=== PATIENT | female | born 1980 | race African-American/Black ===

== ENCOUNTER 2016-10-12 17:42 | Emergency (ER) | payer SELFPAY ==
[~2016-10-12 17:42] MED LIST: AMOX500C PO; AZIT250T6 PO; CEPH-264 PO; CLIN300C8 PO; ESOM20CA PO; HYDR-2758 PO; HYDR-971 PO; HYDR1TAB10 PO; IBUP200T43 PO; NAPR500T3 PO; OMEP20CA9 PO; OXYC-323 PO; RANITADINE; TRAM50TA PO; clonazepam; dilantin; doxepin; doxycycline PO; paxil; risperdal
[2016-10-12 17:45] VITALS: BP 92/69
--- NOTE | 2016-10-12 18:13 | ED.ADGEN ---
Past History Past Medical History: Anxiety, Bipolar, Depression, Seizure, Schizophrenia Past Surgical History: No Surgical History Smoking: Cigarettes, Less than 1pk/day Alcohol Use: None Drug Use: None Adult General Chief Complaint Chief Complaint Dental pain HPI HPI Patient is a 36 year old female who presents with with dental pain. She states it started hurting earlier today. She has appointment she made 3 days ago for next week to get all her teeth removed. She denies any fevers chills trismus or change in her voice. Review of Systems Review of Systems Constitutional: Denies fever or chills [] Eyes: Denies change in visual acuity, redness, or eye pain [] HENT: Denies nasal congestion or sore throat [] Respiratory: Denies cough or shortness of breath [] Cardiovascular: No additional information not addressed in HPI [] GI: Denies abdominal pain, nausea, vomiting, bloody stools or diarrhea [] : Denies dysuria or hematuria [] Musculoskeletal: Denies back pain or joint pain [] Integument: Denies rash or skin lesions [] Neurologic: Denies headache, focal weakness or sensory changes [] Endocrine: Denies polyuria or polydipsia [] Current Medications Current Medications Current Medications Medications (Trade) Dose Ordered Sig/Thang Start Time Stop Time Status Last Admin Dose Admin Acetaminophen/ Hydrocodone Bitart (Lortab 5/325) 1 tab 1X ONCE 10/12/16 18:35 10/12/16 18:36 DC Penicillin V Potassium (Veetid) 500 mg 1X ONCE 10/12/16 18:45 10/12/16 18:46 Allergies Allergies Allergies Coded Allergies Type Severity Reaction Last Updated Verified lorazepam Allergy Intermediate 02/11/15 Yes Physical Exam Physical Exam Constitutional: Well developed, well nourished, no acute distress, non-toxic appearance. [] HENT: Normocephalic, atraumatic, bilateral external ears normal, oropharynx moist, no oral exudates, nose normal. Dental caries with tenderness palpation in the right upper jaw, no abscess or apical erythema noted Eyes: PERRLA, EOMI, conjunctiva normal, no discharge. [] Neck: Normal range of motion, no tenderness, supple, no stridor. [] Cardiovascular:Heart rate regular rhythm, no murmur [] Lungs & Thorax: Bilateral breath sounds clear to auscultation [] Abdomen: Bowel sounds normal, soft, no tenderness, no masses, no pulsatile masses. [] Skin: Warm, dry, no erythema, no rash. [] Back: No tenderness, no CVA tenderness. [] Extremities: No tenderness, no cyanosis, no clubbing, ROM intact, no edema. [] Neurologic: Alert and oriented X 3, normal motor function, normal sensory function, no focal deficits noted. [] Psychologic: Affect normal, judgement normal, mood normal. [] Current Patient Data Vital Signs Vital Signs Date Time Temp Pulse Resp B/P (MAP) Pulse Ox O2 Delivery O2 Flow Rate FiO2 10/12/16 17:45 98.0 91 20 98 Room Air EKG EKG [] Radiology/Procedures Radiology/Procedures [] Course & Med Decision Making Course & Med Decision Making Pertinent Labs and Imaging studies reviewed. (See chart for details) We'll DC with 12 tablets of Food[employer] and [employer] VK 500 Q6 for 7 days. Final Impression Final Impression Dental pain Problems: Dragon Disclaimer Dragon Disclaimer This electronic medical record was generated, in whole or in part, using a voice recognition dictation system. BRAD CASTANO MD October 12, 2016 18:13
[2016-10-12] MEDS ORDERED: HYDROcodone/APAP 5/325MG 1 TAB TABLET PO ONE (18:35)
[2016-10-12] MEDS ORDERED: PENI500T PO (18:35)
[2016-10-12] MEDS ORDERED: HYDR-971 PO (18:35)
[2016-10-12] MEDS ORDERED: PENICILLIN V K 250 MG TABLET. PO ONE (18:45)
== END 2016-10-12 18:45 | disposition home or self-care (01) ==
LOC: ER 17:42
DX: K08.89 Other specified disorders of teeth and supporting structures (principal); F20.9 Schizophrenia, unspecified; F17.210 Nicotine dependence, cigarettes, uncomplicated; Z88.8 Allergy status to other drugs, medicaments and biological substances
CPT/HCPCS: 99283

== ENCOUNTER 2016-10-23 07:22 | Emergency (ER) | payer SELFPAY ==
[~2016-10-23 07:22] MED LIST changes: +PENI500T PO
[2016-10-23 07:33] VITALS: BP 102/61
--- NOTE | 2016-10-23 07:43 | PHYS DOC ---
Past History Past Medical History: Anxiety, Bipolar, Depression, Seizure, Schizophrenia Past Surgical History: , Hysterectomy Smoking: Cigarettes, Less than 1pk/day Alcohol Use: None Drug Use: None Adult General Chief Complaint Chief Complaint: DENTAL PROBLEM HPI HPI Patient is a 36-year-old female who presents complaining of dental pain. Patient states a couple of days ago she had a tooth pulled and is having pain in that location. She states they put her on penicillin and Tylenol 3 but those are not helping. She states she is allergic to ibuprofen which makes her tongue swell and also allergic to tramadol. She is requesting something stronger for pain. Patient tells me that she saw a dentist in [place]. I did note that when she was here earlier this month she told the physician that she was planning to have all of her teeth pulled. Today she told me that "they aren't going to do that for a couple of weeks", I ask her why not and she stated that they needed to schedule her for a longer time to do that. I advised the patient that she should call the office of the dentist who is treating her, she first told me that she had not call the office, then she told me she had called the office but they do not have an answering service in the past, then she told me she tried calling the office this morning. Review of Systems Review of Systems Constitutional: Denies fever or chills [] HENT: As in history of present illness Allergies Allergies Allergies Coded Allergies Type Severity Reaction Last Updated Verified lorazepam Allergy Intermediate 02/11/15 Yes Physical Exam Physical Exam Constitutional: Well developed, well nourished, alert, mentating normally, no difficulty with speech, handling her secretions well, no difficulty with swallowing. HENT: Normocephalic, atraumatic, bilateral external ears normal, bilateral EACs normal, bilateral TMs normal, generally poor dentition. The left maxillary molars appear to have been fractured off at the gumline. There is no evidence of acute abscess in terms of localized swelling, no purulent drainage, however, her left maxillary gums are moderately inflamed. I do not see evidence of a recent extraction, it appears to me that her teeth were fractured. Eyes: conjunctiva normal, no discharge. [] Neck: Normal range of motion, no stridor. [] Skin: Warm, dry, no erythema, no rash. [] Extremities: No tenderness, no cyanosis, no clubbing, ROM intact, no edema. [] Neurologic: Alert and oriented X 3, normal motor function, normal sensory function, no focal deficits noted. [] Current Patient Data Vital Signs Vital Signs Date Time Temp Pulse Resp B/P (MAP) Pulse Ox O2 Delivery O2 Flow Rate FiO2 10/23/16 07:33 98.3 79 16 98 Room Air EKG EKG [] Radiology/Procedures Radiology/Procedures [] Course & Med Decision Making Course & Med Decision Making Pertinent Labs and Imaging studies reviewed. (See chart for details) 36-year-old female who has had multiple ED visits for dental pain and caries, has been advised multiple times to seek dental follow-up and that we are not able to treat dental pain in the emergency department. She is already on penicillin by her history and does have a dentist to follow-up with. She states ibuprofen makes her tongue swell. I advised her that I will not prescribe further opiates since this is a chronic problem that needs to be managed through her dentist. I strongly advised her to obtain dental follow-up as soon as possible. [] Dragon Disclaimer Dragon Disclaimer This chart was dictated in whole or in part using Voice Recognition software in a busy, high-work load, and often noisy Emergency Department environment. It may contain unintended and wholly unrecognized errors or omissions. Departure Departure: Impression: Primary Impression: Pain due to dental caries Disposition: 01 HOME, SELF-CARE Condition: STABLE Referrals: SARAH NEGRON (PCP) Patient Instructions: Dental Caries Additional Instructions: As we discussed, I recommend that you call the dentist's office and make an appointment as soon as possible. Continue to take the penicillin prescribed by the dentist. You may try cold packs or warm packs to the site of your face, also use a warm saltwater gargle or rinse several times a day. FRANDY GRANADO MD October 23, 2016 07:43
== END 2016-10-23 07:50 | disposition home or self-care (01) ==
LOC: ER 07:22
DX: K02.9 Dental caries, unspecified (principal); F20.9 Schizophrenia, unspecified; F17.210 Nicotine dependence, cigarettes, uncomplicated; Z88.8 Allergy status to other drugs, medicaments and biological substances
CPT/HCPCS: 99281

== ENCOUNTER 2016-11-09 14:29 | Emergency (ER) | payer OTHER ==
[2016-11-09 14:45] VITALS: BP 114/83
--- NOTE | 2016-11-09 16:39 | PHYS DOC ---
Text Text Patient needs to follow up with dental clinic for removal of lower teeth. She will be treated with norco and penicillin for infection General Chief Complaint: DENTAL PROBLEM Stated Complaint: DENTAL PAIN Time Seen by MD: 14:41 Source: patient Exam Limitations: no limitations Problems: History of Present Illness Initial Comments complain of pain to the teeth to the left lower mandible region. States that she has an appointment on November 25 for removal of the lower teeth and then she will be fitted for dentures. She denies any bleeding from the gums She denies any throat pain, swelling or drainage. Denies neck pain or stiffness No fever or chills Timing/Duration: gradual Severity: moderate Location: dental Prearrival Treatment: no prearrival treatment Presenting Symptoms/Injuries: Patient unable to take ibuprofen secondary to ulcer Associated Symptoms: denies symptoms Allergies: Coded Allergies: lorazepam (Verified Allergy, Intermediate, 02/11/15) ibuprofen (Verified Allergy, Unknown, 10/23/16) tramadol (Verified Allergy, Unknown, 10/23/16) Past Medical History Medical History: other (long history of dental carires) Surgical History: noncontributory Family History Significant Family History: no pertinent family hx Social History Alcohol: none Drugs: none Constitutional: no symptoms reported Eyes: no symptoms reported Ears: no symptoms reported Nose: no symptoms reported Mouth: pain, swelling Throat: no symptoms reported Physical Exam Eyes: bilateral eye normal inspection Ears: bilateral ear auricle normal Nose: normal inspection Mouth/Throat: pharynx normal, dental tenderness Neck: non-tender, full range of motion, supple Cardiovascular/Respiratory: regular rate, rhythm, normal breath sounds, no respiratory distress Neurologic/Psychiatric: weed thinner II-XII nml as tested Skin: normal color (lower mandible middle teeth affected with severe caries and erosion of the gum. No abscess noted) BLAKE CAMARILLO MD Nov 09, 2016 16:39
[2016-11-10] MEDS ORDERED: ALPR0.25 PO (07:32)
== END 2016-11-09 16:57 | disposition home or self-care (01) ==
LOC: ER 14:29
DX: K08.89 Other specified disorders of teeth and supporting structures (principal); Z88.6 Allergy status to analgesic agent; Z88.8 Allergy status to other drugs, medicaments and biological substances
CPT/HCPCS: 99283

== ENCOUNTER 2016-11-10 07:01 | Emergency (ER) | payer OTHER ==
[~2016-11-10] VITALS: Ht 154.9 cm; Wt 54.4 kg
[2016-11-10 07:24] VITALS: BP 128/87
--- NOTE | 2016-11-10 07:29 | PHYS DOC ---
Past History Past Medical History: No Pertinent History Past Surgical History: , Hysterectomy Smoking: Cigarettes, Less than 1pk/day Alcohol Use: None Drug Use: None Adult General Chief Complaint Chief Complaint: ANXIETY/PANIC ATTACK HPI HPI This 36-year-old lady who has a history of depression and anxiety presents with panic attacks. She has been on medication for this in the past including lorazepam but does not have any now. She states that she has an appointment for the next several days with her psychiatrist. Review of Systems Review of Systems Constitutional: Denies fever or chills [] Eyes: Denies change in visual acuity, redness, or eye pain [] HENT: Denies nasal congestion or sore throat [] Respiratory: Denies cough or shortness of breath [] Cardiovascular: No additional information not addressed in HPI [] GI: Denies abdominal pain, nausea, vomiting, bloody stools or diarrhea [] : Denies dysuria or hematuria [] Musculoskeletal: Denies back pain or joint pain [] Integument: Denies rash or skin lesions [] Neurologic: Denies headache, focal weakness or sensory changes [] Endocrine: Denies polyuria or polydipsia [] Allergies Allergies Allergies Coded Allergies Type Severity Reaction Last Updated Verified lorazepam Allergy Intermediate 02/11/15 Yes ibuprofen Allergy Unknown 10/23/16 Yes tramadol Allergy Unknown 10/23/16 Yes Physical Exam Physical Exam Constitutional: Well developed, well nourished, no acute distress, non-toxic appearance. [] HENT: Normocephalic, atraumatic, bilateral external ears normal, dry mucous membranes, no oral exudates, nose normal. [] Eyes: PERRLA, EOMI, conjunctiva normal, no discharge. [] Neck: Normal range of motion, no tenderness, supple, no stridor. [] Cardiovascular:Heart rate regular rhythm, no murmur [] Lungs & Thorax: Bilateral breath sounds clear to auscultation [] Abdomen: Bowel sounds normal, soft, no tenderness, no masses, no pulsatile masses. [] Skin: Warm, dry, no erythema, no rash. [] Back: No tenderness, no CVA tenderness. [] Extremities: No tenderness, no cyanosis, no clubbing, ROM intact, no edema. [] Neurologic: Alert and oriented X 3, normal motor function, normal sensory function, no focal deficits noted. [] Psychologic: Affect is somewhat flat, judgement normal, mood normal. [] EKG EKG [] Radiology/Procedures Radiology/Procedures [] Impressions: Anxiety depression Course & Med Decision Making Course & Med Decision Making Pertinent Labs and Imaging studies reviewed. (See chart for details) Patient was instructed she needs to follow-up with her psychiatrist for his problem however she was given a prescription for a few Xanax [] Dragon Disclaimer Dragon Disclaimer This chart was dictated in whole or in part using Voice Recognition software in a busy, high-work load, and often noisy Emergency Department environment. It may contain unintended and wholly unrecognized errors or omissions. Departure Departure: Referrals: SARAH NEGRON (PCP) BETHEL LUNSFORD MD Nov 10, 2016 07:29
[2016-11-10] MEDS ORDERED: ALPR0.25 PO (07:32)
== END 2016-11-10 07:37 | disposition home or self-care (01) ==
LOC: ER 07:01
DX: F41.9 Anxiety disorder, unspecified (principal); F32.9 Major depressive disorder, single episode, unspecified; F17.210 Nicotine dependence, cigarettes, uncomplicated; Z88.6 Allergy status to analgesic agent; Z88.8 Allergy status to other drugs, medicaments and biological substances
CPT/HCPCS: 99283; 99284

== ENCOUNTER 2016-11-16 13:46 | Emergency (ER) | payer OTHER ==
[~2016-11-16] VITALS: Ht 154.9 cm; Wt 54.5 kg
[~2016-11-16 13:46] MED LIST changes: +ALPR0.25 PO
[2016-11-16 13:55] VITALS: BP 111/75
--- NOTE | 2016-11-16 14:12 | ED.ADGEN ---
Past History Past Medical History: Anxiety, Depression, Seizure Past Surgical History: , Hysterectomy Smoking: Cigarettes, Less than 1pk/day Alcohol Use: None Drug Use: None Adult General Chief Complaint Chief Complaint anxiety HPI HPI Patient is a 36 year old female who presents with siting apparently attacks with no obvious triggers this occurs quite frequently she has had some mental health evaluations in the past and used to take Klonopin but is evasive about why she is not on it anymore. Patient denies suicidal or homicidal ideation. Patient denies auditory or visual hallucinations. Denies fever or headache chest pain shortness of breath or abdominal pain. Review of Systems Review of Systems Constitutional: Denies fever or chills [] Eyes: Denies change in visual acuity, redness, or eye pain [] HENT: Denies nasal congestion or sore throat [] Respiratory: Denies cough or shortness of breath [] Cardiovascular: No additional information not addressed in HPI [] GI: Denies abdominal pain, nausea, vomiting, bloody stools or diarrhea [] : Denies dysuria or hematuria [] Musculoskeletal: Denies back pain or joint pain [] Integument: Denies rash or skin lesions [] Neurologic: Denies headache, focal weakness or sensory changes [] Endocrine: Denies polyuria or polydipsia [] Current Medications Current Medications Current Medications Medications (Trade) Dose Ordered Sig/Thang Start Time Stop Time Status Last Admin Dose Admin Lorazepam (Ativan) 1 mg 1X ONCE 11/16/16 14:15 11/16/16 14:16 UNV Allergies Allergies Allergies Coded Allergies Type Severity Reaction Last Updated Verified lorazepam Allergy Intermediate 02/11/15 Yes ibuprofen Allergy Unknown 10/23/16 Yes tramadol Allergy Unknown 10/23/16 Yes Physical Exam Physical Exam Constitutional: Well developed, well nourished, no acute distress, non-toxic appearance. [] HENT: Normocephalic, atraumatic, bilateral external ears normal, oropharynx moist, no oral exudates, nose normal. [] Eyes: PERRLA, EOMI, conjunctiva normal, no discharge. [] Neck: Normal range of motion, no tenderness, supple, no stridor. [] Cardiovascular:Heart rate regular rhythm, no murmur [] Lungs & Thorax: Bilateral breath sounds clear to auscultation [] Abdomen: Bowel sounds normal, soft, no tenderness, no masses, no pulsatile masses. [] Skin: Warm, dry, no erythema, no rash. [] Back: No tenderness, no CVA tenderness. [] Extremities: No tenderness, no cyanosis, no clubbing, ROM intact, no edema. [] Neurologic: Alert and oriented X 3, normal motor function, normal sensory function, no focal deficits noted. [] Psychologic: Affect is flat, judgement normal, mood somewhat depressed and mildly to moderately anxious. No suicidal IDEATION AND AUDITORY OR VISUAL HALLUCINATION.. [] Current Patient Data Vital Signs Vital Signs Date Time Temp Pulse Resp B/P (MAP) Pulse Ox O2 Delivery O2 Flow Rate FiO2 11/16/16 13:55 97.9 100 20 99 Room Air EKG EKG [] Radiology/Procedures Radiology/Procedures [] Course & Med Decision Making Course & Med Decision Making Pertinent Labs and Imaging studies reviewed. (See chart for details) Patient was given resources for outpatient psychiatric follow-up. She has requested prescription for anxiety medication which have advised her to follow- up with a PCP. Give her one Xanax tablet here. Patient is stable for outpatient management and evaluation she does not represent a threat to others or to herself and she does not suffer from psychosis at this time. [] Final Impression Final Impression Anxiety disorder [] Problems: Dragon Disclaimer Dragon Disclaimer This electronic medical record was generated, in whole or in part, using a voice recognition dictation system. EDUARDO MARTIN MD Nov 16, 2016 14:12
[2016-11-16] MEDS ORDERED: LORazepam 1 MG TABLET PO ONE (14:15)
[2016-11-16] MEDS ORDERED: ALPRAZolam 0.25 MG TABLET PO ONE (14:30)
[2016-11-17] MEDS ORDERED: HYDR-971 PO (20:56)
[2016-11-17] MEDS ORDERED: PENI500T PO (20:56)
== END 2016-11-16 14:52 | disposition home or self-care (01) ==
LOC: ER 13:46
DX: F41.9 Anxiety disorder, unspecified (principal); F32.9 Major depressive disorder, single episode, unspecified; F17.210 Nicotine dependence, cigarettes, uncomplicated; Z88.6 Allergy status to analgesic agent; Z88.8 Allergy status to other drugs, medicaments and biological substances
CPT/HCPCS: 99284

== ENCOUNTER 2016-11-17 20:13 | Emergency (ER) | payer OTHER ==
[~2016-11-17] VITALS: Ht 154.9 cm; Wt 54.5 kg
--- NOTE | 2016-11-17 20:16 | ED.ADGEN ---
Past History Past Medical History: Anxiety, Depression, Seizure Past Surgical History: , Hysterectomy Smoking: Cigarettes, Less than 1pk/day Alcohol Use: None Drug Use: None Adult General Chief Complaint Chief Complaint Dental pain HPI HPI Patient is a 36 year old [place] female who presents with. She states she's having pain in the right lower jaw that started yesterday. She states she has a dentist appointment on 25 November to get the rest of her teeth pulled. She states that over the years a been 0.1 or 2 teeth at a time and following the event to pull all them out. She denies any trismus, change in voice fevers chills or vomiting. He states that she is allergic to tramadol and she took Tylenol earlier with this just not working. Review of Systems Review of Systems Constitutional: Denies fever or chills [] Eyes: Denies change in visual acuity, redness, or eye pain [] HENT: Denies nasal congestion or sore throat [] Respiratory: Denies cough or shortness of breath [] Cardiovascular: No additional information not addressed in HPI [] GI: Denies abdominal pain, nausea, vomiting, bloody stools or diarrhea [] : Denies dysuria or hematuria [] Musculoskeletal: Denies back pain or joint pain [] Integument: Denies rash or skin lesions [] Neurologic: Denies headache, focal weakness or sensory changes [] Endocrine: Denies polyuria or polydipsia [] Allergies Allergies Allergies Coded Allergies Type Severity Reaction Last Updated Verified lorazepam Allergy Intermediate 02/11/15 Yes ibuprofen Allergy Unknown 10/23/16 Yes tramadol Allergy Unknown 10/23/16 Yes Physical Exam Physical Exam Constitutional: Well developed, well nourished, no acute distress, non-toxic appearance. [] HENT: Normocephalic, atraumatic, bilateral external ears normal, oropharynx moist, no oral exudates, nose normal. Numerous dental caries and poor dentition , tender palpation over the right lower jawline, no obvious abscess, no [place] angina. Eyes: PERRLA, EOMI, conjunctiva normal, no discharge. [] Neck: Normal range of motion, no tenderness, supple, no stridor. [] Cardiovascular:Heart rate regular rhythm, no murmur [] Lungs & Thorax: Bilateral breath sounds clear to auscultation [] Abdomen: Bowel sounds normal, soft, no tenderness, no masses, no pulsatile masses. [] Skin: Warm, dry, no erythema, no rash. [] Back: No tenderness, no CVA tenderness. [] Extremities: No tenderness, no cyanosis, no clubbing, ROM intact, no edema. [] Neurologic: Alert and oriented X 3, normal motor function, normal sensory function, no focal deficits noted. [] Psychologic: Affect normal, judgement normal, mood normal. [] Current Patient Data Vital Signs Vital Signs Date Time Temp Pulse Resp B/P (MAP) Pulse Ox O2 Delivery O2 Flow Rate FiO2 11/17/16 20:32 97.6 93 20 98 Room Air EKG EKG [] Radiology/Procedures Radiology/Procedures [] Course & Med Decision Making Course & Med Decision Making Pertinent Labs and Imaging studies reviewed. (See chart for details) Appreciate any abscesses that need to be drained or the patient be referred on. We'll treat with Pen-Vee K for a week and 12 tablets of hydrocodone. Patient's being discharged in stable condition with return precautions. Final Impression Final Impression Dental pain Problems: Dragon Disclaimer Dragon Disclaimer This electronic medical record was generated, in whole or in part, using a voice recognition dictation system. BRAD CASTANO MD Nov 17, 2016 20:16
[2016-11-17 20:32] VITALS: BP 104/69
[2016-11-17] MEDS ORDERED: PENI500T PO (20:56)
[2016-11-17] MEDS ORDERED: HYDR-971 PO (20:56)
[2016-11-17] MEDS ORDERED: HYDROcodone/APAP 5/325MG 1 TAB TABLET PO ONE (21:00)
== END 2016-11-17 21:27 | disposition home or self-care (01) ==
LOC: ER 20:13
DX: K08.89 Other specified disorders of teeth and supporting structures (principal); F17.210 Nicotine dependence, cigarettes, uncomplicated; Z88.6 Allergy status to analgesic agent; Z88.8 Allergy status to other drugs, medicaments and biological substances
CPT/HCPCS: 99283

== ENCOUNTER 2016-11-27 05:15 | Emergency (ER) | payer OTHER ==
[~2016-11-27] VITALS: Ht 154.9 cm; Wt 54.4 kg
[2016-11-27] MEDS ORDERED: zyprexa (05:33)
--- NOTE | 2016-11-27 05:44 | PHYS DOC ---
Past History Past Medical History: Anxiety, Depression, Seizure Additional Past Medical Histor: drug-seeking behavior Past Surgical History: , Hysterectomy Smoking: Cigarettes, Less than 1pk/day Alcohol Use: None Drug Use: None Adult General Chief Complaint Chief Complaint: ANXIETY/PANIC ATTACK [facility] Patient is a pleasant 36-year-old female with a history of chronic anxiety and dental caries with problems with chronic pain who presents with anxiety tonight. She says that the anxiety is been bothering her since her son at age 1 in 1999. She has frequent attacks is normally on clonazepam for her symptoms. She sees the local health facility here for her treatments and she normally goes for counseling once a month. Tonight her chest is which is typical for her attacks was across her chest without chest pain, dizziness, nausea, vomiting, cough, runny nose or fevers chills. She admits this is nothing new but she's not any medication at this time is looking for treatment. She denies any trauma, travel, pulmonary embolism risk factors, she denies any drug use at this time. When I confronted the patient about her 14 visits for similar complaints over the last year she denied having come to the ER 3 times and she believes that someone else might be using her name. Although her complaint is almost identical to several prior visits she became very defensive. It is my concern that she is beginning to use the emergency department for her primary care although there is nothing new about her symptoms today she believes that she isn't need of acute treatment for her anxiety. Review of Systems Review of Systems Constitutional: Denies fever or chills [] Eyes: Denies change in visual acuity, redness, or eye pain [] HENT: Denies nasal congestion or sore throat [] Respiratory: Denies cough she does complain of chest tightness with her chest discomfort Cardiovascular: No additional information not addressed in HPI [] GI: Denies abdominal pain, nausea, vomiting, bloody stools or diarrhea [] : Denies dysuria or hematuria [] Musculoskeletal: Denies back pain or joint pain [] Integument: Denies rash or skin lesions [] Neurologic: Denies headache, focal weakness or sensory changes [] Endocrine: Denies polyuria or polydipsia [] Allergies Allergies Allergies Coded Allergies Type Severity Reaction Last Updated Verified ibuprofen Allergy Unknown 10/23/16 Yes tramadol Allergy Unknown 10/23/16 Yes lorazepam Adverse Reaction Intermediate 11/27/16 Yes Physical Exam Physical Exam Vital signs reviewed unremarkable. Constitutional: Well developed, well nourished, patient is no acute distress but obviously anxious. HENT: Normocephalic, atraumatic, bilateral external ears normal, dry mucous membranes with almost no dentition, no oral exudates, nose normal. [] Eyes: PERRLA, EOMI, conjunctiva normal, no discharge. [] Neck: Normal range of motion, no tenderness, supple, no stridor. [] Cardiovascular:Heart rate regular rhythm, no murmur [] Lungs & Thorax: Bilateral breath sounds clear to auscultation [] Abdomen: Bowel sounds normal, soft, no tenderness, no masses, no pulsatile masses. [] Skin: Warm, dry, no erythema, no rash. [] Back: No tenderness, no CVA tenderness. [] Extremities: No tenderness, no cyanosis, no clubbing, ROM intact, no edema. [] Neurologic: Alert and oriented X 3, normal motor function, normal sensory function, no focal deficits noted. [] Psychologic: Patient is very anxious and very defiant that she is not been here to the emergency department more than 3 times last year. EKG EKG [] Time 5:47 AM demonstrates normal sinus rhythm low voltage QRS and normal MI interval, QRS interval normal QTC no evidence of acute coronary event or ischemia. Radiology/Procedures Radiology/Procedures Two-view chest x-ray PA and lateral done at 5:53 AM 11/27/2016 demonstrates normal lung deras no hyperinflation no pleural effusion or pericardial effusion normal cardiac size without specific infiltrate. No evidence of pneumothorax or subdiaphragmatic air. [] Course & Med Decision Making Course & Med Decision Making Pertinent Labs and Imaging studies reviewed. (See chart for details) reviewed patient's nursing notes, vital signs, physical exam findings and chest x-ray and EKG given duration of symptoms for the last 17 years patient having anxiety since the of her son. She seems to use the emergency department as her primary care doctor we talked about how she needs to follow-up with her primary care physician. I worried about her drug-seeking behavior and her continued denial of her frequency of use. I discussed with her referral to psychiatry and pain to help to help out with her symptoms. Although she is saying she is anxious her vital signs are stable and she demonstrates no occult withdrawal symptoms. I will advise that she follows up for refill her clonazepam as she takes chronically. Impression: Long-standing anxiety, questionable drug-seeking behavior, chronic benzodiazepine use Disposition PCP referral to psychiatry and possible therapy for her benzo use. [] Dragon Disclaimer Dragon Disclaimer This chart was dictated in whole or in part using Voice Recognition software in a busy, high-work load, and often noisy Emergency Department environment. It may contain unintended and wholly unrecognized errors or omissions. Departure Departure: Impression: Primary Impression: Anxiety and depression Additional Impression: Drug-seeking behavior Disposition: HOME, SELF-CARE Condition: STABLE Referrals: SARAH NEGRON (PCP) Patient Instructions: Alcohol and Drug Addiction, Finding Treatment, Anxiety and Panic Attacks Additional Instructions: I'm concerned with this patient's presentation that they may be addicted to narcotic medications and benzodiazepines. Their behavior could be described as drug seeking in nature and I'm concerned that if I do not explain to them my concerns and we have a discussion about how to treat this in the future we will continue to see them using these medications and possibly dangerous manners. We talked about over utilization of these medications associated with narcotics to include acetaminophen when taking large doses can cause liver injury that is permanent nature. We discussed a treatment plan and need for follow-up with a paint mixer machine to talk about alternatives to narcotic medications. We also talked about possible psychiatric intervention to help him cope with her chronic pain condition. We also discussed possible social work involvement or addiction treatment involvement to help address the possible withdrawal symptoms that she may be experiencing which is causing the further use narcotics in this way. I will take the time to provide them addiction clinic information in the follow- up if they choose to accept my help. Scripts Clonazepam (CLONAZEPAM) 1 Mg Tablet 1 TAB PO TID, #7 TAB 0 Refills Prov: JAZMIN GARIBAY MD 11/27/16 Problem Qualifiers JAZMIN GARIBAY MD Nov 27, 2016 05:44
[2016-11-27 06:10] VITALS: BP 124/84
[2016-11-27] MEDS ORDERED: CLON1TAB3 PO (06:11)
--- NOTE | 2016-11-27 06:28 | EKG ---
[address] [address] Test Date: 2016-11-27 Test Time: 05:47:45 Pat Name: CIRA SINGH Department: Room: Gender: F Firer Low Pressure: : 1980 Requested By: JAZMIN GARIBAY Order Number: [id number] Reading MD: Measurements Intervals [place] Rate: 96 P: 36 LA: 110 QRS: 54 QRSD: 84 T: 43 QT: 366 QTc: 469 Interpretive Statements SINUS RHYTHM LOW LIMB LEAD VOLTAGE QRS(T) CONTOUR ABNORMALITY CANNOT RULE OUT ANTEROSEPTAL MYOCARDIAL DAMAGE RI6.01 Unconfirmed report No previous ECG available for comparison
--- NOTE | 2016-11-27 08:14 | RAD ---
PA AND LATERAL CHEST RADIOGRAPH Clinical Indication: CHEST TIGHTNESS And shortness of air today Comparison: Frontal chest 09/14/2014. Findings: The cardiomediastinal silhouette is normal. Pulmonary vasculature is normal. The lungs are clear. No pleural effusion or pneumothorax is seen. There is no acute bone abnormality. IMPRESSION: No acute cardiopulmonary process.
== END 2016-11-27 06:14 | disposition home or self-care (01) ==
LOC: ER 05:15
DX: F41.8 Other specified anxiety disorders (principal); R07.89 Other chest pain; G89.29 Other chronic pain; F17.210 Nicotine dependence, cigarettes, uncomplicated; Z76.5 Malingerer [conscious simulation]; Z88.6 Allergy status to analgesic agent; Z88.8 Allergy status to other drugs, medicaments and biological substances
CPT/HCPCS: 71020; 93005; 99284-25

== ENCOUNTER 2016-11-27 12:46 | Emergency (ER) | payer MEDICAID, OTHER ==
[~2016-11-27] VITALS: Ht 154.9 cm; Wt 54.5 kg
[~2016-11-27 12:46] MED LIST changes: +CLON1TAB3 PO; +zyprexa
[2016-11-27 12:52] VITALS: BP 124/84
--- NOTE | 2016-11-27 14:32 | PHYS DOC ---
Past History Past Medical History: Anxiety, Depression, Seizure Additional Past Medical Histor: drug-seeking behavior Past Surgical History: , Hysterectomy Smoking: Cigarettes, Less than 1pk/day Alcohol Use: None Drug Use: None Adult General Chief Complaint Chief Complaint: Toothache HPI HPI 36-year-old female well known to our emergency medicine service frequent visits for anxiety and drug seeking behavior with frequent complaint of dental pain and now presents emergency department complaining of dental pain however patient recently had all her teeth removed. All wounds are healed and her gums are intact but she still complaining of dental pain and requesting pain medicine. He was seen hydro mechanic this morning with a complaint of anxiety and was prescribed clonazepam. Is sleepy now but she states this just because she is tired now because of taking the benzodiazepine. Eyes depression or suicidal ideation currently. Review of Systems Review of Systems Constitutional: Denies fever or chills [] Eyes: Denies change in visual acuity, redness, or eye pain [] HENT: Denies nasal congestion or sore throat [] Respiratory: Denies cough or shortness of breath [] Cardiovascular: No additional information not addressed in HPI [] GI: Denies abdominal pain, nausea, vomiting, bloody stools or diarrhea [] : Denies dysuria or hematuria [] Musculoskeletal: Denies back pain or joint pain [] Integument: Denies rash or skin lesions [] Neurologic: Denies headache, focal weakness or sensory changes [] Endocrine: Denies polyuria or polydipsia [] Allergies Allergies Allergies Coded Allergies Type Severity Reaction Last Updated Verified ibuprofen Allergy Unknown 10/23/16 Yes tramadol Allergy Unknown 10/23/16 Yes lorazepam Adverse Reaction Intermediate 11/27/16 Yes Physical Exam Physical Exam Constitutional: Patient fatigued appearing sleeping frequently but easily awaken to verbal stimuli. alert and appropriate when awakened no acute distress , non-toxic appearance. [] HENT: Normocephalic, atraumatic, bilateral external ears normal, oropharynx moist, no oral exudates, since completely edentulous with normal appearing gums no unhealed wounds no soft tissue swelling or erythema and no lesion or mass. Nose normal. [] Eyes: PERRLA, EOMI, conjunctiva normal, no discharge. [] Neck: Normal range of motion, no tenderness, supple, no stridor. [] Cardiovascular:Heart rate regular rhythm, no murmur [] Lungs & Thorax: Bilateral breath sounds clear to auscultation [] Abdomen: Bowel sounds normal, soft, no tenderness, no masses, no pulsatile masses. [] Skin: Warm, dry, no erythema, no rash. [] Back: No tenderness, no CVA tenderness. [] Extremities: No tenderness, no cyanosis, no clubbing, ROM intact, no edema. [] Neurologic: Alert and oriented X 3, normal motor function, normal sensory function, no focal deficits noted. [] Psychologic: Fatigued appearing, judgement normal, mood normal. [] EKG EKG [] Radiology/Procedures Radiology/Procedures [] Course & Med Decision Making Course & Med Decision Making Pertinent Labs and Imaging studies reviewed. (See chart for details) [] Dragon Disclaimer Dragon Disclaimer This chart was dictated in whole or in part using Voice Recognition software in a busy, high-work load, and often noisy Emergency Department environment. It may contain unintended and wholly unrecognized errors or omissions. Departure Departure: Impression: Primary Impression: Drug-seeking behavior Additional Impression: Status post tooth extraction Disposition: 01 HOME, SELF-CARE Condition: STABLE Referrals: SARAH NEGRON (PCP) Additional Instructions: Your dental extraction sites are well-healed and there is no sign of infection, swelling, or abnormality. Her concern that her sleepiness is a result of U taking too much of the narcotics were prescribed this morning. Take ibuprofen as needed for any Discomfort and if you do take your narcotic prescription make sure to not drink alcohol or take other narcotics or benzodiazepines in addition to it. Follow-up with your doctor in 1 day for reevaluation and to discuss safety with narcotic use. Problem Qualifiers MICKY CACERES MD Nov 27, 2016 14:32
== END 2016-11-27 14:40 | disposition home or self-care (01) ==
LOC: ER 12:46
DX: Z76.5 Malingerer [conscious simulation] (principal); F41.9 Anxiety disorder, unspecified; F32.9 Major depressive disorder, single episode, unspecified; F17.210 Nicotine dependence, cigarettes, uncomplicated; Z98.818 Other dental procedure status; Z88.6 Allergy status to analgesic agent; Z88.8 Allergy status to other drugs, medicaments and biological substances
CPT/HCPCS: 99281

== ENCOUNTER 2016-11-29 08:39 | Emergency (ER) | payer MEDICAID, OTHER ==
[~2016-11-29] VITALS: Ht 154.9 cm; Wt 54.4 kg
[2016-11-29 08:52] VITALS: BP 107/77
--- NOTE | 2016-11-29 09:01 | PHYS DOC ---
Past History Past Medical History: No Pertinent History Additional Past Medical Histor: drug-seeking behavior Past Surgical History: , Hysterectomy, Other Smoking: Cigarettes, Less than 1pk/day Alcohol Use: None Drug Use: None Adult General Chief Complaint Chief Complaint: DENTAL PROBLEM HPI HPI This 36-year-old presents with dental pain she has recently had her teeth extracted in the lower mandibular teeth. She had hydrocodone for pain and is on antibiotics but she is out of her hydrocodone. Review of Systems Review of Systems Constitutional: Denies fever or chills [] Eyes: Denies change in visual acuity, redness, or eye pain [] HENT: Denies nasal congestion or sore throat [] Respiratory: Denies cough or shortness of breath [] Cardiovascular: No additional information not addressed in HPI [] GI: Denies abdominal pain, nausea, vomiting, bloody stools or diarrhea [] : Denies dysuria or hematuria [] Musculoskeletal: Denies back pain or joint pain [] Integument: Denies rash or skin lesions [] Neurologic: Denies headache, focal weakness or sensory changes [] Endocrine: Denies polyuria or polydipsia [] Allergies Allergies Allergies Coded Allergies Type Severity Reaction Last Updated Verified ibuprofen Allergy Unknown 10/23/16 Yes tramadol Allergy Unknown 10/23/16 Yes lorazepam Adverse Reaction Intermediate 11/27/16 Yes Physical Exam Physical Exam Constitutional: Well developed, well nourished, no acute distress, non-toxic appearance. [] HENT: Normocephalic, atraumatic, bilateral external ears normal, oropharynx moist, no oral exudates, nose normal. There is obvious dental extractions in her entire mandibular teeth. Eyes: PERRLA, EOMI, conjunctiva normal, no discharge. [] Neck: Normal range of motion, no tenderness, supple, no stridor. [] Cardiovascular:Heart rate regular rhythm, no murmur [] Lungs & Thorax: Bilateral breath sounds clear to auscultation [] Abdomen: Bowel sounds normal, soft, no tenderness, no masses, no pulsatile masses. [] Skin: Warm, dry, no erythema, no rash. [] Back: No tenderness, no CVA tenderness. [] Extremities: No tenderness, no cyanosis, no clubbing, ROM intact, no edema. [] Neurologic: Alert and oriented X 3, normal motor function, normal sensory function, no focal deficits noted. [] Psychologic: Affect normal, judgement normal, mood normal. [] Current Patient Data Vital Signs Vital Signs Date Time Temp Pulse Resp B/P (MAP) Pulse Ox O2 Delivery O2 Flow Rate FiO2 11/29/16 08:52 100.0 92 18 99 Room Air EKG EKG [] Radiology/Procedures Radiology/Procedures [] Impressions: Dental pain Course & Med Decision Making Course & Med Decision Making Patient was given 2 hydrocodone/APAP in the emergency department and she will given given a prescription for pain medications [] Dragon Disclaimer Dragon Disclaimer This chart was dictated in whole or in part using Voice Recognition software in a busy, high-work load, and often noisy Emergency Department environment. It may contain unintended and wholly unrecognized errors or omissions. Departure Departure: Referrals: SARAH NEGRON (PCP) BETHEL LUNSFORD MD Nov 29, 2016 09:01
[2016-11-29] MEDS ORDERED: HYDR-2758 PO (09:04)
[2016-11-29] MEDS ORDERED: HYDROcodone/APAP 5/325MG 1 TAB TABLET PO ONE (09:10)
== END 2016-11-29 09:21 | disposition home or self-care (01) ==
LOC: ER 08:39
DX: K08.89 Other specified disorders of teeth and supporting structures (principal); F17.200 Nicotine dependence, unspecified, uncomplicated; Z76.5 Malingerer [conscious simulation]; Z88.6 Allergy status to analgesic agent; Z88.8 Allergy status to other drugs, medicaments and biological substances
CPT/HCPCS: 99283

== ENCOUNTER 2016-12-01 13:42 | Emergency (ER) | payer OTHER ==
[~2016-12-01] VITALS: Ht 157.5 cm; Wt 45.4 kg
[2016-12-01 13:42] VITALS: BP 120/84
--- NOTE | 2016-12-01 14:44 | PHYS DOC ---
General Chief Complaint: DENTAL PROBLEM Stated Complaint: DENTAL PAIN Time Seen by MD: 14:26 Source: patient, old records Exam Limitations: no limitations Problems: History of Present Illness Initial Comments Patient is a 36-year-old female who comes to the emergency department complaining of mouth pain. Patient had 11 teeth pulled last Tuesday, she states that she is taking penicillin has run out of pain medications. She was seen here twice this past week for the same issue, she was given an unknown quantity of pain medication 4 days ago. Her primary complaint is the region of her right lower premolars, she says that where she had the worst of her dental infections in the past. She denies fever chills sweats or myalgias no headache neck stiffness rash. She has discomfort with eating but no issues with by mouth liquid intake. She denies other complaints and continues to smoke cigarettes. This patient is well known to the department as she has had 11 emergency department visits since June 06 of this year, all for either drug-seeking behavior, anxiety, or dental pain. Timing/Duration: other Severity: severe Location: mouth Prearrival Treatment: over the counter meds, prescription meds Modifying Factors: improves with other Associated Symptoms: other Allergies: Coded Allergies: ibuprofen (Verified Allergy, Unknown, 10/23/16) tramadol (Verified Allergy, Unknown, 10/23/16) lorazepam (Verified Adverse Reaction, Intermediate, 11/27/16) Past Medical History Medical History: other (drug-seeking behavior, anxiety, dental caries and chronic dental pain) Surgical History: other ( section, hysterectomy, D&C, tooth extractions ) Family History Significant Family History: no pertinent family hx Social History Smoker: cigarettes Alcohol: occasionally Drugs: none Constitutional: denies chills, denies diaphoresis, denies fever, denies malaise , denies weakness Ears: denies dizziness, denies pain, denies tinnitus Nose: denies clots, denies congestion, denies epistaxis Mouth: see HPI Throat: denies pain, denies swelling, denies neck stiffness Respiratory: denies cough, denies shortness of breath Cardiovascular: denies chest pain, denies palpitations Gastrointestinal: denies diarrhea, denies nausea, denies vomiting Neurological: denies headache, denies numbness, denies paresthesia Physical Exam General Appearance: mild distress, thin Eyes: bilateral eye normal inspection, bilateral eye PERRL, bilateral eye EOMI Nose: normal inspection Mouth/Throat: other (dentition absent, there is an open wound in the area of her complaint of the right lower premolars, mild gingival swelling and bruising are noted. There is no bony tenderness or exudate noted. 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 She has not followed up with her dentist and she was advised that she must contact her dentist and that no further narcotic medications would be prescribed for this condition moving forward. Patient expressed agreement and understanding. She was advised to stop smoking Departure Time of Disposition: 14:39 Disposition: 01 HOME, SELF-CARE Diagnosis: gingivitis, tobaccoism Condition: GOOD Patient Instructions: Gingivitis, [id number] Additional Instructions: Continue Penicillin. Listerine gargle and spit three times daily. Rx: norco 5mg #5 Stop smoking, seek medical assistance if necessary. No further narcotic pain medications will be prescribed from this ED for this chronic condition. Must follow up with oral surgeon. Call your oral surgeon today to schedule BRIDGET evaluation. Return to ED with new or changing symptoms. MJ ALVAREZ DO Dec 01, 2016 14:44
[2016-12-01] MEDS ORDERED: HYDROcodone/APAP 5/325MG 1 TAB TABLET PO ONE (15:00)
== END 2016-12-01 14:57 | disposition home or self-care (01) ==
LOC: ER 13:42
DX: K05.10 Chronic gingivitis, plaque induced (principal); F17.210 Nicotine dependence, cigarettes, uncomplicated; F41.9 Anxiety disorder, unspecified; G89.29 Other chronic pain; Z76.5 Malingerer [conscious simulation]; Z98.818 Other dental procedure status; Z88.6 Allergy status to analgesic agent; Z88.8 Allergy status to other drugs, medicaments and biological substances
CPT/HCPCS: 99283

== ENCOUNTER 2016-12-07 22:07 | Emergency (ER) | payer OTHER ==
[~2016-12-07] VITALS: Ht 157.5 cm; Wt 54.5 kg
[2016-12-07 22:07] VITALS: BP 116/80
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
[2016-12-07] MEDS ORDERED: cefTRIAXone IM 1 GM VIAL IM ONE (23:15)
[2016-12-07] MEDS ORDERED: ACETAMINOPHEN/CODEINE 300/30MG TABLET PO ONE (23:15)
== END 2016-12-07 23:35 | disposition home or self-care (01) ==
LOC: ER 22:07
DX: Z76.5 Malingerer [conscious simulation] (principal); Z91.19 Patient's noncompliance with other medical treatment and regimen; G89.29 Other chronic pain; K08.89 Other specified disorders of teeth and supporting structures; F17.210 Nicotine dependence, cigarettes, uncomplicated; Z98.818 Other dental procedure status; Z88.6 Allergy status to analgesic agent; Z88.8 Allergy status to other drugs, medicaments and biological substances
CPT/HCPCS: 99281

== ENCOUNTER 2016-12-18 19:56 | Emergency (ER) | payer OTHER ==
[~2016-12-18] VITALS: Ht 154.9 cm; Wt 54.4 kg
[2016-12-18 20:00] VITALS: BP 131/57
[2016-12-18] MEDS ORDERED: STARTER PACK-hydrOXYzine 1 STARTPACK TABLET PO ONE (20:45)
--- NOTE | 2016-12-18 20:52 | PHYS DOC ---
General Chief Complaint: ANXIETY/PANIC ATTACK Stated Complaint: ANXIETY Time Seen by MD: 19:57 Source: patient, old records Exam Limitations: no limitations Problems: History of Present Illness Initial Comments Patient is a 36-year-old female known to this facility with numerous prior ED visits for dental pain and anxiety who comes to the ED complaining of a panic attack. Patient states that she is very anxious about the of her child and her aunt. When asked about her symptoms she described dizziness nausea and trouble breathing. Denies chest pain headache or focal weakness no nausea vomiting. The patient's son 17 years ago at the age of 2. She says her aunt years ago as well. She says she has frequent panic attacks for which she takes clonazepam and follows at the [facility] twice monthly. She denies current suicidal or homicidal ideation and denies any new or abnormal symptoms or stressors/circumstances. She is out of clonazepam and says that "my doctor wouldn't get me in." She is here requesting a prescription for clonazepam or similar. She denies addiction or history of withdrawal symptoms denies hallucinations or tremor. When asked about the numerous ED visits to this facility for nearly identical symptoms the patient becomes defensive and denies that history. She says someone must be stealing her identity and coming to this facility in her place. The patient does appear to be lethargic with mildly slurred speech and she is very slow moving. She appears to be medicated but denies prescription or illicit intake. ED vital signs: 98.7, 81, 20, 131/57, 98% on room air Timing/Duration: 1-3 hours Severity: severe Modifying Factors: improves with medication Associated Symptoms: nausea/vomiting, shortness of breath Allergies: Coded Allergies: ibuprofen (Verified Allergy, Unknown, 10/23/16) tramadol (Verified Allergy, Unknown, 10/23/16) lorazepam (Verified Adverse Reaction, Intermediate, 11/27/16) Past Medical History Medical History: GERD, peptic ulcer disease, seizure, other (anxiety, depression, chronic dental pain, drug-seeking behavior) Surgical History: other (, hysterectomy) Family History Significant Family History: no pertinent family hx Social History Smoker: cigarettes Alcohol: occasionally Drugs: none Review of Systems Constitutional: see HPI, denies chills, denies diaphoresis, denies fever EENTM: see HPI Respiratory: see HPI, denies cough, denies wheezing Cardiovascular: see HPI, denies chest pain, palpitations, denies syncope Gastrointestinal: abdominal pain, denies diarrhea, nausea, denies vomiting Musculoskeletal: denies back pain, denies joint swelling, denies neck pain Psychiatric/Neurological: see HPI Physical Exam General Appearance: WD/WN, no apparent distress (pt sitting quietly on bed in exam room) Eyes: bilateral eye normal inspection, bilateral eye PERRL, bilateral eye EOMI Ear, Nose, Throat: hearing grossly normal, normal ENT inspection Neck: non-tender, supple Respiratory: normal breath sounds, no respiratory distress Cardiovascular: normal peripheral pulses, regular rate, rhythm Gastrointestinal: non tender, soft Back: no CVA tenderness, no vertebral tenderness Extremities: non-tender, normal inspection 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 slow purposeful movements no tremor no SI/HI), oriented x 3 Skin: normal color, warm/dry Orders, Labs, Meds I voiced my concern with the patient regarding her frequent ED visits and noncompliance with outpatient follow-up. The patient appears to be using the emergency department for primary care purposes and inexplicably refuses frequent visits to this facility. Her vital signs are normal and not consistent with those of a patient experiencing a severe panic attack. Her exam reveals no tremor or tachypnea/tachycardia as well as no occult withdrawal symptoms. She can think of no new stressors or symptoms specific to this particular reported panic attack. She is in obvious denial regarding her frequent ED visits as well as her drug seeking behavior which is well documented throughout ED records. She 's been advised previously that her chronic conditions will not continue to be treated with narcotic medications from this ED facility, both by me at my last ED visit with her as well as multiple other colleagues. I discussed seeking behavior and addiction and offered patient assistance obtaining treatment as well as nonnarcotic medication options for today's reported symptoms. Patient refuses nonnarcotic options stating they are ineffective and she expresses displeasure and denial regarding drug-seeking diagnosis. She ultimately leaves the department unhappy with [facility]'s treatment in stable condition with normal vital signs and no objective evidence of severe panic symptoms or drug withdrawal. Impressions: Drug-seeking behavior Opiate dependence by history Chronic benzodiazepine use Noncompliance with medical care Tobaccoism Anxiety Departure Time of Disposition: 20:47 Disposition: 01 HOME, SELF-CARE Diagnosis: anxiety, medical noncompliance, drug seeking behav Condition: STABLE Patient Instructions: Alcohol and Drug Addiction, Finding Treatment, Anxiety and Panic Attacks, [id number] Additional Instructions: As discussed at prior visits and reiterated tonight, you must follow up with your PCP for chronic conditions and medications. You must be vigilant in scheduling appointments and arranging medication refills with your doctor in advance to avoid running out of medications. Refills of narcotic medications will not be given from the ED. Nonnarcotic alternative has been offered to you: Rx given for hydroxyzine 50mg #10 and start pack dispensed. Follow up with your doctor Tuesday. Follow up with [facility] Tuesday, ED staff will provide you address and phone number. Return to ED with new emergent conditions. MJ ALVAREZ DO Dec 18, 2016 20:52
== END 2016-12-18 21:11 | disposition home or self-care (01) ==
LOC: ER 19:56
DX: F41.9 Anxiety disorder, unspecified (principal); Z91.14 Patient's other noncompliance with medication regimen; Z76.5 Malingerer [conscious simulation]; G89.29 Other chronic pain; F32.9 Major depressive disorder, single episode, unspecified; F11.20 Opioid dependence, uncomplicated; F17.210 Nicotine dependence, cigarettes, uncomplicated; F19.10 Other psychoactive substance abuse, uncomplicated; K21.9 Gastro-esophageal reflux disease without esophagitis; Z87.11 Personal history of peptic ulcer disease; Z88.6 Allergy status to analgesic agent; Z88.8 Allergy status to other drugs, medicaments and biological substances
CPT/HCPCS: 99284

== ENCOUNTER 2016-12-24 12:17 | Emergency (ER) | payer OTHER ==
[~2016-12-24] VITALS: Ht 154.9 cm; Wt 54.5 kg
[2016-12-24 14:22] LABS: AMPHETAMINE/METHAMPHETAMINE NEG (NEG); BARBITURATES NEG (NEG); BENZODIAZEPINES POS (NEG); CANNABINOIDS NEG (NEG); COCAINE NEG (NEG); METHADONE NEG (NEG); OPIATES POS (NEG); PHENCYCLIDINE NEG (NEG)
[2016-12-24 14:23] LABS: BACTERIA,URINE 0 /HPF (0-FEW); BILIRUBIN,URINE NEG (NEG); CLARITY,URINE HAZY; COLOR,URINE STRAW; GLUCOSE,URINE NEG (NEG); NITRITE,URINE NEG (NEG); RBC,URINE 0 /HPF (0-2); SQUAMOUS EPITHELIAL CELL,UR FEW /LPF; U PREG PATIENT NEGATIVE (NEG); UROBILINOGEN,URINE 0.2 mg/dL (0.2 mg/dL); WBC,URINE RARE /HPF (0-4)
[2016-12-24 14:30] VITALS: BP 103/73
--- NOTE | 2016-12-24 17:46 | ED.ADGEN ---
Past History Past Medical History: Anxiety, Depression Additional Past Medical Histor: drug-seeking behavior Past Surgical History: , Hysterectomy Smoking: Cigarettes, Less than 1pk/day Alcohol Use: Occasionally Drug Use: None Adult General HPI HPI Patient is a 36-year-old woman, history of anxiety, depression, drug abuse, who presents to the emergency department with initial complaint of back pain. However, when I entered the room, patient stated that she was here for "anxiety ". Upon evaluation, patient is asleep, and requires tactile stimuli to be awoken. Patient noted to be very drowsy, although she is answering all questions appropriately. Patient stated to me that she is here "for anxiety, it feels like I am getting jittery". I discussed with patient that she had stated to the initial knee nurse in triage that she was having back pain. "Patient states "yes I have back pain". Denies any numbness or tingling, denies any chest pain, shortness of breath, any nausea or vomiting. I asked the patient as she is taken any medications today, and she denies any medication use, also denies any drug use, admits to use cigarette use.. Review of Systems Review of Systems Constitutional: Denies fever or chills [] Eyes: Denies change in visual acuity, redness, or eye pain [] HENT: Denies nasal congestion or sore throat [] Respiratory: Denies cough or shortness of breath [] Cardiovascular: No additional information not addressed in HPI [] GI: Denies abdominal pain, nausea, vomiting, bloody stools or diarrhea [] : Denies dysuria or hematuria [] Musculoskeletal: Denies joint pain, complains of chronic back pain. Integument: Denies rash or skin lesions [] Neurologic: Denies headache, focal weakness or sensory changes [] Endocrine: Denies polyuria or polydipsia [] Allergies Allergies Allergies Coded Allergies Type Severity Reaction Last Updated Verified ibuprofen Allergy Unknown 10/23/16 Yes tramadol Allergy Unknown 10/23/16 Yes lorazepam Adverse Reaction Intermediate 11/27/16 Yes Physical Exam Physical Exam Constitutional: Well developed, well nourished, no acute distress, non-toxic appearance. [] HENT: Normocephalic, atraumatic, bilateral external ears normal, oropharynx moist, no oral exudates, nose normal. [Poor dentition. No evidence of active infection.] Eyes: PERRLA, EOMI, conjunctiva normal, no discharge. [] Neck: Normal range of motion, no tenderness, supple, no stridor. [] Cardiovascular:Heart rate regular rhythm, no murmur, S1, S2, rubs or gallops. [] Lungs & Thorax: Bilateral breath sounds clear to auscultation, no wheezing, rhonchi, rales. No chest or crepitus or tenderness. [] Abdomen: Bowel sounds normal, soft, no tenderness, no masses, no pulsatile masses. [] Skin: Warm, dry, no erythema, no rash. [] Back: No midline tenderness, psoas or deformities, patient complaining of pain up and down the entire paraspinal length of the thoracic and lumbar spine, no tissue tension or spasm noted, no lesions or other abnormality identified, no CVA tenderness. [] Extremities: No tenderness, no cyanosis, no clubbing, ROM intact, no edema. [] Neurologic: Alert and oriented X 3, normal motor function, normal sensory function, no focal deficits noted. [] Psychologic: Affect normal, judgement normal, mood normal. [] Current Patient Data Vital Signs Vital Signs Date Time Temp Pulse Resp B/P (MAP) Pulse Ox O2 Delivery O2 Flow Rate FiO2 12/24/16 14:30 103/73 (83) 12/24/16 12:17 97.4 85 18 97 Room Air Lab Results Laboratory Tests Test 12/24/16 13:49 Urine Collection Type Unknown Urine Color Straw Urine Clarity Hazy Urine pH 6.0 Urine Specific [place] <=1.005 Urine Protein Neg (NEG-TRACE) Urine Glucose (UA) Neg mg/dL (NEG) Urine Ketones (Stick) Neg mg/dL (NEG) Urine Blood Neg (NEG) Urine Nitrite Neg (NEG) Urine Bilirubin Neg (NEG) Urine Urobilinogen Dipstick 0.2 mg/dL (0.2 mg/dL) Urine Leukocyte Esterase Neg (NEG) Urine RBC 0 /HPF (0-2) Urine WBC Rare /HPF (0-4) Urine Squamous Epithelial Cells Few /LPF Urine Bacteria 0 /HPF (0-FEW) Urine Test Negative (NEG) Urine Opiates Screen Pos (NEG) Urine Methadone Screen Neg (NEG) Urine Barbiturates Neg (NEG) Urine Phencyclidine Screen Neg (NEG) Urine Amphetamine/Methamphetamine Neg (NEG) Urine Benzodiazepines Screen Pos (NEG) Urine Cocaine Screen Neg (NEG) Urine Cannabinoids Screen Neg (NEG) Urine Ethyl Alcohol Neg (NEG) EKG EKG [] Radiology/Procedures Radiology/Procedures [] Course & Med Decision Making Course & Med Decision Making Pertinent Labs and Imaging studies reviewed. (See chart for details) Based on patient's initial evaluation, I am concerned that she has been using medications that are sedating prior to coming to the ED, regardless of her statements she has not taken anything prior to arrival. Patient is a and O 4, answering questions appropriate, but is drowsy. Patient initially noted to be hypotensive, repeat blood pressures are 100s over 70s, heart rate is in the 80s , she is ambulating without difficulty, denying complaints aside from back pain up and down both sides of her back, denies any midline tenderness or pain, any injuries. I do have concerns for drug-seeking behavior based on patient's examination and her denial of any drug use. UDS obtained is positive for both benzodiazepines and opiates, I did discuss this with the patient, and she asked "are you to give me any pain medication?" I discussed with the patient that due to her level of sedation that it would be inappropriate to give her any additionally sedating medications, patient again stated that she had not taken anything, and I did discuss with the patient her UDS results, at which point the patient said "oh yeah I guess". Discussed with patient that acetaminophen would be appropriate as used per packaging recommendations, but that narcotic medications are not dispensed for chronic pain, especially in situations where there is concern for possible abuse. Discussed concerning symptoms that would prompt return. Patient dressed and exited the emergency department before receiving her discharge paperwork. Final Impression Final Impression [] Problems: Dragon Disclaimer Dragon Disclaimer This electronic medical record was generated, in whole or in part, using a voice recognition dictation system. Departure: Impression: Primary Impression: Drug-seeking behavior Disposition: 01 HOME, SELF-CARE Condition: STABLE ISABELLA ZABALA DO Dec 24, 2016 17:46
== END 2016-12-24 14:41 | disposition home or self-care (01) ==
LOC: ER 12:17
DX: Z76.5 Malingerer [conscious simulation] (principal); G89.29 Other chronic pain; M54.89 Other dorsalgia; F41.9 Anxiety disorder, unspecified; F17.210 Nicotine dependence, cigarettes, uncomplicated; Z88.6 Allergy status to analgesic agent; Z88.8 Allergy status to other drugs, medicaments and biological substances
CPT/HCPCS: 36415; 80305; 80320; 81001; 81025; G0481; 99285-25

== ENCOUNTER 2016-12-24 21:33 | Emergency (ER) | payer OTHER ==
[~2016-12-24] VITALS: Ht 154.9 cm; Wt 54.5 kg
[2016-12-24 21:42] VITALS: BP 102/66
[2016-12-24 22:20] LABS: BILIRUBIN,URINE NEG (NEG); CLARITY,URINE CLEAR; COLOR,URINE YELLOW; GLUCOSE,URINE NEG (NEG); NITRITE,URINE NEG (NEG); UROBILINOGEN,URINE 0.2 mg/dL (0.2 mg/dL)
[2016-12-24 22:21] LABS: BACTERIA,URINE FEW /HPF (0-FEW); RBC,URINE OCC /HPF (0-2); SQUAMOUS EPITHELIAL CELL,UR MANY /LPF
--- NOTE | 2016-12-24 22:35 | PHYS DOC ---
Past History Past Medical History: Anxiety, Depression Additional Past Medical Histor: drug-seeking behavior Past Surgical History: , Hysterectomy Smoking: Cigarettes, Less than 1pk/day Alcohol Use: Occasionally Drug Use: None Adult General Chief Complaint Chief Complaint: PELVIC PAIN HPI HPI Patient is a 36 year old female who presents with exacerbation of her chronic pelvic pain. She states that this episode has been going on for at least 2 months. She was here earlier in the day at noon but didn't stay and left AMA. She states it sometimes hurts when she urinates. She had nausea and vomiting on Tuesday-none since. She has had a hysterectomy. No fever, no respiratory complaints. No diarrhea. No blood in stool or urine. Review of Systems Review of Systems Constitutional: Denies fever or chills HENT: Denies nasal congestion or sore throat Respiratory: Denies cough or shortness of breath Cardiovascular: No chest pain GI: some lower abdominal pain, nausea, vomiting on TUE, no bloody stools or diarrhea : Denies dysuria or hematuria Musculoskeletal: Denies back pain or joint pain Integument: Denies rash or skin lesions Neurologic: Denies headache, focal weakness or sensory changes Current Medications Current Medications Current Medications Medications (Trade) Dose Ordered Sig/Thang Start Time Stop Time Status Last Admin Dose Admin Acetaminophen/ Hydrocodone Bitart (Lortab 5/325) 1 tab 1X ONCE 12/24/16 22:45 12/24/16 22:46 Allergies Allergies Allergies Coded Allergies Type Severity Reaction Last Updated Verified ibuprofen Allergy Unknown 10/23/16 Yes tramadol Allergy Unknown 10/23/16 Yes lorazepam Adverse Reaction Intermediate 11/27/16 Yes Physical Exam Physical Exam Constitutional: Well developed, well nourished, no acute distress, non-toxic appearance. HENT: Normocephalic, atraumatic, bilateral external ears normal, oropharynx moist, no oral exudates, nose normal. Eyes: PERRLA, EOMI, conjunctiva normal, no discharge. Neck: Normal range of motion, no tenderness, supple, no stridor. Cardiovascular:Heart rate regular rhythm, no murmur Lungs & Thorax: Bilateral breath sounds clear to auscultation Abdomen: Bowel sounds normal, soft, minimal tenderness to palpation; no rebound or guarding, no masses, no pulsatile masses. Skin: Warm, dry, no erythema, no rash. Back: No tenderness, no CVA tenderness. Extremities: No tenderness, no cyanosis, no clubbing, ROM intact, no edema. Neurologic: Alert and oriented X 3, normal motor function, normal sensory function, no focal deficits noted. Current Patient Data Vital Signs Vital Signs Date Time Temp Pulse Resp B/P (MAP) Pulse Ox O2 Delivery O2 Flow Rate FiO2 12/24/16 21:47 98.2 81 20 102/66 (78) 99 Room Air Lab Results Laboratory Tests Test 12/24/16 21:40 Urine Collection Type Void Urine Color Yellow Urine Clarity Clear Urine pH 5.5 Urine Specific [place] <=1.005 Urine Protein Neg (NEG-TRACE) Urine Glucose (UA) Neg mg/dL (NEG) Urine Ketones (Stick) Neg mg/dL (NEG) Urine Blood Neg (NEG) Urine Nitrite Neg (NEG) Urine Bilirubin Neg (NEG) Urine Urobilinogen Dipstick 0.2 mg/dL (0.2 mg/dL) Urine Leukocyte Esterase Neg (NEG) Urine RBC Occ /HPF (0-2) Urine WBC 1-4 /HPF (0-4) Urine Squamous Epithelial Cells Many /LPF Urine Bacteria Few /HPF (0-FEW) Course & Med Decision Making Course & Med Decision Making Pertinent Labs reviewed. (See chart for details) She has extensive history of seeking pain meds. [facility] shows Rx for hydrocodone filled 12/02; 11/29; 11/28; 11/25; 11/18; 11/09... I explained to her that I cannot write her any prescription. If she has a ride I will give her one hydrocodone tonight. She originally told me that she has a ride "outside" but no one was procured so she called a cab. She was informed that she needs to contact her PCP. Dragon Disclaimer Dragon Disclaimer This chart was dictated in whole or in part using Voice Recognition software in a busy, high-work load, and often noisy Emergency Department environment. It may contain unintended and wholly unrecognized errors or omissions. Departure Departure: Impression: Primary Impression: Chronic female pelvic pain Disposition: HOME, SELF-CARE Condition: GOOD Referrals: SARAH NEGRON (PCP) Patient Instructions: Chronic Pain Management GRACIE GHOTRA MD Dec 24, 2016 22:35
[2016-12-24] MEDS ORDERED: HYDROcodone/APAP 5/325MG 1 TAB TABLET PO ONE (22:45)
== END 2016-12-24 23:44 | disposition home or self-care (01) ==
LOC: ER 21:33
DX: G89.29 Other chronic pain (principal); R10.2 Pelvic and perineal pain; R11.2 Nausea with vomiting, unspecified; F17.210 Nicotine dependence, cigarettes, uncomplicated; Z90.710 Acquired absence of both cervix and uterus; Z76.5 Malingerer [conscious simulation]; Z98.890 Other specified postprocedural states; Z88.6 Allergy status to analgesic agent; Z88.8 Allergy status to other drugs, medicaments and biological substances
CPT/HCPCS: 81001; 99283

== ENCOUNTER 2017-02-25 06:10 | Emergency (ER) | payer OTHER ==
[~2017-02-25] VITALS: Ht 154.9 cm; Wt 54.5 kg
--- NOTE | 2017-02-25 06:34 | PHYS DOC ---
General Chief Complaint: PAIN ON URINATION Stated Complaint: LOWER BACK PAIN,PAIN WHEN URINATES Time Seen by MD: 06:19 Source: patient, old records Exam Limitations: no limitations Problems: History of Present Illness Initial Comments Pt is 36/F to ED c/o dysuria, flank pain. Pt states she's had worsening b/l flank and suprapubic pain, frequency/dysuria/ hesitancy/odor. Denies hematuria, fever/chills/n/v/malaise. Pt says she was at [facility] ED one hour ago for same issues, "they wouldn't give me pain meds." She states she was prescribed pyridium and advised to take tylenol. When she's advised that pyridium is pain treatment of choice for pain due to infections in urinary tract pt states "well, my gums hurt too." I ask her about her gums, as all of her teeth are now absent. She c/o gum pain "here, and here, and here..." Pt points throughout her mouth. No swelling/erythema or other evidence emergent pain condition. No dysphagia, tolerates PO. No back injury, no muscle or bony/midline pain. No leg weakness, incontinence, or saddle anesthesia. She has extensive history of seeking pain meds at this ED and others. [facility] survey in December this year shows Rx for hydrocodone filled 12/02; 11/29; 11/28; 11/25 ; 11/18; 11/09... ED VS: 98.1, 83, 20, 102/66, 97% RA Timing/Duration: unsure Severity: severe Modifying Factors: improves with other Associated Symptoms: other Allergies: Coded Allergies: ibuprofen (Verified Allergy, Unknown, 10/23/16) tramadol (Verified Allergy, Unknown, 10/23/16) lorazepam (Verified Adverse Reaction, Intermediate, 11/27/16) Past Medical History Medical History: GERD, peptic ulcer disease, seizure, other (Drug seeking behavior, Opiate dependence, Chronic pain complaints, Noncompliance with medical care) Surgical History: other Psychosocial History: anxiety, depression Family History Significant Family History: no pertinent family hx Social History Smoker: cigarettes Alcohol: occasionally Review of Systems Constitutional: denies chills, denies diaphoresis, denies fever, denies malaise EENTM: see HPI Respiratory: denies cough, denies shortness of breath Cardiovascular: denies chest pain, denies palpitations Gastrointestinal: see HPI Genitourinary: see HPI Musculoskeletal: see HPI Psychiatric/Neurological: denies headache, denies numbness, denies paresthesia Physical Exam General Appearance: no apparent distress (lying on exam table apparently sleeping, rouses to my voice. 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 No contraindication to toradol. I discussed pt numerous ED visits and hydrocodone rx per [facility], discussed "doctor shopping" by coming here straight from [facility]. Discussed the opiate addiction epidemic and new/changing standards for prescribing opiates. Pt advised that she will not receive opiate meds for chronic or other minor acute pains at this facility moving forward. I advised her to stop smoking, as that likely does not positively contribute to any of her pain complaints. Although I repeated this several times, pt kept repeating "so what are you going to give me for pain?" Departure Time of Disposition: 07:18 Disposition: 01 HOME, SELF-CARE Diagnosis: Drug Seeking, Tobaccoism, UTI, chronic mouth pain Condition: GOOD Patient Instructions: Opiate Dependence, Smoking, You Can Quit, [id number], Urinary Tract Infection, Child Additional Instructions: As discussed, narcotic/opiate prescriptions will not be filled for chronic conditions and unless an acute emergent condition with objective findings is present. Stop smoking, seek medical attention if necessary. Follow up with your dentist this week. Rx: magic mouthwash, amoxicillin Continue pyridium rx from [facility] this morning. Follow up with your PCP this week. Return to ED with new or changing symptoms. MJ ALVAREZ DO Feb 25, 2017 06:34
[2017-02-25 06:57] LABS: CLARITY,URINE HAZY
[2017-02-25 06:58] LABS: BILIRUBIN,URINE NEG (NEG)
[2017-02-25 06:59] LABS: BACTERIA,URINE 0 /HPF (0-FEW); COLOR,URINE ORANGE; RBC,URINE 0 /HPF (0-2); SQUAMOUS EPITHELIAL CELL,UR OCC /LPF; WBC,URINE OCC /HPF (0-4)
[2017-02-25 07:03] LABS: AMPHETAMINE/METHAMPHETAMINE NEG (NEG); BARBITURATES NEG (NEG); BENZODIAZEPINES NEG (NEG); CANNABINOIDS NEG (NEG); COCAINE NEG (NEG); METHADONE NEG (NEG); OPIATES NEG (NEG); PHENCYCLIDINE NEG (NEG)
[2017-02-25 07:15] VITALS: BP 90/53
[2017-02-25] MEDS ORDERED: LIDO:MAALOX:BENADRYL 1:1:1 180 ML BOTTLE. PO PRN (07:15)
[2017-02-25] MEDS ORDERED: AMOX500T PO (07:18)
[2017-02-25] MEDS ORDERED: AMOXICILLIN 250 MG CAPSULE PO ONE (07:30)
[2017-02-25] MEDS ORDERED: diphenhydrAMINE ORAL ELIXIR 12.5 MG/5 ML ML PO ONE (07:50)
[2017-02-25] MEDS ORDERED: KETOROLAC 60 MG/2 ML VIAL. IM ONE (07:50)
[2017-02-25] MEDS ORDERED: LIDO:MAALOX 1:1 20 ML SINGLE DOSE PO ONE (07:50)
== END 2017-02-25 07:52 | disposition home or self-care (01) ==
LOC: ER 06:10
DX: N39.0 Urinary tract infection, site not specified (principal); Z76.5 Malingerer [conscious simulation]; G89.29 Other chronic pain; F17.210 Nicotine dependence, cigarettes, uncomplicated; K21.9 Gastro-esophageal reflux disease without esophagitis; Z87.11 Personal history of peptic ulcer disease; Z88.6 Allergy status to analgesic agent; Z88.8 Allergy status to other drugs, medicaments and biological substances
CPT/HCPCS: 36415; 80307; 81001; 96372; 99284; J1885; G0479

== ENCOUNTER 2017-04-26 19:21 | Emergency (ER) | payer OTHER ==
[~2017-04-26] VITALS: Ht 154.9 cm; Wt 49.9 kg
[~2017-04-26 19:21] MED LIST changes: +AMOX500T PO; -NAPR500T3 PO; +NAPR500T4 PO
[2017-04-26 19:25] VITALS: BP 104/76
[2017-04-26] MEDS ORDERED: ONDANSETRON PF 4 MG/2 ML VIAL. IV ONE (20:00)
[2017-04-26] MEDS ORDERED: IV NORMAL SALINE 1,000ML 1,000 ML IV ONE (20:00)
[2017-04-26] MEDS ORDERED: LIDO:MAALOX 1:1 20 ML SINGLE DOSE PO ONE (20:00)
[2017-04-26 20:14] LABS: BACTERIA,URINE FEW /HPF (0-FEW); BILIRUBIN,URINE NEG (NEG); CLARITY,URINE CLEAR; COLOR,URINE STRAW; GLUCOSE,URINE NEG (NEG); NITRITE,URINE NEG (NEG); RBC,URINE 0 /HPF (0-2); SQUAMOUS EPITHELIAL CELL,UR OCC /LPF; UROBILINOGEN,URINE 0.2 mg/dL (0.2 mg/dL); WBC,URINE OCC /HPF (0-4)
[2017-04-26 20:38] LABS: ALBUMIN 3.7 g/dL (3.4-5.0); ALBUMIN/GLOBULIN RATIO 1.1 (1.0-1.7); CREATININE 0.8 mg/dL (0.6-1.0); GFR 97.1; POTASSIUM 3.6 mmol/L (3.5-5.1); TOTAL BILIRUBIN 0.3 mg/dL (0.2-1.0); TOTAL PROTEIN 7.1 g/dL (6.4-8.2)
[2017-04-26] MEDS ORDERED: OMEP20TA63 PO (21:00)
--- NOTE | 2017-04-26 21:00 | PHYS DOC ---
Past History Past Medical History: Anxiety, Depression, UTI Additional Past Medical Histor: drug-seeking behavior Past Surgical History: , Hysterectomy Smoking: Cigarettes, Less than 1pk/day Alcohol Use: Occasionally Drug Use: None Adult General Chief Complaint Chief Complaint: ABDOMINAL PAIN HPI HPI Patient is a 37-year-old female who presents here today complaining of midepigastric abdominal pain. Patient reports she saw her GI doctor earlier today and he told her he thought that she may have appendicitis and that if the pain worsened that she should go the ED. Patient reports that she's had midepigastric discomfort for several months now. Patient denies any fevers shakes chills nausea vomiting or diarrhea. Patient reports she been eating and drinking well. Patient's last by mouth intake was approximately one hour prior to arrival. Patient has a dysuria frequency or urgency. Patient has any melena or bright red blood per rectum. Patient reports that the pain has been intermittent over the last several months and she's been evaluated by Dr. Ceballos who is her GI doctor and he has not been able to determine the exact cause of the discomfort. Review of systems: Constitutional: Denies fever or chills Eyes: Denies change in visual acuity, redness, or eye pain HENT: Denies nasal congestion or sore throat All other systems were reviewed and found to be within normal limits, except as documented in this note. Physical exam Constitutional: Well developed, well nourished, no acute distress, non-toxic appearance. HENT: Normocephalic, atraumatic, bilateral external ears normal, oropharynx moist, no oral exudates, nose normal. Eyes: PERRLA, EOMI, conjunctiva normal, no discharge. Neck: Normal range of motion, no tenderness, supple, no stridor. Cardiovascular:Heart rate regular rhythm, Lungs & Thorax: Bilateral breath sounds clear to auscultation Abdomen: Nondistended. Skin: Warm, dry, no erythema, no rash. Back: No tenderness, no CVA tenderness. Extremities: No tenderness, no cyanosis, no clubbing, ROM intact, no edema. Neurologic: Alert and oriented X 3, normal motor function, normal sensory function, no focal deficits noted. Psychologic: Affect normal, judgement normal, mood normal. ER physical exam is significant for: Abdomen is soft nondistended no rebound or guarding. Patient does not present with any signs or symptoms O be consistent with an acute surgical abdomen. Patient has no tenderness to palpation at McBurney's point. Patient has no Bella sign. Patient is nontoxic appearing and is sleeping comfortably in bed. Reevaluation after medications. Patient reports that she feels much better after the GI cocktail. Patient had labs drawn here in the ED including a CMP, lipase, UA. His labs were unremarkable. Patient's abdominal exam is not consistent with an acute surgical abdomen. Assessment and plan: 1. 29-year-old female with chronic abdominal pain of unclear etiology. Patient' s ER workup today did not reveal any clear source for abdominal discomfort however her exam is not consistent with an acute surgical abdomen at this time. Patient will need to resume her workup with her primary care doctor her GI doctor to further evaluate the cause of this discomfort. Patient will be sent home with instructions to increase her Prilosec to twice a day and to take Maalox as needed. Current Medications Current Medications Current Medications Medications (Trade) Dose Ordered Sig/Thang Start Time Stop Time Status Last Admin Dose Admin Multi-Ingredient Mouthwash/Gargle (Gi Cocktail) 20 ml 1X ONCE 04/26/17 20:00 04/26/17 20:01 DC 04/26/17 20:04 20 ML Ondansetron HCl (Zofran) 4 mg 1X ONCE 04/26/17 20:00 04/26/17 20:01 DC 04/26/17 20:04 4 MG Sodium Chloride 1,000 ml @ 1,000 mls/hr 1X ONCE 04/26/17 20:00 04/26/17 20:59 04/26/17 20:04 1,000 MLS/HR Allergies Allergies Allergies Coded Allergies Type Severity Reaction Last Updated Verified ibuprofen Allergy Unknown 10/23/16 Yes tramadol Allergy Unknown 10/23/16 Yes lorazepam Adverse Reaction Intermediate 11/27/16 Yes Current Patient Data Lab Results Laboratory Tests Test 04/26/17 19:40 Urine Collection Type Unknown Urine Color Straw Urine Clarity Clear Urine pH 6.5 Urine Specific [place] <=1.005 Urine Protein Neg (NEG-TRACE) Urine Glucose (UA) Neg mg/dL (NEG) Urine Ketones (Stick) Neg mg/dL (NEG) Urine Blood Neg (NEG) Urine Nitrite Neg (NEG) Urine Bilirubin Neg (NEG) Urine Urobilinogen Dipstick 0.2 mg/dL (0.2 mg/dL) Urine Leukocyte Esterase Neg (NEG) Urine RBC 0 /HPF (0-2) Urine WBC Occ /HPF (0-4) Urine Squamous Epithelial Cells Occ /LPF Urine Bacteria Few /HPF (0-FEW) Sodium Level 143 mmol/L (136-145) Potassium Level 3.6 mmol/L (3.5-5.1) Chloride Level 106 mmol/L (98-107) Carbon Dioxide Level 28 mmol/L (21-32) Anion Gap 9 (6-14) Blood Urea Nitrogen 3 mg/dL (7-20) L Creatinine 0.8 mg/dL (0.6-1.0) Estimated GFR (Cockcroft-Gault) 97.1 BUN/Creatinine Ratio 4 (6-20) L Glucose Level 92 mg/dL (70-99) Calcium Level 9.0 mg/dL (8.5-10.1) Total Bilirubin 0.3 mg/dL (0.2-1.0) Aspartate Amino Transferase (AST) 11 U/L (15-37) L Alanine Aminotransferase (ALT) 19 U/L (14-59) Alkaline Phosphatase 67 U/L (46-116) Total Protein 7.1 g/dL (6.4-8.2) Albumin 3.7 g/dL (3.4-5.0) Albumin/Globulin Ratio 1.1 (1.0-1.7) Lipase 101 U/L (73-393) EKG EKG [] Radiology/Procedures Radiology/Procedures [] Course & Med Decision Making Course & Med Decision Making Pertinent Labs and Imaging studies reviewed. (See chart for details) [] Dragon Disclaimer Dragon Disclaimer This electronic medical record was generated, in whole or in part, using a voice recognition dictation system. Departure Departure: Impression: Primary Impression: Pain in the abdomen Additional Impression: Gastritis Disposition: 01 HOME, SELF-CARE Condition: IMPROVED Referrals: SARAH NEGRON (PCP) Patient Instructions: Abdominal Pain Scripts Omeprazole Magnesium (PRILOSEC OTC) 20 Mg Tablet.dr 1 TAB PO BID, #60 TAB 3 Refills Prov: NIYAH KOO MD 04/26/17 Problem Qualifiers NIYAH KOO MD Apr 26, 2017 21:00
== END 2017-04-26 21:40 | disposition home or self-care (01) ==
LOC: ER 19:21
DX: K29.70 Gastritis, unspecified, without bleeding (principal); F17.210 Nicotine dependence, cigarettes, uncomplicated; Z87.440 Personal history of urinary (tract) infections; Z98.890 Other specified postprocedural states; Z90.710 Acquired absence of both cervix and uterus; Z88.6 Allergy status to analgesic agent; Z88.8 Allergy status to other drugs, medicaments and biological substances
CPT/HCPCS: 36415; 80053; 81001; 83690; 96361; 96374; 99284; J2405; J7030

== ENCOUNTER 2017-06-27 17:40 | Emergency (ER) | payer OTHER ==
[~2017-06-27] VITALS: Ht 154.9 cm; Wt 54.5 kg
[~2017-06-27 17:40] MED LIST changes: -IBUP200T43 PO; +IBUP200T44 PO; +OMEP20TA63 PO
[2017-06-27] MEDS ORDERED: LIDO:MAALOX 1:1 20 ML SINGLE DOSE PO ONE (18:30)
[2017-06-27 18:51] LABS: BASO # 0.1 x10^3/uL (0.0-0.2); BASO % 1 % (0-3); EOS # 0.2 x10^3/uL (0.0-0.7); EOS % 3 % (0-3); HEMATOCRIT 36.7 % (36.0-47.0); HEMOGLOBIN 12.6 g/dL (12.0-15.5); LYMPH # 3.7 x10^3/uL (1.0-4.8); LYMPH % 51 % (24-48); MEAN CORPUSCULAR HEMOGLOBIN 33 pg (25-35); MEAN CORPUSCULAR HGB CONC 34 g/dL (31-37); MEAN CORPUSCULAR VOLUME 96 fL (79-100); MONO # 0.4 x10^3/uL (0.0-1.1); MONO % 5 % (0-9); NEUT # 2.9 x10^3uL (1.8-7.7); NEUT % 40 % (31-73); PLATELET COUNT 270 x10^3/uL (140-400); RED BLOOD COUNT 3.83 x10^6/uL (3.50-5.40); RED CELL DISTRIBUTION WIDTH 13.9 % (11.5-14.5); WHITE BLOOD COUNT 7.2 x10^3/uL (4.0-11.0)
[2017-06-27 18:59] LABS: ALBUMIN 3.8 g/dL (3.4-5.0); ALBUMIN/GLOBULIN RATIO 1.1 (1.0-1.7); CALCIUM 9.2 mg/dL (8.5-10.1); CREATININE 0.8 mg/dL (0.6-1.0); GFR 97.1; TOTAL BILIRUBIN 0.3 mg/dL (0.2-1.0); TOTAL PROTEIN 7.2 g/dL (6.4-8.2)
[2017-06-27 19:03] VITALS: BP 115/74
[2017-06-27] MEDS ORDERED: RANI150T6 PO (19:19)
--- NOTE | 2017-06-27 19:25 | PHYS DOC ---
General Chief Complaint: ABDOMINAL PAIN Stated Complaint: ABDOMINAL PAIN Time Seen by MD: 18:08 Source: patient, old records Exam Limitations: no limitations Problems: History of Present Illness Initial Comments Patient is 37-year-old female who comes to the ED complaining of abdominal pain. Patient states that she's having an exacerbation of her epigastric gastritis pain. She states that it is identical to her prior episodes, she denies nausea vomiting coffee ground emesis bloody or dark tarry stools. Pain is worse after eating she denies any unexplained weight loss. She follows with GI doctor Tucker and has an upcoming gallbladder study pending. On arrival I gave the patient a GI cocktail and ordered some screening labs including CBC CMP and lipase. Her pain resolved completely with GI cocktail, she states that the omeprazole hasn't worked and once more Zantac. I educated her on onset of the effectiveness of PPIs and that they were maintenance medications not rescue. Vital signs were stable no other symptoms. Timing/Duration: 1-3 hours Severity: severe Modifying Factors: worse with eating, improves with medication Associated Symptoms: other Allergies: Coded Allergies: ibuprofen (Verified Allergy, Unknown, 10/23/16) tramadol (Verified Allergy, Unknown, 10/23/16) lorazepam (Verified Adverse Reaction, Intermediate, 11/27/16) Past Medical History Medical History: GERD, peptic ulcer disease, seizure, other Surgical History: other Family History Significant Family History: no pertinent family hx Review of Systems Constitutional: denies chills, denies diaphoresis, denies fever, denies malaise Respiratory: denies cough, denies shortness of breath Cardiovascular: denies chest pain, denies palpitations Gastrointestinal: see HPI Genitourinary: denies dysuria, denies frequency, denies hematuria Musculoskeletal: denies back pain, denies joint swelling, denies neck pain Psychiatric/Neurological: denies headache, denies numbness, denies paresthesia Hematologic/Lymphatic: denies easy bruising Physical Exam General Appearance: no apparent distress Ear, Nose, Throat: hearing grossly normal, normal ENT inspection Neck: non-tender, supple Respiratory: normal breath sounds, no respiratory distress Gastrointestinal: normal bowel sounds, non tender, soft Back: no CVA tenderness, no vertebral tenderness Extremities: non-tender, normal inspection 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 Symptoms resolved completely with GI cocktail. Patient educated that PPIs take several weeks to start working, she'll be covered with Zantac in the interim. She has plenty of omeprazole at home, I discussed signs and symptoms to monitor as well as indications for urgent return to the department. I discussed dietary and lifestyle modifications as well as smoking cessation. I discussed taking medications as prescribed she agrees to follow-up with specialist as scheduled in expressed agreement and understanding with the treatment plan. Departure Time of Disposition: 19:23 Disposition: 01 HOME, SELF-CARE Diagnosis: GERD/gastritis, tobaccoism Condition: IMPROVED Patient Instructions: Diet for Gastroesophageal Reflux Disease, Adult, Easy-to- Read Additional Instructions: Please review the patient education materials given by ED staff. Stop smoking, this will be one of the biggest ways to control your epigastric pain symptoms seek medical assistance if necessary. No eating within 4 hours of bedtime, elevate the head of your bed if necessary to control symptoms. Now that you been educated about your home omeprazole, take it as prescribed starting today. Prescription: Zantac take as directed Prescription: GI cocktail 120 MLs total for severe breakthrough symptoms. Follow-up for your gallbladder study this week as scheduled. Follow-up with Dr. Ceballos as scheduled. Return to ED with new or changing symptoms. MJ ALVAREZ DO Jun 27, 2017 19:25
== END 2017-06-27 19:32 | disposition home or self-care (01) ==
LOC: ER 17:40
DX: R10.13 Epigastric pain (principal); K21.9 Gastro-esophageal reflux disease without esophagitis; Z87.11 Personal history of peptic ulcer disease; Z88.6 Allergy status to analgesic agent; Z88.8 Allergy status to other drugs, medicaments and biological substances
CPT/HCPCS: 36415; 80053; 83690; 85025; 99284

== ENCOUNTER 2017-10-10 18:42 | Emergency (ER) | payer OTHER ==
[~2017-10-10] VITALS: Ht 154.9 cm; Wt 49.0 kg
[~2017-10-10 18:42] MED LIST changes: +NAPR-514 PO; -NAPR500T4 PO; +RANI150T21 PO
--- NOTE | 2017-10-10 18:45 | ED.ADGEN ---
Past History Past Medical History: Anxiety, Depression, UTI, Other Additional Past Medical Histor: drug-seeking behavior Past Surgical History: , Hysterectomy Smoking: Cigarettes, Less than 1pk/day Alcohol Use: Occasionally Drug Use: None Adult General Chief Complaint Chief Complaint " .. I ve had abd. pain for past couple years.. I take milk of magnesium and oxy.. for it.." "..I am out of my pain pills.." HPI HPI Patient is a 37 year old female who presents with above hx and complaints of abdomen pain. Pt. had this pain for past two years. Pt. denies any trauma, travel , ill contracts or bad food. Pt. states she has not been able to sleep all day. Pt. follows with Dr. Goss. Pt. has been advised to follow with the pain clinic. Review of Systems Review of Systems Constitutional: Denies fever or chills [] Eyes: Denies change in visual acuity, redness, or eye pain [] HENT: Denies nasal congestion or sore throat [] Respiratory: Denies cough or shortness of breath [] Cardiovascular: No additional information not addressed in HPI [] GI: complaints of abdominal pain, nausea. Denies, vomiting, bloody stools or diarrhea [] : Denies dysuria or hematuria [] Musculoskeletal: Denies back pain or joint pain [] Integument: Denies rash or skin lesions [] Neurologic: Denies headache, focal weakness or sensory changes [] Endocrine: Denies polyuria or polydipsia [] All other systems were reviewed and found to be within normal limits, except as documented in this note. Family History Family History Non-contributory Current Medications Current Medications Current Medications Medications (Trade) Dose Ordered Sig/Thang Start Time Stop Time Status Last Admin Dose Admin Acetaminophen (Tylenol) 1,000 mg 1X ONCE 10/10/17 21:45 10/10/17 21:46 DC 10/10/17 21:45 1,000 MG Lactated Ringer's 1,000 ml @ 1,000 mls/hr Q1H 10/10/17 19:00 10/10/17 19:59 DC 10/10/17 19:38 1,000 MLS/HR Magnesium Citrate (Citroma) 296 ml 1X ONCE 10/10/17 20:45 10/10/17 20:47 DC 10/10/17 20:53 296 ML Ondansetron HCl (Zofran) 8 mg 1X ONCE 10/10/17 19:00 10/10/17 19:12 DC 10/10/17 19:40 8 MG Allergies Allergies Allergies Coded Allergies Type Severity Reaction Last Updated Verified ibuprofen Allergy Unknown 10/23/16 Yes tramadol Allergy Unknown 10/23/16 Yes lorazepam Adverse Reaction Intermediate 11/27/16 Yes Physical Exam Physical Exam Constitutional: , no acute distress, non-toxic appearance. [] HENT: Normocephalic, atraumatic, bilateral external ears normal, oropharynx moist, no oral exudates, nose normal. [] Eyes: PERRLA, EOMI, conjunctiva normal, no discharge. [] Neck: Normal range of motion, no tenderness, supple, no stridor. [] Cardiovascular:Heart rate regular rhythm, no murmur [] Lungs & Thorax: Bilateral breath sounds equal at apex with scattered wheezes on auscultation [] Abdomen: Bowel sounds normal, soft, generalized tenderness, no masses, no pulsatile masses. Distended. No rebound- with distraction. Rectal no gross blood. Hard Stool. Old surgery scars. Skin: Warm, dry, no erythema, no rash. [] Back: No tenderness, no CVA tenderness. [] Extremities: No tenderness, no cyanosis, no clubbing, ROM intact, no edema. [] Neurologic: Alert and oriented X 3, normal motor function, normal sensory function, no focal deficits noted. [] Psychologic: Affect Anxious, judgement normal, mood normal. [] Current Patient Data Vital Signs Vital Signs Date Time Temp Pulse Resp B/P (MAP) Pulse Ox O2 Delivery O2 Flow Rate FiO2 10/10/17 20:20 77 16 117/71 (86) 99 Room Air 10/10/17 18:52 98.7 Lab Results Laboratory Tests Test 10/10/17 19:10 10/10/17 19:12 White Blood Count 7.1 x10^3/uL (4.0-11.0) Red Blood Count 4.42 x10^6/uL (3.50-5.40) Hemoglobin 14.4 g/dL (12.0-15.5) Hematocrit 42.8 % (36.0-47.0) Mean Corpuscular Volume 97 fL (79-100) Mean Corpuscular Hemoglobin 33 pg (25-35) Mean Corpuscular Hemoglobin Concent 34 g/dL (31-37) Red Cell Distribution Width 13.9 % (11.5-14.5) Platelet Count 337 x10^3/uL (140-400) Neutrophils (%) (Auto) 39 % (31-73) Lymphocytes (%) (Auto) 51 % (24-48) H Monocytes (%) (Auto) 8 % (0-9) Eosinophils (%) (Auto) 2 % (0-3) Basophils (%) (Auto) 1 % (0-3) Neutrophils # (Auto) 2.8 x10^3uL (1.8-7.7) Lymphocytes # (Auto) 3.6 x10^3/uL (1.0-4.8) Monocytes # (Auto) 0.6 x10^3/uL (0.0-1.1) Eosinophils # (Auto) 0.1 x10^3/uL (0.0-0.7) Basophils # (Auto) 0.0 x10^3/uL (0.0-0.2) Prothrombin Time 10.6 SEC (9.4-11.4) Prothrombin Time INR 1.0 (0.9-1.1) PTT 27 SEC (23-33) Sodium Level Pending Potassium Level Pending Chloride Level Pending Carbon Dioxide Level Pending Anion Gap Pending Blood Urea Nitrogen Pending Creatinine Pending Estimated GFR (Cockcroft-Gault) Pending Glucose Level Pending Calcium Level Pending Total Bilirubin 0.5 mg/dL (0.2-1.0) Direct Bilirubin 0.0 mg/dL (0.0-0.2) Aspartate Amino Transferase (AST) 39 U/L (15-37) H Alanine Aminotransferase (ALT) 42 U/L (14-59) Alkaline Phosphatase 71 U/L (46-116) Creatine Kinase Pending Troponin I Quantitative < 0.012 ng/mL (0-0.055) Total Protein 7.8 g/dL (6.4-8.2) Albumin 4.6 g/dL (3.4-5.0) Lipase 44 U/L (73-393) L Urine Collection Type Unknown Urine Color Yellow Urine Clarity Clear Urine pH 8.5 Urine Specific [place] 1.020 Urine Protein Neg (NEG-TRACE) Urine Glucose (UA) Neg mg/dL (NEG) Urine Ketones (Stick) Neg mg/dL (NEG) Urine Blood Neg (NEG) Urine Nitrite Neg (NEG) Urine Bilirubin Neg (NEG) Urine Urobilinogen Dipstick 0.2 mg/dL (0.2 mg/dL) Urine Leukocyte Esterase Neg (NEG) Urine RBC 1-2 /HPF (0-2) Urine WBC Occ /HPF (0-4) Urine Squamous Epithelial Cells Mod /LPF Urine Bacteria 0 /HPF (0-FEW) Urine Mucus Slight /LPF EKG EKG My interpretation EKG shows a sinus rate of 66 bpm. Does have a P-wave. Somewhat low voltage.[] Radiology/Procedures Radiology/Procedures My interpretation of CT abdomen film shows no obvious free air in the diaphragm. No obvious findings of bowel obstruction. Does have increased stool. Nonspecific bowel gas pattern.[] Pulmonary portion film shows no obvious acute cardiopulmonary changes Course & Med Decision Making Course & Med Decision Making Pertinent Labs and Imaging studies reviewed. (See chart for details) Still awaiting electrolytes at 2100 hrs. Patient status clear fluid diet only. No solid or milk products. Expect some diarrhea with the mag citrate. Take Tylenol for pain. Vice patient narcotic medications must be filled by her primary. Consider follow-up at pain clinic. For her chronic pain [] Final Impression Final Impression 1. Abd. Pain[]- history of chronic abdomen pain 2. Constipation 3. Appears to have Narcotic seeking behaviors Problems: Dragon Disclaimer Dragon Disclaimer This electronic medical record was generated, in whole or in part, using a voice recognition dictation system. DONYA CARMONA MD October 10, 2017 18:45
[2017-10-10] MEDS ORDERED: IV RINGERS SOLUTION,LACTATED 1,000 ML IV SCH (19:00)
[2017-10-10] MEDS ORDERED: ONDANSETRON PF 4 MG/2 ML VIAL. IV ONE (19:00)
--- NOTE | 2017-10-10 19:12 | EKG ---
[address] [address] Test Date: 2017-10-10 Test Time: 19:07:12 Pat Name: CIRA SINGH Department: Room: Gender: F [employer] Assistant: CLAY : 1980 Requested By: DONYA CARMONA Order Number: [id number] Reading MD: George Waite MD Measurements Intervals [place] Rate: 66 P: NE: QRS: 52 QRSD: 84 T: 28 QT: 436 QTc: 459 Interpretive Statements SR NON-SPECIFIC ST/T CHANGES Electronically Signed On 10-11-2017 13:13:35 CDT by George Waite MD
[2017-10-10 19:54] LABS: BASO % 1 % (0-3); EOS # 0.1 x10^3/uL (0.0-0.7); EOS % 2 % (0-3); HEMATOCRIT 42.8 % (36.0-47.0); HEMOGLOBIN 14.4 g/dL (12.0-15.5); LYMPH # 3.6 x10^3/uL (1.0-4.8); LYMPH % 51 % (24-48); MEAN CORPUSCULAR HEMOGLOBIN 33 pg (25-35); MEAN CORPUSCULAR HGB CONC 34 g/dL (31-37); MEAN CORPUSCULAR VOLUME 97 fL (79-100); MONO # 0.6 x10^3/uL (0.0-1.1); MONO % 8 % (0-9); NEUT # 2.8 x10^3uL (1.8-7.7); NEUT % 39 % (31-73); PLATELET COUNT 337 x10^3/uL (140-400); RED BLOOD COUNT 4.42 x10^6/uL (3.50-5.40); RED CELL DISTRIBUTION WIDTH 13.9 % (11.5-14.5); WHITE BLOOD COUNT 7.1 x10^3/uL (4.0-11.0)
[2017-10-10 20:04] LABS: BILIRUBIN,URINE NEG (NEG); CLARITY,URINE CLEAR; COLOR,URINE YELLOW; GLUCOSE,URINE NEG (NEG); UROBILINOGEN,URINE 0.2 mg/dL (0.2 mg/dL)
[2017-10-10 20:05] LABS: BACTERIA,URINE 0 /HPF (0-FEW); NITRITE,URINE NEG (NEG); SQUAMOUS EPITHELIAL CELL,UR MOD /LPF; WBC,URINE OCC /HPF (0-4)
[2017-10-10 20:20] VITALS: BP 117/71
[2017-10-10] MEDS ORDERED: MAGNESIUM CITRATE 296 ML SOLUTION. PO ONE (20:45)
[2017-10-10 21:24] LABS: ALBUMIN 4.6 g/dL (3.4-5.0)
[2017-10-10 21:25] LABS: TOTAL BILIRUBIN 0.5 mg/dL (0.2-1.0); TOTAL PROTEIN 7.8 g/dL (6.4-8.2)
[2017-10-10] MEDS ORDERED: ACETAMINOPHEN 500 MG TABLET PO ONE (21:45)
[2017-10-10 23:21] LABS: CALCIUM 9.5 mg/dL (8.5-10.1); GFR 75.1
[2017-10-11 02:03] LABS: AMPHETAMINE/METHAMPHETAMINE NEG (NEG); BARBITURATES NEG (NEG); BENZODIAZEPINES POS (NEG); CANNABINOIDS NEG (NEG); COCAINE NEG (NEG); METHADONE NEG (NEG); OPIATES POS (NEG); PHENCYCLIDINE NEG (NEG)
--- NOTE | 2017-10-11 09:35 | RAD ---
EXAM: Abdomen acute complete. HISTORY: Pain. COMPARISON: None. FINDINGS: A frontal view of the chest and frontal upright and supine views of the abdomen are obtained. There is no infiltrate, effusion or pneumothorax. The heart is normal in size. There is air within nondistended loops of bowel throughout the abdomen. There is no transition point to suggest obstruction. There is no free air. IMPRESSION: 1. No acute pulmonary finding. 2. Nonobstructive bowel gas pattern. Electronically signed by: Sameera Solis MD (10/11/2017 9:32 AM) [id number]
== END 2017-10-10 22:03 | disposition home or self-care (01) ==
LOC: ER 18:42
DX: K59.00 Constipation, unspecified (principal); G89.29 Other chronic pain; Z76.5 Malingerer [conscious simulation]; F41.9 Anxiety disorder, unspecified; F32.9 Major depressive disorder, single episode, unspecified; F17.210 Nicotine dependence, cigarettes, uncomplicated; Z87.440 Personal history of urinary (tract) infections; Z98.890 Other specified postprocedural states; Z90.710 Acquired absence of both cervix and uterus; Z88.6 Allergy status to analgesic agent; Z88.8 Allergy status to other drugs, medicaments and biological substances
CPT/HCPCS: 36415; 74022; 80048; 80076; 80307; 81001; 82550; 83690; 84484; 85025; 85610; 85730; 93005; 96374; 99285; J2405; J7120; G0479

== ENCOUNTER 2017-11-15 21:51 | Emergency (ER) | payer OTHER ==
[2017-11-15 21:51] VITALS: BP 104/73
--- NOTE | 2017-11-15 23:01 | PHYS DOC ---
COURSE I signed myself to see this patient in the emergency Department, however I was informed as I was going to the room at this patient decided to leave without being seen. No evaluation was made on this patient and no treatments were rendered. EDUARDO FLORES MD Nov 15, 2017 23:01
== END 2017-11-15 22:45 | disposition left against medical advice (07) ==
LOC: ER 21:51
DX: M79.671 Pain in right foot (principal); Z53.21 Procedure and treatment not carried out due to patient leaving prior to being seen by health care provider

== ENCOUNTER 2018-01-10 11:52 | Emergency (ER) | payer OTHER ==
[~2018-01-10] VITALS: Ht 154.9 cm; Wt 50.8 kg
[2018-01-10 11:52] VITALS: BP 107/74
[~2018-01-10 11:52] MED LIST changes: -CLON1TAB3 PO; +CLON1TAB4 PO
--- NOTE | 2018-01-10 12:34 | PHYS DOC ---
Past History Past Medical History: Anxiety, Bipolar Additional Past Medical Histor: drug-seeking behavior Past Surgical History: , Hysterectomy Smoking: Cigarettes, Less than 1pk/day Alcohol Use: Occasionally Drug Use: None Adult General Chief Complaint Chief Complaint: [facility]BDOM[facility]AL [facility]IN [facility] HPI 37-year-old female patient with history of type blood disorder and chronic abdominal pain for several years states she ran out of [place] and Codeine for one week and her abdominal pain getting worse. Patient states her pain is generalized and complaining of nausea and unable to eat for couple days. Patient rated her pain 9/10 and denies fever and chills, diarrhea and constipation, urinary symptoms, chest pain and shortness of breath. Patient has had frequent emergency room visits and drug-seeking behavior. Review of Systems Review of Systems Constitutional: Denies fever or chills [] Eyes: Denies change in visual acuity, redness, or eye pain [] HENT: Denies nasal congestion or sore throat [] Respiratory: Denies cough or shortness of breath [] Cardiovascular: No additional information not addressed in HPI [] GI: Reports abdominal pain, nausea, denies vomiting, bloody stools or diarrhea [ ] : Denies dysuria or hematuria [] Musculoskeletal: Denies back pain or joint pain [] Integument: Denies rash or skin lesions [] Neurologic: Denies headache, focal weakness or sensory changes [] Endocrine: Denies polyuria or polydipsia [] All other systems were reviewed and found to be within normal limits, except as documented in this note. Current Medications Current Medications Current Medications Medications (Trade) Dose Ordered Sig/Thang Start Time Stop Time Status Last Admin Dose Admin Diphenhydramine HCl (Benadryl) 25 mg 1X ONCE 01/10/18 12:40 01/10/18 12:41 01/10/18 12:26 25 MG Ondansetron HCl (Zofran Odt) 4 mg 1X ONCE 01/10/18 12:40 01/10/18 12:41 01/10/18 12:27 4 MG Allergies Allergies Allergies Coded Allergies Type Severity Reaction Last Updated Verified ibuprofen Allergy Unknown 10/23/16 Yes tramadol Allergy Unknown 10/23/16 Yes lorazepam Adverse Reaction Intermediate 11/27/16 Yes Physical Exam Physical Exam Constitutional: Well developed, well nourished, no acute distress, non-toxic appearance. [] HENT: Normocephalic, atraumatic, bilateral external ears normal, oropharynx moist, no oral exudates, nose normal. [] Eyes: PERRLA, EOMI, conjunctiva normal, no discharge. [] Neck: Normal range of motion, no tenderness, supple, no stridor. [] Cardiovascular:Heart rate regular rhythm, no murmur [] Lungs & Thorax: Bilateral breath sounds clear to auscultation [] Abdomen: Bowel sounds normal, soft, no tenderness, no masses, no pulsatile masses. [] Skin: Warm, dry, no erythema, no rash. [] Back: No tenderness, no CVA tenderness. [] Extremities: No tenderness, no cyanosis, no clubbing, ROM intact, no edema. [] Neurologic: Alert and oriented X 3, normal motor function, normal sensory function, no focal deficits noted. [] Psychologic: Affect normal, judgement normal, mood normal. [] Current Patient Data Vital Signs Vital Signs Date Time Temp Pulse Resp B/P (MAP) Pulse Ox O2 Delivery O2 Flow Rate FiO2 01/10/18 11:52 97.9 72 18 Room Air EKG EKG [] Radiology/Procedures Radiology/Procedures [] Course & Med Decision Making Course & Med Decision Making Evaluation of patient in ER showed 37-year-old female patient presented to ER for refill of [place] and codeine and ranitidine for chronic abdominal pain. Informed that she cannot have narcotics pain medication refill in ER and is to follow with her primary care physician. Patient treated with Zofran and Benadryl. Patient refused to give urine sample or having blood tests and sign AMA after taking medication. Dragon Disclaimer Dragon Disclaimer This electronic medical record was generated, in whole or in part, using a voice recognition dictation system. Departure Departure: Impression: Primary Impression: Left against medical advice Additional Impressions: Drug-seeking behavior Chronic abdominal pain Tobacco abuse Disposition: 07 AGAINST MEDICAL ADVICE (at 12:30) Condition: STABLE Referrals: SARAH NEGRON (PCP) Problem Qualifiers RAFAEL BALLESTEROS MD Jan 10, 2018 12:34
[2018-01-10] MEDS ORDERED: ONDANSETRON ODT 4 MG TAB.RAPDIS PO ONE (12:40)
[2018-01-10] MEDS ORDERED: diphenhydrAMINE HCL 25 MG CAPSULE PO ONE (12:40)
== END 2018-01-10 12:30 | disposition left against medical advice (07) ==
LOC: ER 11:52
DX: Z76.5 Malingerer [conscious simulation] (principal); G89.29 Other chronic pain; R10.84 Generalized abdominal pain; R11.0 Nausea; F17.210 Nicotine dependence, cigarettes, uncomplicated; F41.9 Anxiety disorder, unspecified; F31.9 Bipolar disorder, unspecified; Z88.6 Allergy status to analgesic agent; Z88.8 Allergy status to other drugs, medicaments and biological substances
CPT/HCPCS: 99283; Q0162; Q0163

== ENCOUNTER 2018-01-20 13:10 | Emergency (ER) | payer OTHER ==
[~2018-01-20] VITALS: Ht 154.9 cm; Wt 49.0 kg
[2018-01-20 14:15] VITALS: BP 99/69
[2018-01-20] MEDS ORDERED: LIDO:MAALOX 1:1 20 ML SINGLE DOSE. PO ONE (14:15)
[2018-01-20] MEDS ORDERED: MELO15TA6 PO (14:19)
--- NOTE | 2018-01-20 14:20 | PHYS DOC ---
Past History Past Medical History: Anxiety, Bipolar Additional Past Medical Histor: drug-seeking behavior Past Surgical History: , Hysterectomy Smoking: Cigarettes, Less than 1pk/day Alcohol Use: Occasionally Drug Use: None Adult General Chief Complaint Chief Complaint: SORE THROAT HPI HPI 37-year-old male who presents with complaining of pain in her neck/thyroid and throat for the last 3 days as a constant pain and states her pain is related to her thyroid. Patient states she had left over of hydrocodone and took them few days ago but right now she asks for refill of hydrocodone prescription. Patient denies fever, cough and congestion, nausea and vomiting, shortness of breath. Patient has had frequent emergency room with the drug-seeking behavior. Review of Systems Review of Systems Constitutional: Denies fever or chills [] Eyes: Denies change in visual acuity, redness, or eye pain [] HENT: Denies nasal congestion, reports sore throat [] Respiratory: Denies cough or shortness of breath [] Cardiovascular: No additional information not addressed in HPI [] GI: Denies abdominal pain, nausea, vomiting, bloody stools or diarrhea [] : Denies dysuria or hematuria [] Musculoskeletal: Denies back pain or joint pain [] Integument: Denies rash or skin lesions [] Neurologic: Denies headache, focal weakness or sensory changes [] Endocrine: Denies polyuria or polydipsia [] All other systems were reviewed and found to be within normal limits, except as documented in this note. Allergies Allergies Allergies Coded Allergies Type Severity Reaction Last Updated Verified ibuprofen Allergy Unknown 10/23/16 Yes tramadol Allergy Unknown 10/23/16 Yes lorazepam Adverse Reaction Intermediate 11/27/16 Yes Physical Exam Physical Exam Constitutional: Well nourished, mild distress, non-toxic appearance. [] HENT: Normocephalic, atraumatic, bilateral external ears normal, oropharynx moist, no oral exudates, nose normal. [] Eyes: PERRLA, EOMI, conjunctiva normal, no discharge. [] Neck: Normal range of motion, no tenderness, supple, no stridor. [] Cardiovascular:Heart rate regular rhythm, no murmur [] Lungs & Thorax: Bilateral breath sounds clear to auscultation [] Skin: Warm, dry, no erythema, no rash. [] Back: No tenderness, no CVA tenderness. [] Extremities: No tenderness, no cyanosis, no clubbing, ROM intact, no edema. [] Neurologic: Alert and oriented X 3, normal motor function, normal sensory function, no focal deficits noted. [] Psychologic: Affect anxious, judgement normal, mood normal. [] EKG EKG [] Radiology/Procedures Radiology/Procedures [] Course & Med Decision Making Course & Med Decision Making Evaluation of patient in ER showed 37-year-old female patient presented to ER with complaining of pain in her thyroid and changed her complaint to sore throat and neck pain later on. She has had frequent emergency room visits and is drug-seeking behavior. Patient had unremarkable physical exam. Patient informed to follow-up with her primary care physician for refill of pain medication. Patient treated with GI cocktail and prescription for Mobic was given. Dragon Disclaimer Dragon Disclaimer This electronic medical record was generated, in whole or in part, using a voice recognition dictation system. Departure Departure: Impression: Primary Impression: Encounter for medication refill Additional Impressions: Tobacco abuse Throat pain in adult Disposition: 01 HOME, SELF-CARE ([email or web address]) Condition: STABLE Referrals: SARAH NEGRON (PCP) Patient Instructions: Chronic Pain, Medication Refill, Emergency Department Additional Instructions: Drink plenty of liquids Follow-up with your primary care physician in 2-3 days Return to ER if not getting better Scripts Meloxicam (MOBIC) 15 Mg Tablet 1 TAB PO DAILY, #15 TAB Prov: RAFAEL BALLESTEROS MD 01/20/18 Problem Qualifiers RAFAEL BALLESTEROS MD Jan 20, 2018 14:20
== END 2018-01-20 14:27 | disposition home or self-care (01) ==
LOC: ER 13:10
DX: R07.0 Pain in throat (principal); Z76.0 Encounter for issue of repeat prescription; F17.210 Nicotine dependence, cigarettes, uncomplicated; Z88.6 Allergy status to analgesic agent; Z88.8 Allergy status to other drugs, medicaments and biological substances
CPT/HCPCS: 99283

== ENCOUNTER 2018-01-22 08:38 | Emergency (ER) | payer OTHER ==
[~2018-01-22] VITALS: Ht 154.9 cm; Wt 49.0 kg
[~2018-01-22 08:38] MED LIST changes: +MELO15TA6 PO
[2018-01-22 08:39] VITALS: BP 120/81
--- NOTE | 2018-01-22 08:51 | PHYS DOC ---
Past History Past Medical History: Anxiety, Bipolar, Other Additional Past Medical Histor: drug-seeking behavior Past Surgical History: , Hysterectomy, Other Smoking: Cigarettes, Less than 1pk/day Alcohol Use: None Drug Use: None Adult General Chief Complaint Chief Complaint: ANXIETY/PANIC ATTACK [facility] HPI Patient is a 37 year old female who presents with Complaint of acute panic attack. Patient has a history of this as well as drug-seeking behavior and chronic pain syndrome. Patient states [facility] and is due to get more tomorrow but she can't find her prescription and developed a panic attack. Patient states that her uncle is getting ready to which she believes is the trigger for her current panic attack. Patient states that her son drove her here and she has no other acute complaints at this time. Review of Systems Review of Systems Constitutional: Denies fever or chills [] Eyes: Denies change in visual acuity, redness, or eye pain [] HENT: Denies nasal congestion or sore throat [] Respiratory: Denies cough or shortness of breath [] Cardiovascular: No additional information not addressed in HPI [] GI: Denies abdominal pain, nausea, vomiting, bloody stools or diarrhea [] : Denies dysuria or hematuria [] Musculoskeletal: Denies back pain or joint pain [] Integument: Denies rash or skin lesions [] Neurologic: Denies headache, focal weakness or sensory changes [] Endocrine: Denies polyuria or polydipsia [] All other systems were reviewed and found to be within normal limits, except as documented in this note. Allergies Allergies Allergies Coded Allergies Type Severity Reaction Last Updated Verified ibuprofen Allergy Unknown 10/23/16 Yes tramadol Allergy Unknown 10/23/16 Yes lorazepam Adverse Reaction Intermediate 11/27/16 Yes Physical Exam Physical Exam Constitutional: Well developed, well nourished, no acute distress, non-toxic appearance. [] HENT: Normocephalic, atraumatic, bilateral external ears normal, oropharynx moist, no oral exudates, nose normal. [] Eyes: PERRLA, EOMI, conjunctiva normal, no discharge. [] Neck: Normal range of motion, no tenderness, supple, no stridor. [] Cardiovascular:Heart rate regular rhythm, no murmur [] Lungs & Thorax: Bilateral breath sounds clear to auscultation [] Abdomen: Bowel sounds normal, soft, no tenderness, no masses, no pulsatile masses. [] Skin: Warm, dry, no erythema, no rash. [] Back: No tenderness, no CVA tenderness. [] Extremities: No tenderness, no cyanosis, no clubbing, ROM intact, no edema. [] Neurologic: Alert and oriented X 3, normal motor function, normal sensory function, no focal deficits noted. [] Psychologic: Affect normal, judgement normal, mood normal. [] EKG EKG [] Radiology/Procedures Radiology/Procedures [] Course & Med Decision Making Course & Med Decision Making Pertinent Labs and Imaging studies reviewed. (See chart for details) [] Dragon Disclaimer Dragon Disclaimer This electronic medical record was generated, in whole or in part, using a voice recognition dictation system. Departure Departure: Impression: Primary Impression: Panic attack Disposition: HOME, SELF-CARE Condition: IMPROVED Referrals: SARAH NEGRON (PCP) STU JOHNSON MD Jan 22, 2018 08:51
[2018-01-22] MEDS ORDERED: clonazePAM 1 MG TABLET PO ONE (09:15)
== END 2018-01-22 09:01 | disposition home or self-care (01) ==
LOC: ER 08:38
DX: F41.0 Panic disorder [episodic paroxysmal anxiety] (principal); F31.9 Bipolar disorder, unspecified; G89.4 Chronic pain syndrome; F17.210 Nicotine dependence, cigarettes, uncomplicated; Z76.5 Malingerer [conscious simulation]; Z88.6 Allergy status to analgesic agent; Z88.8 Allergy status to other drugs, medicaments and biological substances
CPT/HCPCS: 99284

== ENCOUNTER 2018-01-27 14:59 | Emergency (ER) | payer OTHER ==
[~2018-01-27] VITALS: Ht 154.9 cm; Wt 51.3 kg
[2018-01-27] MEDS ORDERED: LIDO:MAALOX 1:1 20 ML SINGLE DOSE. PO ONE (15:30)
[2018-01-27] MEDS ORDERED: IV NORMAL SALINE 1,000ML 1,000 ML IV ONE (15:30)
[2018-01-27] MEDS ORDERED: FAMOTIDINE 20 MG/2 ML VIAL IVP ONE (15:30)
[2018-01-27] MEDS ORDERED: PANTOPRAZOLE IV 40 MG VIAL. IVP ONE (15:30)
--- NOTE | 2018-01-27 15:34 | PHYS DOC ---
Past History Past Medical History: Anxiety, Bipolar, Other Additional Past Medical Histor: drug-seeking behavior Past Surgical History: , Hysterectomy, Other Smoking: Cigarettes, Less than 1pk/day Alcohol Use: Occasionally Drug Use: None Adult General Chief Complaint Chief Complaint: ABDOMINAL PAIN HPI HPI 37-year-old female presents with abdominal pain. Patient is well-known to the ED. She tells me that she has epigastric abdominal pain and nausea. This is probably more the last 2 days. She has a history of peptic ulcer disease and gastritis. She states that she is supposed to be on Maalox and lidocaine, a and out 1 week ago. She states Protonix in the past causing her abdominal pain. She also tells me she has been on [place] for this pain. The patient admits to some increased urinary frequency but denies dysuria. She denies fever or chills.[] Review of Systems Review of Systems Constitutional: Denies fever or chills [] Eyes: Denies change in visual acuity, redness, or eye pain [] HENT: Denies nasal congestion or sore throat [] Respiratory: Denies cough or shortness of breath [] Cardiovascular: No additional information not addressed in HPI [] GI: Epigastric abdominal pain and nausea[] : Denies dysuria or hematuria [] Musculoskeletal: Denies back pain or joint pain [] Integument: Denies rash or skin lesions [] Neurologic: Denies headache, focal weakness or sensory changes [] Endocrine: Denies polyuria or polydipsia [] All other systems were reviewed and found to be within normal limits, except as documented in this note. Current Medications Current Medications Current Medications Medications (Trade) Dose Ordered Sig/Thang Start Time Stop Time Status Last Admin Dose Admin Famotidine (Pepcid Vial) 20 mg 1X ONCE 01/27/18 15:30 01/27/18 15:31 Multi-Ingredient Mouthwash/Gargle (Gi Cocktail) 20 ml 1X ONCE 01/27/18 15:30 01/27/18 15:31 Pantoprazole Sodium (Protonix Vial) 40 mg 1X ONCE 01/27/18 15:30 01/27/18 15:31 Sodium Chloride 1,000 ml @ 1,000 mls/hr 1X ONCE 01/27/18 15:30 01/27/18 16:29 Allergies Allergies Allergies Coded Allergies Type Severity Reaction Last Updated Verified ibuprofen Allergy Unknown 10/23/16 Yes tramadol Allergy Unknown 10/23/16 Yes lorazepam Adverse Reaction Intermediate 11/27/16 Yes Physical Exam Physical Exam Constitutional: Well developed, well nourished, no acute distress, non-toxic appearance. [] HENT: Normocephalic, atraumatic, bilateral external ears normal, oropharynx moist, no oral exudates, nose normal. [] Eyes: PERRLA, EOMI, conjunctiva normal, no discharge. [] Neck: Normal range of motion, no tenderness, supple, no stridor. [] Cardiovascular:Heart rate regular rhythm, no murmur [] Lungs & Thorax: Bilateral breath sounds clear to auscultation [] Abdomen: Epigastric tenderness, no rebound, no guarding, soft.[] Skin: Warm, dry, no erythema, no rash. [] Back: No tenderness, no CVA tenderness. [] Extremities: No tenderness, no cyanosis, no clubbing, ROM intact, no edema. [] Neurologic: Alert and oriented X 3, normal motor function, normal sensory function, no focal deficits noted. [] Psychologic: Affect normal, judgement normal, mood normal. [] EKG EKG [] Radiology/Procedures Radiology/Procedures [] Course & Med Decision Making Course & Med Decision Making Pertinent Labs and Imaging studies reviewed. (See chart for details) The patient's labs are unremarkable. He treated her with Protonix, Pepcid, and a GI cocktail. This helped with the burning sensation, but she still had epigastric pain. I treated this with one [place] 5/325. This seemed to be effective for her. I stressed that she likely needed to be on a PPI to help control her reflux. I will prescribe 30 days of Nexium and give her 6 [place] 5/ 325 for breakthrough pain until the PPI fully takes effect. She is stable for discharge at this time. [] Dragon Disclaimer Dragon Disclaimer This electronic medical record was generated, in whole or in part, using a voice recognition dictation system. Departure Departure: Referrals: PCP,NO (PCP) Scripts Hydrocodone Bit/Acetaminophen (NORCO 5-325 TABLET) 1 Each Tablet 1 TAB PO PRN Q6HRS PRN for PAIN, #6 TAB 0 Refills Prov: STEPHANIA AGUILAR DO 01/27/18 Esomeprazole Magnesium (NEXIUM CAPSULE) 40 Mg Capsule.dr 1 CAP PO DAILY, #30 CAP 5 Refills Prov: STEPHANIA AGUILAR DO 01/27/18 STEPHANIA AGUILAR DO Jan 27, 2018 15:34
[2018-01-27 15:42] LABS: BASO # 0.1 x10^3/uL (0.0-0.2); BASO % 1 % (0-3); EOS # 0.1 x10^3/uL (0.0-0.7); EOS % 2 % (0-3); HEMOGLOBIN 12.9 g/dL (12.0-15.5); LYMPH % 42 % (24-48); MEAN CORPUSCULAR HEMOGLOBIN 33 pg (25-35); MEAN CORPUSCULAR HGB CONC 34 g/dL (31-37); MEAN CORPUSCULAR VOLUME 97 fL (79-100); MONO # 0.5 x10^3/uL (0.0-1.1); MONO % 7 % (0-9); NEUT # 3.5 x10^3uL (1.8-7.7); NEUT % 48 % (31-73); PLATELET COUNT 319 x10^3/uL (140-400); RED BLOOD COUNT 3.93 x10^6/uL (3.50-5.40); RED CELL DISTRIBUTION WIDTH 13.2 % (11.5-14.5); WHITE BLOOD COUNT 7.2 x10^3/uL (4.0-11.0)
[2018-01-27 15:53] VITALS: BP 113/77
[2018-01-27] MEDS ORDERED: ONDANSETRON PF 4 MG/2 ML VIAL. IV ONE (16:00)
[2018-01-27 16:01] LABS: ALBUMIN 3.9 g/dL (3.4-5.0); ALBUMIN/GLOBULIN RATIO 1.1 (1.0-1.7); CALCIUM 9.4 mg/dL (8.5-10.1); CREATININE 1.1 mg/dL (0.6-1.0); GFR 67.3; POTASSIUM 4.1 mmol/L (3.5-5.1); TOTAL BILIRUBIN 0.3 mg/dL (0.2-1.0); TOTAL PROTEIN 7.5 g/dL (6.4-8.2)
[2018-01-27] MEDS ORDERED: ESOM40CA PO (16:19)
[2018-01-27] MEDS ORDERED: HYDR-971 PO (16:23)
[2018-01-27] MEDS ORDERED: HYDROcodone/APAP 5/325MG 1 TAB TABLET PO ONE (16:30)
== END 2018-01-27 16:28 | disposition home or self-care (01) ==
LOC: ER 14:59
DX: R10.13 Epigastric pain (principal); R11.0 Nausea; F41.9 Anxiety disorder, unspecified; F31.9 Bipolar disorder, unspecified; F17.210 Nicotine dependence, cigarettes, uncomplicated; Z87.11 Personal history of peptic ulcer disease; Z76.5 Malingerer [conscious simulation]; Z98.890 Other specified postprocedural states; Z90.710 Acquired absence of both cervix and uterus; Z88.6 Allergy status to analgesic agent; Z88.8 Allergy status to other drugs, medicaments and biological substances
CPT/HCPCS: 36415; 80053; 83690; 85025; 96374; 96375; 99284; C9113; J2405; S0028; J7030

== ENCOUNTER 2018-02-07 18:37 | Emergency (ER) | payer OTHER ==
[~2018-02-07 18:37] MED LIST changes: +ESOM40CA PO
== END 2018-02-07 18:51 | disposition left against medical advice (07) ==
LOC: ER 18:37
DX: R10.9 Unspecified abdominal pain (principal); Z53.21 Procedure and treatment not carried out due to patient leaving prior to being seen by health care provider

== ENCOUNTER 2018-02-15 10:58 | Emergency (ER) | payer OTHER ==
[2018-02-15] MEDS ORDERED: ONDA4TAB10 SL (11:43)
--- NOTE | 2018-02-15 11:43 | PHYS DOC ---
Past History Past Medical History: Diabetes, Hypotension, Other Additional Past Medical Histor: drug-seeking behavior Past Surgical History: , Hysterectomy, Other Smoking: Cigarettes, Less than 1pk/day Alcohol Use: None Drug Use: None Adult General Chief Complaint Chief Complaint: ABDOMINAL PAIN [facility] HPI Patient is a 37 year old female who presents with complaining of abdominal pain. Patient has history of chronic abdominal pain and frequent emergency room visits and states her abdominal pain getting worse after she ran out of hydrocodone and asking for prescription of hydrocodone. Patient states the pain is a constant sharp pain in right and left upper abdomen and rated her pain severe. Patient states the last time she was in emergency room she had 6 hydrocodone and asking for the same treatment. Review of Systems Review of Systems Constitutional: Denies fever or chills [] Eyes: Denies change in visual acuity, redness, or eye pain [] HENT: Denies nasal congestion or sore throat [] Respiratory: Denies cough or shortness of breath [] Cardiovascular: No additional information not addressed in HPI [] GI: Reports abdominal pain, nausea, denies vomiting, bloody stools or diarrhea [ ] : Denies dysuria or hematuria [] Musculoskeletal: Denies back pain or joint pain [] Integument: Denies rash or skin lesions [] Neurologic: Denies headache, focal weakness or sensory changes [] Endocrine: Denies polyuria or polydipsia [] All other systems were reviewed and found to be within normal limits, except as documented in this note. Current Medications Current Medications Current Medications Medications (Trade) Dose Ordered Sig/Thang Start Time Stop Time Status Last Admin Dose Admin Multi-Ingredient Mouthwash/Gargle (Gi Cocktail) 20 ml 1X ONCE 02/15/18 11:45 02/15/18 11:46 02/15/18 11:34 20 ML Allergies Allergies Allergies Coded Allergies Type Severity Reaction Last Updated Verified ibuprofen Allergy Unknown 02/15/18 Yes tramadol Allergy Unknown 02/15/18 Yes lorazepam Adverse Reaction Intermediate 02/15/18 Yes Physical Exam Physical Exam Constitutional: Well developed, well nourished, no acute distress, non-toxic appearance , anxious. [] HENT: Normocephalic, atraumatic. [] Eyes: PERRLA, EOMI, conjunctiva normal, no discharge. [] Neck: Normal range of motion, no tenderness, supple, no stridor. [] Cardiovascular:Heart rate regular rhythm, no murmur [] Lungs & Thorax: Bilateral breath sounds clear to auscultation [] Abdomen: Bowel sounds normal, soft, voluntary guarding of upper abdomen, no tenderness, no masses, no pulsatile masses. [] Skin: Warm, dry, no erythema, no rash. [] Back: No tenderness, no CVA tenderness. [] Extremities: No tenderness, no cyanosis, no clubbing, ROM intact, no edema. [] Neurologic: Alert and oriented X 3, normal motor function, normal sensory function, no focal deficits noted. [] Psychologic: Affect anxious, judgement normal, mood normal. [] Current Patient Data Vital Signs Vital Signs Date Time Temp Pulse Resp B/P (MAP) Pulse Ox O2 Delivery O2 Flow Rate FiO2 02/15/18 11:07 97.7 84 18 100 Room Air EKG EKG [] Radiology/Procedures Radiology/Procedures [] Course & Med Decision Making Course & Med Decision Making Evaluation of patient in ER showed 37-year-old female patient with complaining of chronic abdominal pain and asking for prescription of hydrocodone. Patient informed that she cannot give prescription of hydrocodone emergency room for chronic pain and needs to follow with her primary care physician. Patient asking for a dose of hydrocodone in emergency room and patient was told that she cannot have hydrocodone in emergency room. Patient has had history of drug- seeking behavior and frequent emergency room visits. Dragon Disclaimer Dragon Disclaimer This electronic medical record was generated, in whole or in part, using a voice recognition dictation system. Departure Departure: Impression: Primary Impression: Chronic abdominal pain Additional Impressions: Tobacco abuse Drug-seeking behavior Anxiety and depression Disposition: 01 HOME, SELF-CARE (at 1140) Condition: STABLE Referrals: CYNTHIA ADORNO MD (PCP) Patient Instructions: Abdominal Pain, Smoking Cessation, Tips For Success Additional Instructions: Follow-up with your primary care physician regarding chronic abdominal pain and prescription for narcotic pain medication Scripts Ondansetron (ZOFRAN ODT) 4 Mg Tab.rapdis 1 TAB SL Q8HRS, #10 TAB Prov: RAFAEL BALLESTEROS MD 02/15/18 Problem Qualifiers RAFAEL BALLESTEROS MD Feb 15, 2018 11:43
[2018-02-15] MEDS ORDERED: LIDO:MAALOX 1:1 20 ML SINGLE DOSE. PO ONE (11:45)
[2018-02-15 11:58] VITALS: BP 108/76
[2018-02-15] MEDS ORDERED: ONDANSETRON ODT 4 MG TAB.RAPDIS PO ONE (12:00)
[2018-02-15] MEDS ORDERED: ORPHENADRINE CITRATE 60 MG/2 ML VIAL. IM ONE (12:30)
== END 2018-02-15 12:26 | disposition home or self-care (01) ==
LOC: ER 10:58
DX: G89.29 Other chronic pain (principal); R10.9 Unspecified abdominal pain; F17.210 Nicotine dependence, cigarettes, uncomplicated; F41.9 Anxiety disorder, unspecified; F32.9 Major depressive disorder, single episode, unspecified; E11.9 Type 2 diabetes mellitus without complications; Z76.5 Malingerer [conscious simulation]; Z98.890 Other specified postprocedural states; Z90.710 Acquired absence of both cervix and uterus; Z88.8 Allergy status to other drugs, medicaments and biological substances
CPT/HCPCS: 99283; Q0162

== ENCOUNTER 2018-03-15 10:37 | Emergency (ER) | payer OTHER ==
[~2018-03-15] VITALS: Ht 154.9 cm; Wt 51.2 kg
[~2018-03-15 10:37] MED LIST changes: +ONDA4TAB10 SL
[2018-03-15 10:45] VITALS: BP 105/57
--- NOTE | 2018-03-15 11:10 | PHYS DOC ---
Past History Past Medical History: Diabetes, Hypotension, Other Additional Past Medical Histor: drug-seeking behavior Past Surgical History: , Hysterectomy, Other Smoking: Cigarettes, Less than 1pk/day Alcohol Use: None Drug Use: None Adult General Chief Complaint Chief Complaint: DENTAL PROBLEM HPI HPI Patient is a 37 year old female who presents with c/o jaw pain for 2-3 days as a constant pain with radiation to right ear. Patient does not have any tooth but complaining of pain in her gum and jaw. Patient has had frequent emergency room visits and drug-seeking behavior. Review of Systems Review of Systems Constitutional: Denies fever or chills [] Eyes: Denies change in visual acuity, redness, or eye pain [] HENT: Denies nasal congestion or sore throat [] Respiratory: Denies cough or shortness of breath [] Cardiovascular: No additional information not addressed in HPI [] GI: Denies abdominal pain, nausea, vomiting, bloody stools or diarrhea [] : Denies dysuria or hematuria [] Musculoskeletal: Denies back pain or joint pain [] Integument: Denies rash or skin lesions [] Neurologic: Denies headache, focal weakness or sensory changes [] Endocrine: Denies polyuria or polydipsia [] All other systems were reviewed and found to be within normal limits, except as documented in this note. Allergies Allergies Allergies Coded Allergies Type Severity Reaction Last Updated Verified ibuprofen Allergy Unknown 02/15/18 Yes tramadol Allergy Unknown 02/15/18 Yes lorazepam Adverse Reaction Intermediate 02/15/18 Yes Physical Exam Physical Exam Constitutional: Well developed, well nourished, anxious, non-toxic appearance. [ ] HENT: Normocephalic, atraumatic, bilateral external ears normal, oropharynx moist, no oral exudates, nose normal, no sign of gum injury or abscess, patient doesn't have any teeth. [] Eyes: PERRLA, EOMI, conjunctiva normal, no discharge. [] Neck: Normal range of motion, no tenderness, supple, no stridor. [] Cardiovascular:Heart rate regular rhythm, no murmur [] Lungs & Thorax: Bilateral breath sounds clear to auscultation [] Extremities: No tenderness, no cyanosis, no clubbing, ROM intact, no edema. [] Neurologic: Alert and oriented X 3, normal motor function, normal sensory function, no focal deficits noted. [] Psychologic: Affect anxious, judgement normal, mood normal. [] Current Patient Data Vital Signs Vital Signs Date Time Temp Pulse Resp B/P (MAP) Pulse Ox O2 Delivery O2 Flow Rate FiO2 03/15/18 10:45 98.1 86 18 98 Room Air EKG EKG [] Radiology/Procedures Radiology/Procedures [] Course & Med Decision Making Course & Med Decision Making Patient left before having medication in ER. Dragon Disclaimer Dragon Disclaimer This electronic medical record was generated, in whole or in part, using a voice recognition dictation system. Departure Departure: Impression: Primary Impression: Jaw pain Additional Impressions: Left against medical advice Tobacco abuse Disposition: AGAINST MEDICAL ADVICE (at 11:15) Condition: STABLE Referrals: CYNTHIA ADORNO MD (PCP) Problem Qualifiers RAAFEL BALLESTEROS MD Mar 15, 2018 11:10
[2018-03-15] MEDS ORDERED: LIDOCAINE 2% VISCOUS 15 ML SOLUTION. SWSW ONE (11:30)
== END 2018-03-15 11:10 | disposition left against medical advice (07) ==
LOC: ER 10:37
DX: R68.84 Jaw pain (principal); E11.9 Type 2 diabetes mellitus without complications; Z76.5 Malingerer [conscious simulation]; F17.210 Nicotine dependence, cigarettes, uncomplicated; Z88.6 Allergy status to analgesic agent; Z88.8 Allergy status to other drugs, medicaments and biological substances
CPT/HCPCS: 99281

== ENCOUNTER 2018-06-30 09:56 | Emergency (ER) | payer OTHER ==
[~2018-06-30] VITALS: Ht 154.9 cm; Wt 49.9 kg
[~2018-06-30 09:56] MED LIST changes: +CLON1TAB11 PO; -CLON1TAB4 PO; +HYDR-2155 PO; -HYDR-2758 PO; +HYDR-3165 PO; -HYDR-971 PO; -OXYC-323 PO; +OXYC1TAB15 PO
[2018-06-30] MEDS ORDERED: IV NORMAL SALINE 1,000ML 1,000 ML IV ONE (10:15)
[2018-06-30 10:49] LABS: BASO % 1 % (0-3); EOS # 0.2 x10^3/uL (0.0-0.7); EOS % 2 % (0-3); HEMATOCRIT 34.6 % (36.0-47.0); HEMOGLOBIN 11.5 g/dL (12.0-15.5); LYMPH # 3.3 x10^3/uL (1.0-4.8); LYMPH % 47 % (24-48); MEAN CORPUSCULAR HEMOGLOBIN 32 pg (25-35); MEAN CORPUSCULAR HGB CONC 33 g/dL (31-37); MEAN CORPUSCULAR VOLUME 96 fL (79-100); MONO # 0.6 x10^3/uL (0.0-1.1); MONO % 8 % (0-9); NEUT # 2.9 x10^3uL (1.8-7.7); NEUT % 42 % (31-73); PLATELET COUNT 305 x10^3/uL (140-400); RED BLOOD COUNT 3.61 x10^6/uL (3.50-5.40); RED CELL DISTRIBUTION WIDTH 13.5 % (11.5-14.5)
--- NOTE | 2018-06-30 10:59 | RAD ---
CT of the head without contrast, 06/30/2018: HISTORY: Fall, headache, dizziness Comparison is made to a study from 11/01/2009. The ventricles are within normal limits in size. There is no shift of the midline structures. There is no evidence of acute intracranial hemorrhage or mass effect. An 8 mm focal lucency has developed in the superior aspect of the right cerebellar hemisphere since the previous study. This has a cystic appearance. No abnormal extra-axial fluid collection or mass is seen. IMPRESSION: 1. New small right cerebellar lucency suggesting a focus of encephalomalacia due to a previous infarct or inflammatory insult. MR scanning may be useful for further evaluation, if clinically indicated. 2. No acute intracranial abnormality is detected. Electronically signed by: Idris Hammond MD (06/30/2018 10:54 AM) [facility]
[2018-06-30 11:00] LABS: BARBITURATES NEG (NEG); BENZODIAZEPINES NEG (NEG); CANNABINOIDS NEG (NEG); COCAINE NEG (NEG); METHADONE NEG (NEG); OPIATES NEG (NEG); PHENCYCLIDINE NEG (NEG)
[2018-06-30 11:03] LABS: AMPHETAMINE/METHAMPHETAMINE NEG (NEG)
[2018-06-30 11:07] LABS: ALBUMIN 3.6 g/dL (3.4-5.0); ALBUMIN/GLOBULIN RATIO 1.2 (1.0-1.7); CALCIUM 8.5 mg/dL (8.5-10.1); CREATININE 0.8 mg/dL (0.6-1.0); GFR 96.6; POTASSIUM 3.4 mmol/L (3.5-5.1); TOTAL BILIRUBIN 0.2 mg/dL (0.2-1.0); TOTAL PROTEIN 6.7 g/dL (6.4-8.2)
--- NOTE | 2018-06-30 11:09 | PHYS DOC ---
Past History Past Medical History: Anxiety, Depression, Diabetes Additional Past Medical Histor: drug-seeking behavior Past Surgical History: Hysterectomy, Other Smoking: Cigarettes, Less than 1pk/day Alcohol Use: None Drug Use: None Adult General Chief Complaint Chief Complaint: SYNCOPE HPI HPI Patient is a 38-year-old female who presents with complaint of severe headache. Patient states that she became lightheaded and had syncopal episode, fell, and struck her head. Patient now complains of severe headache that she rates at a 10 out of 10. She states that she has had no vomiting or diarrhea. She also denies any fever. Patient states that headache is worsened with change of position. She denies any abdominal pain. Review of Systems Review of Systems Constitutional: Denies fever or chills [] Eyes: Denies change in visual acuity, redness, or eye pain [] Respiratory: Denies cough or shortness of breath [] Cardiovascular: No additional information not addressed in HPI [] GI: Denies abdominal pain, nausea, vomiting, bloody stools or diarrhea [] Musculoskeletal: Denies back pain or joint pain [] Neurologic: Complains of headache without focal weakness or sensory changes [] All other systems were reviewed and found to be within normal limits, except as documented in this note. Current Medications Current Medications Current Medications Medications (Trade) Dose Ordered Sig/[facility] Start Time Stop Time Status Last Admin Dose Admin Sodium Chloride 1,000 ml @ 1,000 mls/hr 1X ONCE 06/30/18 10:15 06/30/18 11:14 06/30/18 10:18 1,000 MLS/HR Allergies Allergies Allergies Coded Allergies Type Severity Reaction Last Updated Verified acetaminophen Allergy Unknown 03/15/18 Yes ibuprofen Allergy Unknown 02/15/18 Yes tramadol Allergy Unknown 02/15/18 Yes lorazepam Adverse Reaction Intermediate 02/15/18 Yes Physical Exam Physical Exam Constitutional: Well developed, well nourished, no acute distress, non-toxic appearance. [] HENT: Normocephalic, atraumatic, bilateral external ears normal, oropharynx moist, no oral exudates, nose normal. [] Eyes: PERRLA, EOMI, conjunctiva normal, no discharge. [] Neck: Normal range of motion, no tenderness, supple, no stridor. [] Cardiovascular: Regular rate and rhythm [] Lungs & Thorax: Bilateral breath sounds clear to auscultation [] Abdomen: Bowel sounds normal, soft, no tenderness. [] Skin: Warm, dry, no erythema, no rash. [] Extremities: No tenderness, no cyanosis, no clubbing, ROM intact, no edema. [] Neurologic: Alert and oriented X 3, no focal deficits noted. [] Current Patient Data Vital Signs Vital Signs Date Time Temp Pulse Resp B/P (MAP) Pulse Ox O2 Delivery O2 Flow Rate FiO2 06/30/18 11:02 66 18 100/64 (76) 100 Room Air 06/30/18 10:06 98.1 Lab Results Laboratory Tests Test 06/30/18 10:02 06/30/18 10:37 Glucose (Fingerstick) 90 mg/dL (70-99) Urine Opiates Screen Neg (NEG) Urine Methadone Screen Neg (NEG) Urine Barbiturates Neg (NEG) Urine Phencyclidine Screen Neg (NEG) Urine Amphetamine/Methamphetamine Neg (NEG) Urine Benzodiazepines Screen Neg (NEG) Urine Cocaine Screen Neg (NEG) Urine Cannabinoids Screen Neg (NEG) Urine Ethyl Alcohol Neg (NEG) EKG EKG [] Radiology/Procedures Radiology/Procedures [] Impressions: T of the head without contrast, 06/30/2018: HISTORY: Fall, headache, dizziness Comparison is made to a study from 11/01/2009. The ventricles are within normal limits in size. There is no shift of the midline structures. There is no evidence of acute intracranial hemorrhage or mass effect. An 8 mm focal lucency has developed in the superior aspect of the right cerebellar hemisphere since the previous study. This has a cystic appearance. No abnormal extra-axial fluid collection or mass is seen. IMPRESSION: 1. New small right cerebellar lucency suggesting a focus of encephalomalacia due to a previous infarct or inflammatory insult. MR scanning may be useful for further evaluation, if clinically indicated. 2. No acute intracranial abnormality is detected. Electronically signed by: Idris Hammond MD (06/30/2018 10:54 AM) [facility] Course & Med Decision Making Course & Med Decision Making Pertinent Labs and Imaging studies reviewed. (See chart for details) [] Dragon Disclaimer Dragon Disclaimer This electronic medical record was generated, in whole or in part, using a voice recognition dictation system. Departure Departure: Impression: Primary Impression: Syncope Additional Impressions: Headache Chronic pain Drug-seeking behavior Disposition: 01 HOME, SELF-CARE Condition: STABLE Referrals: SARAH NEGRON (PCP) Patient Instructions: Chronic Pain, Headache, FAQs, Syncope Problem Qualifiers Primary Impression: Syncope Syncope type: unspecified Qualified Codes: R55 - Syncope and collapse Additional Impressions: Headache Headache type: unspecified Headache chronicity pattern: unspecified pattern Intractability: not intractable Qualified Codes: R51 - Headache Chronic pain Chronic pain type: other chronic pain Qualified Codes: G89.29 - Other chronic pain SHASTA MELARA Jr. DO Jun 30, 2018 11:09
[2018-06-30 11:25] LABS: BACTERIA,URINE 0 /HPF (0-FEW); BILIRUBIN,URINE NEG (NEG); CLARITY,URINE CLEAR; COLOR,URINE STRAW; GLUCOSE,URINE NEG (NEG); NITRITE,URINE NEG (NEG); RBC,URINE 0 /HPF (0-2); SQUAMOUS EPITHELIAL CELL,UR OCC /LPF; UROBILINOGEN,URINE 0.2 mg/dL (0.2 mg/dL); WBC,URINE 0 /HPF (0-4)
[2018-06-30] MEDS ORDERED: SUMAtriptan SUCCINATE 50 MG TABLET PO ONE (11:30)
[2018-06-30] MEDS ORDERED: SUMAtriptan SUCC 6 MG/0.5 ML VIAL SQ ONE (11:30)
[2018-06-30 11:32] VITALS: BP 102/66
--- NOTE | 2018-06-30 15:55 | EKG ---
[address] [address] Test Date: 2018-06-30 Test Time: 10:20:21 Pat Name: CIRA SINGH Department: Room: Gender: F [employer]: : 1980 Requested By: SHASTA MELARA Order Number: [id number] Reading MD: Measurements Intervals [place] Rate: 74 P: LA: QRS: 61 QRSD: 82 T: 41 QT: 416 QTc: 462 Interpretive Statements IRREGULAR RHYTHM, NO P-WAVE FOUND LOW LIMB LEAD VOLTAGE NO SPECIFIC ECG ABNORMALITIES RI6.01 No previous ECG available for comparison
== END 2018-06-30 11:41 | disposition home or self-care (01) ==
LOC: ER 09:56
DX: R55 Syncope and collapse (principal); R51 Headache; G89.29 Other chronic pain; F41.9 Anxiety disorder, unspecified; F32.9 Major depressive disorder, single episode, unspecified; E11.9 Type 2 diabetes mellitus without complications; F17.210 Nicotine dependence, cigarettes, uncomplicated; Z76.5 Malingerer [conscious simulation]; Z88.6 Allergy status to analgesic agent; Z88.8 Allergy status to other drugs, medicaments and biological substances; W18.09XA Striking against other object with subsequent fall, initial encounter; Y93.89 Activity, other specified; Y92.89 Other specified places as the place of occurrence of the external cause; Y99.8 Other external cause status
CPT/HCPCS: 36415; 70450; 80053; 80307; 81001; 82947; 85025; 93005; 96360; 99284-25; J7030

== ENCOUNTER 2019-06-12 08:07 | Emergency (ER) | payer OTHER ==
[~2019-06-12] VITALS: Ht 154.9 cm; Wt 54.3 kg
[~2019-06-12 08:07] MED LIST changes: +OMEP20CA16 PO; -OMEP20CA9 PO; +RANI-376 PO; -RANI150T21 PO
[2019-06-12] MEDS ORDERED: HYDROcodone/APAP 5/325MG 1 TAB TABLET ONE (09:00)
--- NOTE | 2019-06-12 09:08 | PHYS DOC ---
Past History Past Medical History: Anxiety, Depression Additional Past Medical Histor: drug-seeking behavior; hypoglycemia Past Surgical History: , Hysterectomy, Other Additional Past Surgical Histo: D&C Smoking: Cigarettes, Less than 1pk/day Alcohol Use: None Drug Use: None Adult General Chief Complaint Chief Complaint: MEDICATION REFILL HPI HPI 39-year-old female presents with left forearm pain. The patient states that she "broke my arm" 2 weeks ago and was seen at another hospital. She presents here today because she is out of her pain medication and states that it still hurts. She told my nurse that she was discharged with 60 mg morphine tablets for her pain. The patient is been seen in this emergency room several times for overdoses she has no new complaints at this time. No new injuries. Review of Systems Review of Systems Constitutional: Denies fever or chills [] Eyes: Denies change in visual acuity, redness, or eye pain [] HENT: Denies nasal congestion or sore throat [] Respiratory: Denies cough or shortness of breath [] Cardiovascular: No additional information not addressed in HPI [] GI: Denies abdominal pain, nausea, vomiting, bloody stools or diarrhea [] : Denies dysuria or hematuria [] Musculoskeletal: Left arm pain[] Integument: Denies rash or skin lesions [] Neurologic: Denies headache, focal weakness or sensory changes [] Endocrine: Denies polyuria or polydipsia [] All other systems were reviewed and found to be within normal limits, except as documented in this note. Allergies Allergies Allergies Coded Allergies Type Severity Reaction Last Updated Verified acetaminophen Allergy Unknown 06/12/19 Yes ibuprofen Allergy Unknown 06/12/19 Yes tramadol Allergy Unknown 06/12/19 Yes lorazepam Adverse Reaction Intermediate 06/12/19 Yes Physical Exam Physical Exam Constitutional: Well developed, well nourished, no acute distress, non-toxic appearance. [] HENT: Normocephalic, atraumatic, bilateral external ears normal, oropharynx moist, no oral exudates, nose normal. [] Eyes: PERRLA, EOMI, conjunctiva normal, no discharge. [] Neck: Normal range of motion, no tenderness, supple, no stridor. [] Cardiovascular:Heart rate regular rhythm, no murmur [] Lungs & Thorax: Bilateral breath sounds clear to auscultation [] Abdomen: Bowel sounds normal, soft, no tenderness, no masses, no pulsatile masses. [] Skin: Warm, dry, no erythema, no rash. [] Back: No tenderness, no CVA tenderness. [] Extremities: Left forearm in Velcro splint, no cyanosis, no clubbing, ROM intact, no edema. [] Neurologic: Alert and oriented X 3, normal motor function, normal sensory function, no focal deficits noted. [] Psychologic: Affect normal, judgement normal, mood normal. [] Current Patient Data Vital Signs Vital Signs Date Time Temp Pulse Resp B/P (MAP) Pulse Ox O2 Delivery O2 Flow Rate FiO2 06/12/19 08:18 98.4 86 18 97 Room Air EKG EKG [] Radiology/Procedures Radiology/Procedures [] Course & Med Decision Making Course & Med Decision Making Pertinent Labs and Imaging studies reviewed. (See chart for details) The patient should not be having this level of pain fracture 2 weeks after. She was also placed in a cast which makes me question whether or not it was broken. I'll advise that she go back to her orthopedic doctor for continued pain management and further evaluation in case she needs some further intervention. I can only give her 1 pain pill here in the emergency room. I will give her a [place] 5/325. I will not discharge her with any pain medication. [] Dragon Disclaimer Dragon Disclaimer This electronic medical record was generated, in whole or in part, using a voice recognition dictation system. Departure Departure: Impression: Primary Impression: Right arm pain Disposition: HOME, SELF-CARE Condition: STABLE Referrals: SARAH NEGRON (PCP) Additional Instructions: Please return your orthopedic doctor to discuss your arm and whether it needs any further treatment. They will also handle your pain medication. STEPHANIA AGUILAR DO Jun 12, 2019 09:08
[2019-06-12 09:10] VITALS: BP 100/67
[2019-06-12] MEDS ORDERED: HYDROcodone/APAP 5/325MG 1 TAB TABLET PO ONE (09:15)
== END 2019-06-12 09:17 | disposition home or self-care (01) ==
LOC: ER 08:07
DX: M79.632 Pain in left forearm (principal); F17.210 Nicotine dependence, cigarettes, uncomplicated; Z88.8 Allergy status to other drugs, medicaments and biological substances; Z88.6 Allergy status to analgesic agent
CPT/HCPCS: 99283

== ENCOUNTER 2020-03-07 02:28 | Emergency (ER) | payer OTHER ==
[~2020-03-07] VITALS: Ht 154.9 cm; Wt 53.8 kg
--- NOTE | 2020-03-07 02:41 | PHYS DOC ---
Past History Past Medical History: Anxiety, Depression Additional Past Medical Histor: drug-seeking behavior; hypoglycemia Past Surgical History: , Hysterectomy, Other Additional Past Surgical Histo: D&C Smoking: Cigarettes, Less than 1pk/day Alcohol Use: None Drug Use: None General Adult HPI: HPI: ".. My right ear been bothering me.. I went to [place] where I usually go... but they are closed.. now... " Patient is a 39 year old female who presents with above hx and complaints of ear and facial pain. Patient has some tenderness on moving of external canal. There is dullness of the TM. Small amount of fluid. Patient has no teeth on right mandible or maxillary area. No adenopathy. Patient denies any history immunosuppression. No recent travel. Patient no specific ill contacts Review of Systems: Review of Systems: Constitutional: Denies fever or chills Eyes: Denies change in visual acuity HENT: Complains of right ear pain Respiratory: Denies cough or shortness of breath Cardiovascular: Denies chest pain or edema GI: Denies abdominal pain, nausea, vomiting, bloody stools or diarrhea : Denies dysuria Musculoskeletal: Denies back pain or joint pain Integument: Denies rash Neurologic: Denies headache, focal weakness or sensory changes Endocrine: Denies polyuria or polydipsia Lymphatic: Denies swollen glands Psychiatric: Denies depression or anxiety Heart Score: Risk Factors: Risk Factors: DM, Current or recent (<one month) smoker, HTN, HLP, family history of CAD, obesity. Risk Scores: Score 0 - 3: 2.5% MACE over next 6 weeks - Discharge Home Score 4 - 6: 20.3% MACE over next 6 weeks - Admit for Clinical Observation Score 7 - 10: 72.7% MACE over next 6 weeks - Early Invasive Strategies Family History: Family History: Noncontributory Current Medications: Current Meds: See nursing for home meds Allergies: Allergies: Allergies Coded Allergies Type Severity Reaction Last Updated Verified ibuprofen Allergy Unknown 06/12/19 Yes tramadol Allergy Unknown 06/12/19 Yes lorazepam Adverse Reaction Intermediate 06/12/19 Yes Physical Exam: PE: Constitutional: Moderate acute distress, non-toxic appearance. [] HENT: Normocephalic, atraumatic, right external canal injected and TM injected, left external ears normal, oropharynx moist, no oral exudates, nose normal. [] Eyes: PERRLA, EOMI, conjunctiva normal, no discharge. [] Neck: Normal range of motion, no tenderness, supple, no stridor. [] Cardiovascular:Heart rate regular rhythm, no murmur [] Lungs & Thorax: Bilateral breath sounds equal apex scattered wheezes auscultation [] Abdomen: Bowel sounds normal, soft, no tenderness, no masses, no pulsatile masses. Old surgery scars Skin: Warm, dry, no erythema, no rash. [] Back: No tenderness, no CVA tenderness. [] Extremities: No tenderness, no cyanosis, no clubbing, ROM intact, no edema. [] Neurologic: Alert and oriented X 3, normal motor function, normal sensory function, no focal deficits noted. [] Psychologic: Affect anxious, judgement normal, mood normal. [] EKG: EKG: [] Radiology/Procedures: Radiology/Procedures: [] Course & Med Decision Making: Course & Med Decision Making Pertinent Labs and Imaging studies reviewed. (See chart for details) Patient take Tylenol as needed for pain. For marked pain may take Percocet. Use Cortisporin eardrops 2 drops 4 times a day to the right ear. Patient take Keflex 500 mg 3 times a day. Patient follow-up primary care. Patient return if any concerns. [] Impression: 1. Right external and media otitis Dragon Disclaimer: Og Disclaimer: This electronic medical record was generated, in whole or in part, using a voice recognition dictation system. Departure Departure: Disposition: 01 HOME/RESIDENCE PRIOR TO ADM Condition: STABLE Referrals: SARAH NEGRON (PCP) Scripts Cephalexin (KEFLEX) 500 Mg Capsule 500 MG PO TID for otitis for 7 Days, BOTTLE Prov: DONYA CARMONA MD 03/07/20 Og Disclaimer This chart was dictated in whole or in part using Voice Recognition software in a busy, high-work load, and often noisy Emergency Department environment. It may contain unintended and wholly unrecognized errors or omissions. DONYA CARMONA MD Mar 07, 2020 02:40
[2020-03-07] MEDS ORDERED: HYDROcodon/IBUPROFEN 7.5/200MG 1 TAB TABLET PO ONE (02:45)
[2020-03-07] MEDS ORDERED: CEPH-264 PO (02:48)
[2020-03-07] MEDS ORDERED: oxyCODONE/APAP 5/325 1 TAB TABLET PO ONE (03:00)
[2020-03-07] MEDS ORDERED: CEPHALEXIN 250 MG CAPSULE PO ONE (03:00)
[2020-03-07] MEDS ORDERED: NEOMYCIN/POLYMYXIN/HC OTIC SUSPENSION 10ML BOTTLE. AD ONE (03:00)
[2020-03-07 03:25] VITALS: BP 103/70
[2020-03-08] MEDS ORDERED: OMEP20TA63 PO (06:00)
== END 2020-03-07 03:25 | disposition home or self-care (01) ==
LOC: ER 02:28
DX: H66.91 Otitis media, unspecified, right ear (principal); H60.91 Unspecified otitis externa, right ear; F17.210 Nicotine dependence, cigarettes, uncomplicated; Z88.6 Allergy status to analgesic agent; Z88.8 Allergy status to other drugs, medicaments and biological substances
CPT/HCPCS: 99284

== ENCOUNTER 2020-03-08 05:18 | Emergency (ER) | payer OTHER ==
[~2020-03-08] VITALS: Ht 154.9 cm; Wt 53.8 kg
--- NOTE | 2020-03-08 05:27 | PHYS DOC ---
Past History Past Medical History: Anxiety, Arthritis, Diabetes, GERD Additional Past Medical Histor: drug-seeking behavior; hypoglycemia Past Surgical History: No Surgical History Additional Past Surgical Histo: D&C Smoking: Cigarettes, Less than 1pk/day Alcohol Use: None Drug Use: None General Adult HPI: HPI: "...I have not filled my antibiotics yet.. but I had a upset stomach this morning... I took some tylenol.. it upset my stomach.. I can take Percocet hydrocodone about upsetting my stomach.. " Patient is a 39 year old female who presents with above hx and complaints of epigastric pain upon awakening this morning. Patient denies any intake of bad food. Seen here last night for right ear pain and otitis. Has not filled Keflex prescription. Has been using eardrops. Patient states she is out of her regular pain meds. Patient denies any travel outside the [place] area. No specific ill contacts. Patient has previous history of gastritis and GERD. Patient frequently presents with appearance of drug-seeking behaviors. Pt. normally follows with Enma Goss. Patient does continue to smoke. Review of Systems: Review of Systems: Constitutional: Denies fever or chills Eyes: Denies change in visual acuity HENT: Denies nasal congestion or sore throat. Complaints of right ear pain Respiratory: Denies cough or shortness of breath Cardiovascular: Denies chest pain or edema GI: Complains of abdominal pain, nausea. Denies, vomiting, bloody stools or diarrhea : Denies dysuria Musculoskeletal: Denies back pain or joint pain Integument: Denies rash Neurologic: Denies headache, focal weakness or sensory changes Endocrine: Denies polyuria or polydipsia Lymphatic: Denies swollen glands Psychiatric: Denies depression or anxiety Heart Score: Risk Factors: Risk Factors: DM, Current or recent (<one month) smoker, HTN, HLP, family history of CAD, obesity. Risk Scores: Score 0 - 3: 2.5% MACE over next 6 weeks - Discharge Home Score 4 - 6: 20.3% MACE over next 6 weeks - Admit for Clinical Observation Score 7 - 10: 72.7% MACE over next 6 weeks - Early Invasive Strategies Family History: Family History: Noncontributory to presentation Current Medications: Current Meds: See nursing for home meds Allergies: Allergies: Allergies Coded Allergies Type Severity Reaction Last Updated Verified ibuprofen Allergy Unknown 06/12/19 Yes tramadol Allergy Unknown 06/12/19 Yes lorazepam Adverse Reaction Intermediate 06/12/19 Yes Physical Exam: PE: Constitutional: no acute distress, non-toxic appearance. [] HENT: Normocephalic, atraumatic, bilateral external ears normal, oropharynx moist, no oral exudates, nose normal. Mild injection right TM Eyes: PERRLA, EOMI, conjunctiva normal, no discharge. [] Neck: Normal range of motion, no tenderness, supple, no stridor. [] Cardiovascular:Heart rate regular rhythm, no murmur [] Lungs & Thorax: Bilateral breath sounds equal at apex on auscultation. Few s cattered wheezes Abdomen: Bowel sounds normal, soft, mid abdomen tenderness, no masses, no pulsatile masses. [] Old surgery scars. Distract exam has no pain. Minimal rebound to periumbilical area. Skin: Warm, dry, no erythema, no rash. [] Back: No tenderness, no CVA tenderness. [] Extremities: No tenderness, no cyanosis, no clubbing, ROM intact, no edema. No psoas sign. Neurologic: Alert and oriented X 3, normal motor function, normal sensory function, no focal deficits noted. [] Psychologic: Affect anxious, judgement normal, mood normal. [] EKG: EKG: [] Radiology/Procedures: Radiology/Procedures: [] Course & Med Decision Making: Course & Med Decision Making Pertinent Labs and Imaging studies reviewed. (See chart for details) Patient instructed to fill prescription Keflex last night for her right ear pain and mild otitis. Patient continue to use her Cortisporin eardrops. Patient to take her Prilosec as previously directed. Patient to follow-up with Wolfgang. Patient informed that her chronic pain meds must be refilled with primary care physician. Patient instructed to be on a clear fluid diet for the next 48 hours. No solids or milk products. Re-exam if no improvement. Impression: 1. Abdomen pain 2. History of GERD and gastritis 3. Mild right otitis 4. Tobacco abuse 5. Appears to exhibit narcotic seeking behaviors [] Dragon Disclaimer: Dragon Disclaimer: This electronic medical record was generated, in whole or in part, using a voice recognition dictation system. Departure Departure: Disposition: 01 HOME/RESIDENCE PRIOR TO ADM Condition: STABLE Referrals: PCP,NO (PCP) Scripts Omeprazole Magnesium (PRILOSEC OTC) 20 Mg Tablet. 20 MG PO BID for GERD, Gastritis for 30 Days, #60 TAB Prov: DONYA CARMONA MD 03/08/20 [place] Disclaimer This chart was dictated in whole or in part using Voice Recognition software in a busy, high-work load, and often noisy Emergency Department environment. It may contain unintended and wholly unrecognized errors or omissions. DONYA CARMONA MD Mar 08, 2020 05:27
[2020-03-08] MEDS ORDERED: MAGNESIUM HYDROXIDE 2,400 MG/30 ML ORAL.SUSP. PO ONE (06:00)
[2020-03-08] MEDS ORDERED: OMEP20TA63 PO (06:00)
[2020-03-08] MEDS ORDERED: oxyCODONE/APAP 5/325 1 TAB TABLET PO ONE (06:00)
[2020-03-08] MEDS ORDERED: FAMOTIDINE 20 MG TABLET PO ONE (06:00)
[2020-03-08] MEDS ORDERED: HYDROcodone/APAP 5/325MG 1 TAB TABLET ONE (06:31)
[2020-03-08 06:45] VITALS: BP 98/55
[2020-03-08 06:47] LABS: BARBITURATES NEG (NEG); BENZODIAZEPINES NEG (NEG); CANNABINOIDS NEG (NEG); COCAINE NEG (NEG); METHADONE NEG (NEG); OPIATES NEG (NEG); PHENCYCLIDINE NEG (NEG)
[2020-03-08 06:48] LABS: AMPHETAMINE/METHAMPHETAMINE NEG (NEG)
[2020-03-08 06:57] LABS: BACTERIA,URINE 0 /HPF (0-FEW); BILIRUBIN,URINE NEG (NEG); CLARITY,URINE CLEAR; COLOR,URINE STRAW; GLUCOSE,URINE NEG (NEG); NITRITE,URINE NEG (NEG); RBC,URINE RARE /HPF (0-2); UROBILINOGEN,URINE 0.2 mg/dL (0.2 mg/dL); WBC,URINE RARE /HPF (0-4)
[2020-03-08 06:58] LABS: SQUAMOUS EPITHELIAL CELL,UR FEW /LPF
== END 2020-03-08 06:56 | disposition home or self-care (01) ==
LOC: ER 05:18
DX: R10.13 Epigastric pain (principal); H66.91 Otitis media, unspecified, right ear; K21.9 Gastro-esophageal reflux disease without esophagitis; M19.90 Unspecified osteoarthritis, unspecified site; E11.9 Type 2 diabetes mellitus without complications; F17.210 Nicotine dependence, cigarettes, uncomplicated; Z76.5 Malingerer [conscious simulation]; Z88.6 Allergy status to analgesic agent; Z88.8 Allergy status to other drugs, medicaments and biological substances
CPT/HCPCS: 36415; 80307; 81001; 99284

== ENCOUNTER 2020-03-20 05:16 | Emergency (ER) | payer OTHER ==
[~2020-03-20] VITALS: Ht 154.9 cm; Wt 53.8 kg
[2020-03-20 05:16] VITALS: BP 91/61
[2020-03-20 06:08] LABS: BARBITURATES NEG (NEG); BENZODIAZEPINES NEG (NEG); CANNABINOIDS NEG (NEG); COCAINE NEG (NEG); METHADONE NEG (NEG); OPIATES POS (NEG); PHENCYCLIDINE NEG (NEG)
--- NOTE | 2020-03-20 06:08 | PHYS DOC ---
Past History Past Medical History: Anxiety, Arthritis, Diabetes, GERD, STD Additional Past Medical Histor: drug-seeking behavior; hypoglycemia (MICKY JESUS DO) Past Surgical History: , Hysterectomy, Other Additional Past Surgical Histo: D&C (MICKY JESUS DO) Smoking: Cigarettes, Less than 1pk/day Alcohol Use: None Drug Use: Marijuana (MICKY JESUS DO) General Adult EDM: Chief Complaint: ABDOMINAL PAIN HPI: HPI: 39-year-old female presents with report of lower abdominal pain and low back pain which is been ongoing for the past 3 days. Patient reports she needs something for pain. Patient reports she was seen here on 03/08/2020 and diagnosed with trichomonas. Patient reports she was only prescribed antibiotics. Patient reports she started taking her antibiotics only 2 days ago. Denies any fever or chills. Reports she has been taking Tylenol without improvement. Denies trauma. Denies nausea/vomiting/diarrhea. (MICKY JESUS DO) Review of Systems: Review of Systems: Constitutional: Denies fever or chills Eyes: Denies redness or eye pain HENT: Denies nasal congestion or sore throat Respiratory: Denies cough or shortness of breath Cardiovascular: Denies chest pain or palpitations GI: Reports lower abdominal pain; denies nausea or vomiting : Denies dysuria or hematuria Musculoskeletal: Denies back pain or joint pain Integument: Denies rash or skin lesions Neurologic: Denies headache, focal weakness or sensory changes Complete systems were reviewed and found to be within normal limits, except as documented in this note. (MICKY JESUS DO) Allergies: Allergies: Allergies Coded Allergies Type Severity Reaction Last Updated Verified ibuprofen Allergy Unknown 03/08/20 Yes tramadol Allergy Unknown 03/08/20 Yes acetaminophen Adverse Reaction Intermediate abdominal pain 03/08/20 Yes lorazepam Adverse Reaction Intermediate 03/08/20 Yes (MICKY JESUS DO) Physical Exam: PE: Constitutional: Well developed, well nourished, anxious, non-toxic appearance HENT: Normocephalic, atraumatic Eyes: Conjunctiva normal, no discharge Neck: Normal range of motion, no tenderness, supple Lungs & Thorax: No respiratory distress, equal chest rise and fall Abdomen: Soft, suprapubic tenderness, no guarding/rebound tenderness/distention Skin: Warm, dry, no erythema, no rash Back: No tenderness, no CVA tenderness Extremities: No tenderness, ROM intact, no edema Neurologic: Alert and oriented X 3, no focal deficits noted Psychologic: Affect normal, judgment normal (MICKY JESUS DO) Current Patient Data: Vital Signs: Vital Signs Date Time Temp Pulse Resp B/P (MAP) Pulse Ox O2 Delivery O2 Flow Rate FiO2 03/20/20 05:16 97.6 92 16 91/61 (71) 99 Room Air (MICKY JESUS DO) EKG: EKG: [] (MICKY JESUS DO) Radiology/Procedures: Radiology/Procedures: [] (MICKY JESUS DO) Course & Med Decision Making: Course & Med Decision Making Pertinent Lab studies reviewed. (See chart for details) Patient presents with report of suprapubic abdominal pain x3 days. History of recent diagnosis of trichomonas for which she had delayed taking antibiotic therapy for. Patient reports she has been taking Tylenol without improvement. History of drug-seeking behavior. Patient reports she has not taken any narcotic pain medication within the last 2 weeks. 0600- Signout given to Dr. Whittington for further evaluation and final disposition. Discussed current findings and plan with patient, who acknowledges understanding and agreement. (MICKY JESUS DO) Course & Med Decision Making I received signout at shift change by Dr. Jesus. Patient is a 39-year-old (gave to twins, 1 SAB, one child is now ), presents to the ED with complaints of lower abdominal pain and low back pain, reports she has had this pain for 2 months. History difficult due to pts' cooperation. States she was diagnosed at the [facility] 2 months ago with trichomonas and was prescribed Keflex which she started yesterday. Does report dysuria. States she is currently on her menses and "it might be menstrual cramps." Had unprotected intercourse 2 months ago. States she took 1000 mg of Tylenol at 1 AM, cannot take ibuprofen and causes hives and is requesting a stronger pain medication. Denies any traumas, falls or assault. No associated dysparenia or abnormal vaginal discharge/odor. Pt reports she's only here for pain medicine. EMR was reviewed by myself. Pt has a history of drug seeking behavior. Pt initially falling asleep during my exam and I had to ask her to wake up or stand up to obtain a history. Pt does not appear to be in any distress. Many inconsistencies with her history/timeline of "trich" diagnosis/treatment. Pt iinitially reported she was treated at [place] but discharge info has prescription for omeprazole, no wet prep resulted. Pt also stated she was diagnosed at the [facility] and not prescribed any medications, then later retracted and stated she was prescribed keflex. Ktracs performed by Dr. Jesus-pt recieves clonazepam every 7 days, last hydrocodone prescription was in December 2019. Patient's drug screen is positive for opiates. Urinalysis shows no RBCs, no blood, no signs of infection. I recommended that pt have a pelvic exam and testing for GC and trich. test pending. I explained to patient that I am happy to treat her pain but need to find the underlying cause-that I was concerned for life-threatening processes listed below. I offered alternatives to narcotics, suggested muscle relaxers to start with. Pt refused any further medical evaluations/treatment/workup unless she receive a stronger pain medication, is requests opiods (had hydrocodone and oxycodone on 03/08/20 visit). Pt with [facility] and notified RN that she was leaving the ed. Life threatening processes were not ruled out due to pts' autonomy and further refusal of care. Patient would not wait for discharge instructions or follow-up information. Life/limb-threatening differential includes but is not limited to, aortic dissection, aortic aneurysm, acute coronary syndrome, surgical abdomen (appendicitis, cholecystitis, ischemic bowel, strangulated hernia, etc), bowel obstruction or volvulus, bladder outlet obstruction, gastrointestinal bleeding, inflammatory bowel disease, peptic ulcer disease, sepsis, diverticular disease, ureterolithiasis, nephrolithiasis, ovarian torsion, ectopic , vaginal hemorrhage, or genitourinary infection. The patient has decided to leave our facility against medical advice. I have assessed patient's ability to make informed decision and feel the patient has the capacity to comprehend information regarding the current medical condition and appreciates the impact of the disease or condition and the consequences of various options for treatment, including foregoing treatment. The patient possesses the ability to evaluate all treatment options, comparing the risks and benefits of each option, communicate his or her choice in a consistent manner over time, and is able to make rational choices. I explained to the patient further testing, treatment, and evaluation I would like to perform in the emergency department visit as well as any possible alternatives that can be accomplished in a timely manner. I have outlined the possible risks of foregoing any or all of these interventions and the patient understands and acknowledges that the decision to leave may result in undesirable consequences such as , permanent disability, and/or loss of current lifestyle. Even though leaving AMA is not ideal, I have instructed the patient to follow any discharge instructions given, take any medications prescribed, and resume care as soon as possible with another provider. This conversation was witnessed by another member of the emergency department staff and we clearly communicated the patient is welcome to return anytime to continue care at our facility. (SARAH WHITTINGTON DO) Dragon Disclaimer: Dragon Disclaimer: This electronic medical record was generated, in whole or in part, using a voice recognition dictation system. (MICKY JESUS DO) Departure Departure: Impression: Primary Impression: Abdominal pain Qualified Codes: R10.30 - Lower abdominal pain, unspecified Additional Impression: Drug-seeking behavior Disposition: AMA/ELOPED/LWBS Condition: STABLE Referrals: TEODORA VILLALPANDO MD (PCP) MICKY JESUS DO Mar 20, 2020 06:08 SARAH WHITTINGTON DO Mar 20, 2020 07:51
[2020-03-20 06:09] LABS: BACTERIA,URINE 0 /HPF (0-FEW); BILIRUBIN,URINE NEG (NEG); CLARITY,URINE CLEAR; COLOR,URINE YELLOW; GLUCOSE,URINE NEG (NEG); NITRITE,URINE NEG (NEG); RBC,URINE 0 /HPF (0-2); SQUAMOUS EPITHELIAL CELL,UR FEW /LPF; UROBILINOGEN,URINE 0.2 mg/dL (0.2 mg/dL); WBC,URINE 0 /HPF (0-4)
[2020-03-20 06:11] LABS: AMPHETAMINE/METHAMPHETAMINE NEG (NEG)
[2020-03-22 01:13] LABS: CHLAMYDIA PROBE Negative (Negative)
== END 2020-03-20 06:58 | disposition left against medical advice (07) ==
LOC: ER 05:16
DX: R10.30 Lower abdominal pain, unspecified (principal); Z76.5 Malingerer [conscious simulation]; M19.90 Unspecified osteoarthritis, unspecified site; E11.9 Type 2 diabetes mellitus without complications; K21.9 Gastro-esophageal reflux disease without esophagitis; Z90.710 Acquired absence of both cervix and uterus; F17.210 Nicotine dependence, cigarettes, uncomplicated; F12.10 Cannabis abuse, uncomplicated; Z88.6 Allergy status to analgesic agent; Z98.890 Other specified postprocedural states; Z88.8 Allergy status to other drugs, medicaments and biological substances
CPT/HCPCS: 36415; 80307; 81001; 87491; 87591; 99283

== ENCOUNTER 2020-05-02 05:02 | Emergency (ER) | payer OTHER ==
[~2020-05-02] VITALS: Ht 154.9 cm; Wt 55.4 kg
--- NOTE | 2020-05-02 06:14 | PHYS DOC ---
Past History Past Medical History: Anxiety, Arthritis, Diabetes, GERD, STD Additional Past Medical Histor: drug-seeking behavior; hypoglycemia Past Surgical History: , Hysterectomy, Other Additional Past Surgical Histo: D&C Smoking: Cigarettes, Less than 1pk/day Alcohol Use: None Drug Use: Marijuana General Adult EDM: Chief Complaint: EARACHE/EAR PAIN HPI: HPI: History obtained from patient. Patient is a 40-year-old female with no reported past medical history presents with complaint of right earache. She states she has had the earache intermittently for "quite some time." She notes she was most recently seen by her primary care physician 5 days ago. States he was prescribed a course of amoxicillin and Tylenol 3. She states she has run out of her Tylenol 3. She states the pain seemed to worsen overnight. Denies any new trauma or injury. Denies any pain behind her ear. Denies any bulging behind her ear. Denies vomiting or fever. Denies any dental pain. Denies headaches or vomiting. States that her primary care physician, Dr. Oneill states she needs to see an criminal research specialist. She states that the criminal research specialist is reportedly coming to the primary care physician's office to evaluate her. She states she is not sure of when. Denies neck pain. Denies allergies to pain medications. No other complaints. Review of Systems: Review of Systems: Constitutional: Denies fever or chills Eyes: Denies change in visual acuity HENT: Positive for earache Respiratory: Denies cough or shortness of breath Cardiovascular: Denies chest pain or edema GI: Denies abdominal pain, nausea, vomiting, bloody stools or diarrhea : Denies dysuria Musculoskeletal: Denies back pain or joint pain Integument: Denies rash Neurologic: Denies headache, focal weakness or sensory changes Endocrine: Denies polyuria or polydipsia Lymphatic: Denies swollen glands Psychiatric: Denies depression or anxiety Allergies: Allergies: Allergies Coded Allergies Type Severity Reaction Last Updated Verified ibuprofen Allergy Unknown 03/08/20 Yes tramadol Allergy Unknown 03/08/20 Yes acetaminophen Adverse Reaction Intermediate abdominal pain 03/08/20 Yes lorazepam Adverse Reaction Intermediate 03/08/20 Yes Physical Exam: PE: Constitutional: Well developed, well nourished, no acute distress, non-toxic appearance. [] HENT: Normocephalic, atraumatic, bilateral external ears normal, oropharynx moist, no oral exudates, nose normal. Nonbulging mastoid region. No tenderness to external ear manipulation. [] Eyes: PERRLA, EOMI, conjunctiva normal, no discharge. [] Neck: Normal range of motion, no tenderness, supple, no stridor. [] Cardiovascular:Heart rate regular rhythm, no murmur [] Lungs & Thorax: Bilateral breath sounds clear to auscultation [] Abdomen: soft, no tenderness, no masses, no pulsatile masses. [] Skin: Warm, dry, no erythema, no rash. [] Back: No tenderness, no CVA tenderness. [] Extremities: No tenderness, no cyanosis, no clubbing, ROM intact, no edema. [] Neurologic: Alert and oriented X 3, normal motor function, normal sensory function, no focal deficits noted. [] Psychologic: Affect normal, judgement normal, mood normal. [] EKG: EKG: [] Radiology/Procedures: Radiology/Procedures: [] Heart Score: Risk Factors: Risk Factors: DM, Current or recent (<one month) smoker, HTN, HLP, family history of CAD, obesity. Risk Scores: Score 0 - 3: 2.5% MACE over next 6 weeks - Discharge Home Score 4 - 6: 20.3% MACE over next 6 weeks - Admit for Clinical Observation Score 7 - 10: 72.7% MACE over next 6 weeks - Early Invasive Strategies Course & Med Decision Making: Course & Med Decision Making Pertinent Labs and Imaging studies reviewed. (See chart for details) [] Patient is a 40-year-old female who presents with complaint of chronic right earache. Initial vital signs unremarkable. Exam overall reassuring. On chart review patient does have history of drug-seeking behavior. I did offer the patient multiple nonnarcotic pain medications. She initially told me she do not have any drug allergies however after offering her multiple medication she states that she has an allergy to ibuprofen and Toradol causes her to shake. I did offer her multiple nonnarcotic medications to which the patient declined. I also explained that I felt the patient's Tylenol 3 codeine refill needs to come from her primary care physician. Encourage her to continue to take her amoxicillin. Patient is declining any further work-up or medication at this time. She did leave prior to receiving discharge paperwork. Og Disclaimer: Og Disclaimer: This electronic medical record was generated, in whole or in part, using a voice recognition dictation system. Departure Departure: Impression: Primary Impression: Ear ache Disposition: 01 DC HOME SELF CARE/HOMELESS Condition: STABLE Referrals: SARAH CHAU (PCP) MIRELLA NOGUERA DO May 02, 2020 06:14
[2020-05-02 06:18] VITALS: BP 92/65
== END 2020-05-02 06:15 | disposition home or self-care (01) ==
LOC: ER 05:02
DX: H92.01 Otalgia, right ear (principal); F41.9 Anxiety disorder, unspecified; M19.90 Unspecified osteoarthritis, unspecified site; E11.9 Type 2 diabetes mellitus without complications; K21.9 Gastro-esophageal reflux disease without esophagitis; F17.210 Nicotine dependence, cigarettes, uncomplicated; Z88.6 Allergy status to analgesic agent; Z88.8 Allergy status to other drugs, medicaments and biological substances
CPT/HCPCS: 99282

== ENCOUNTER 2020-05-15 08:44 | Emergency (ER) | payer OTHER ==
[~2020-05-15] VITALS: Ht 157.5 cm; Wt 58.0 kg
[2020-05-15 08:58] VITALS: BP 91/61
--- NOTE | 2020-05-15 09:10 | PHYS DOC ---
Past History Past Medical History: Hypertension Additional Past Medical Histor: drug-seeking behavior; hypoglycemia Past Surgical History: , Hysterectomy, Other Additional Past Surgical Histo: D&C Smoking: Cigarettes, Less than 1pk/day Additional Smoking Information: STATES NEVER A SMOKER Alcohol Use: None Additional Alcohol Information: STATES NO ALCOHOL Drug Use: Marijuana Adult General Chief Complaint Chief Complaint: EARACHE/EAR PAIN HPI HPI Patient is a 40 year old female who presents to the emergency room complaining of chronic right ear pain. She has had this pain for several months and has been seen here in the emergency room requesting pain medicine for it previously. She states that she last saw her primary care doctor for this a week ago. She is currently on antibiotics for it. She states she has been taking ibuprofen and Tylenol at home alternating however they have not helped. When asked if she is allergic to these medicines patient states she is unsure. Patient initially stated she did not know when she was going to see the specialist and then stated that she was going to see them next week and just needs enough pain medicine to get through until then. Pain is unchanged from prior. She does not have any hearing loss. She states she is taking her medications as prescribed. Review of Systems Review of Systems Complete ROS is negative unless otherwise documented in HPI Allergies Allergies Allergies Coded Allergies Type Severity Reaction Last Updated Verified ibuprofen Allergy Unknown 03/08/20 Yes tramadol Allergy Unknown 03/08/20 Yes acetaminophen Adverse Reaction Intermediate abdominal pain 03/08/20 Yes lorazepam Adverse Reaction Intermediate 03/08/20 Yes Physical Exam Physical Exam General: Awake, alert, NAD. Well Nourished, well hydrated. Cooperative HEENT: Atraumatic, EOMI, PERRL, airway patent, moist oral mucosa, right TM with mild erythema, no effusion, no external inflammation or drainage Neck: Supple, trachea midline Respiratory: CTA bilaterally, normal effort, no wheezing/crackles CV: RRR, no murmur, cap refill <2 GI: Soft, nondistended, nontender, no masses MSK: No obvious deformities Skin: Warm, dry, intact Neuro: A&O x3, speech NL, sensory and motor grossly intact, no focal deficits Psych: Normal affect, normal mood, not suicidal or homicidal Current Patient Data Vital Signs Vital Signs Date Time Temp Pulse Resp B/P (MAP) Pulse Ox O2 Delivery O2 Flow Rate FiO2 05/15/20 08:58 97.5 77 15 91/61 (37) 98 EKG EKG [] Radiology/Procedures Radiology/Procedures [] Heart Score Risk Factors: Risk Factors: DM, Current or recent (<one month) smoker, HTN, HLP, family history of CAD, obesity. Risk Scores: Risk Factors: DM, Current or recent (<one month) smoker, HTN, HLP, family history of CAD, obesity. Course & Med Decision Making Course & Med Decision Making Pertinent Labs and Imaging studies reviewed. (See chart for details) Patient is a 40-year-old female presents to the emergency room complaining of chronic right ear pain. Patient made several requests for narcotic pain medicine while here in the emergency room. We discussed several times that this has been an ongoing chronic issue that needs to be followed up with the primary care physician as well as I do not feel comfortable doing narcotic pain medicine for mild ear infection. Patient does have ibuprofen and Tylenol listed as her allergies, however she states she is taking these at home without any difficulty. I did offer her ibuprofen or Tylenol for pain relief. Patient initially was very upset and continued to request narcotic pain medicine. She states that she has taken narcotics for it and it is helped in the past. After reiterating narcotics would not be given today, patient did agree to take Tylenol. She is already on antibiotics at home. She has a follow-up with ENT. I have recommended that she keeps her follow-up appointments and continues to follow with primary care physician for this. Patient's test results and vitals while in the ED were fully reviewed and discussed with the patient. Patient is stable and at this time does not need admission to the hospital. We have discussed strict return precautions and the importance of following up with [facility] Primary Care Physician. Patient stated understanding and was given an opportunity to ask any questions. Patient is in agreement with plan. Dragon Disclaimer Dragon Disclaimer This electronic medical record was generated, in whole or in part, using a voice recognition dictation system. Departure Departure: Impression: Primary Impression: Otitis Additional Impression: Ear ache Disposition: 01 DC HOME SELF CARE/HOMELESS Condition: STABLE Referrals: SARAH CHAU (PCP) Patient Instructions: Serous Otitis Media Problem Qualifiers ABHI GONZALEZ MD May 15, 2020 09:10
[2020-05-15] MEDS ORDERED: ACETAMINOPHEN 500 MG TABLET PO ONE (09:15)
== END 2020-05-15 09:19 | disposition home or self-care (01) ==
LOC: ER 08:44
DX: H66.91 Otitis media, unspecified, right ear (principal); I10 Essential (primary) hypertension; F17.210 Nicotine dependence, cigarettes, uncomplicated; Z88.6 Allergy status to analgesic agent; Z88.8 Allergy status to other drugs, medicaments and biological substances
CPT/HCPCS: 99282

== ENCOUNTER 2020-08-26 06:01 | Emergency (ER) | payer OTHER ==
[~2020-08-26] VITALS: Ht 157.5 cm; Wt 58.0 kg
[~2020-08-26 06:01] MED LIST changes: -CLIN300C8 PO; +CLIN300C9 PO
[2020-08-26 06:05] VITALS: BP 102/72
[2020-08-26] MEDS ORDERED: ONDA4TAB7 PO (06:25)
--- NOTE | 2020-08-26 06:26 | PHYS DOC ---
Past History Past Medical History: Hypertension Additional Past Medical Histor: drug-seeking behavior; hypoglycemia,"seizures", ulcers Past Surgical History: , Hysterectomy, Other Additional Past Surgical Histo: D&C Smoking: Cigarettes, Less than 1pk/day Alcohol Use: None Drug Use: Marijuana Adult General Chief Complaint Chief Complaint: PAIN ON URINATION [facility] HPI Patient is a 40-year-old female with a known past medical hypertension, substance abuse disorder and drug-seeking behavior presenting the emergency department complaining of suprapubic pain. Patient states that yesterday she was seen by her primary care practitioner diagnosed her with a urinary tract infection and gave her nitrofurantoin and Pyridium. Patient states she been taking this with the Tylenol and had no relief of symptoms and asking for something stronger for pain. Patient states she is unable to take NSAIDs bec ause of history of ulcers. Patient denies any fever, chills, nausea, vomiting, dizziness or lightheadedness. Review of Systems Review of Systems Constitutional: Denies fever or chills [] Eyes: Denies change in visual acuity, redness, or eye pain [] HENT: Denies nasal congestion or sore throat [] Respiratory: Denies cough or shortness of breath [] Cardiovascular: No additional information not addressed in HPI [] GI: Denies abdominal pain, nausea, vomiting, bloody stools or diarrhea [] : Denies dysuria or hematuria [] Musculoskeletal: Denies back pain or joint pain [] Integument: Denies rash or skin lesions [] Neurologic: Denies headache, focal weakness or sensory changes [] Endocrine: Denies polyuria or polydipsia [] All other systems were reviewed and found to be within normal limits, except as documented in this note. Allergies Allergies Allergies Coded Allergies Type Severity Reaction Last Updated Verified Penicillins Allergy Unknown 08/26/20 Yes ibuprofen Allergy Unknown 08/26/20 Yes tramadol Allergy Unknown 08/26/20 Yes acetaminophen Adverse Reaction Intermediate abdominal pain 08/26/20 Yes lorazepam Adverse Reaction Intermediate 08/26/20 Yes Physical Exam Physical Exam Constitutional: Well developed, well nourished, no acute distress, non-toxic appearance. [] HENT: Normocephalic, atraumatic, bilateral external ears normal, oropharynx mois t, no oral exudates, nose normal. [] Eyes: PERRLA, EOMI, conjunctiva normal, no discharge. [] Neck: Normal range of motion, no tenderness, supple, no stridor. [] Cardiovascular:Heart rate regular rhythm, no murmur [] Lungs & Thorax: Bilateral breath sounds clear to auscultation [] Abdomen: Bowel sounds normal, soft, no tenderness, no masses, no pulsatile masses. [] Skin: Warm, dry, no erythema, no rash. [] Back: No tenderness, no CVA tenderness. [] Extremities: No tenderness, no cyanosis, no clubbing, ROM intact, no edema. [] Neurologic: Alert and oriented X 3, normal motor function, normal sensory function, no focal deficits noted. [] Psychologic: Affect normal, judgement normal, mood normal. [] Current Patient Data Vital Signs Vital Signs Date Time Temp Pulse Resp B/P (MAP) Pulse Ox O2 Delivery O2 Flow Rate FiO2 08/26/20 06:05 98.2 76 16 102/72 (82) 100 Room Air EKG EKG [] Radiology/Procedures Radiology/Procedures [] Heart Score C/O Chest Pain: No Risk Factors: Risk Factors: DM, Current or recent (<one month) smoker, HTN, HLP, family history of CAD, obesity. Risk Scores: Risk Factors: DM, Current or recent (<one month) smoker, HTN, HLP, family history of CAD, obesity. Course & Med Decision Making Course & Med Decision Making Pertinent Labs and Imaging studies reviewed. (See chart for details) 40-year-old female presenting to emergency department complaint of suprapubic pain likely secondary to urinary tract infection. Explained to the patient that especially given her history of substance abuse it does not be safer in her best interest to give her any narcotic pain medication at this time and that the typical treatment for this would be antibiotics with NSAIDs and Tylenol. Patient became upset and stated that she did not want anything other than pain medication. Patient later said that she did feel nauseous and was asking for something to help with her nausea. Patient refused any other labs or work-up Dragon Disclaimer Dragon Disclaimer This electronic medical record was generated, in whole or in part, using a voice recognition dictation system. Departure Departure: Impression: Primary Impression: Urinary tract infection Disposition: 01 DC HOME SELF CARE/HOMELESS Condition: GOOD Referrals: SARAH CHAU (PCP) Patient Instructions: Urinary Tract Infection Additional Instructions: EMERGENCY DEPARTMENT GENERAL DISCHARGE INSTRUCTIONS Thank you for coming to [facility] Emergency Department (ED) today and trusting us with you care. We trust that you had a positive experience in our Emergency Department. If you wish to speak to the department management, you may call the Director at [phone]. YOUR FOLLOW UP INSTRUCTIONS ARE FOLLOWS: 1. Do you have a private Doctor? If you do not have a private doctor, please ask for a resource list of physicians or clinics that may be able to assist you with follow up care. 2. The Emergency Physicain has interpreted your x-rays. The X-Ray specialist will also review them. If there is a change in the findings, you will be notified in 48 hours when at all possible. 3. A lab test or culture has been done, your results will be reviewed and you will be notified if you need a change in treatment. ADDITIONAL INSTRUCTIONS AND INFORMATION: 1. Your care today has been supervised by a physician who is specially trained in emergency care. Many problems require more than one evaluation for a complete diagnosis and treatment. We recommend that you schedule your follow up appointment as recommended to ensure complete treatment of you illness or injury. If you are unable to obtain follow up care and continue to have a problem, or if your condition worsens, we recommend that you return to the ED. 2. We are not able to safely determine your condition over the phone nor are we able to give sound medical advice over the phone. For these safety reasons, if you call for medical advice we will ask you to come to the ED for further evaluation. 3. If you have any questions regarding these discharge instructions please call the ED at [phone]. SAFETY INFORMATION: In the interest of safety, wellness, and injury prevention; we encourage you to wear your sealbelt, if you smoke; quite smoking, and we encourage family to use a protective helmet for bicycling and other sporting events that present an increased risk for head injury. IF YOUR SYMPTOMS WORSEN OR NEW SYMPTOMS DEVELOP, OR YOU HAVE CONCERNS ABOUT YOUR CONDITION; OR IF YOUR CONDITION WORSENS WHILE YOU ARE WAITING FOR YOUR FOLLOW UP APPOINTMENT; EITHER CONTACT YOUR PRIMARY CARE DOCTOR, THE PHYSICIAN WHOSE NAME AND NUMBER YOU WERE GIVEN, OR RETURN TO THE ED IMMEDIATELY. Scripts Ondansetron Hcl (ZOFRAN) 4 Mg Tablet 1 TAB PO PRN Q6HRS PRN for NAUSEA, #6 TAB Prov: EDUARDO ELIZALDE MD 08/26/20 EDUARDO ELIZALDE MD Aug 26, 2020 06:25
[2020-08-26] MEDS ORDERED: ONDANSETRON ODT 4 MG TAB.RAPDIS PO ONE (06:30)
[2020-08-26] MEDS ORDERED: ONDANSETRON ODT 4 MG TAB.RAPDIS ONE (06:30)
== END 2020-08-26 06:34 | disposition home or self-care (01) ==
LOC: ER 06:01
DX: N39.0 Urinary tract infection, site not specified (principal); I10 Essential (primary) hypertension; F17.210 Nicotine dependence, cigarettes, uncomplicated; F12.10 Cannabis abuse, uncomplicated; Z98.890 Other specified postprocedural states; Z90.710 Acquired absence of both cervix and uterus; Z88.0 Allergy status to penicillin; Z88.6 Allergy status to analgesic agent; Z88.8 Allergy status to other drugs, medicaments and biological substances
CPT/HCPCS: 99283; Q0162

== ENCOUNTER 2021-03-15 07:50 | Emergency (ER) | payer OTHER ==
[~2021-03-15] VITALS: Ht 157.5 cm; Wt 59.2 kg
[~2021-03-15 07:50] MED LIST changes: +CLIN-95 PO; -CLIN300C9 PO; +ONDA4TAB7 PO
[2021-03-15 08:00] VITALS: BP 114/83
[2021-03-15] MEDS ORDERED: ORPHENADRINE CITRATE 60 MG/2 ML VIAL. IM ONE (08:15)
[2021-03-15] MEDS ORDERED: METH-560 PO (09:07)
--- NOTE | 2021-03-15 09:09 | PHYS DOC ---
Past History Past Medical History: Hypertension Additional Past Medical Histor: drug-seeking behavior; hypoglycemia,"seizures", ulcers Past Surgical History: , Hysterectomy, Other Additional Past Surgical Histo: D&C Smoking: Cigarettes, Less than 1pk/day Alcohol Use: None Drug Use: Marijuana General Adult EDM: Chief Complaint: MULTIPLE COMPLAINTS HPI: HPI: 40-year-old female past medical history of anxiety, presents the ED with complaints of left shoulder and right knee pain stating she fell on the stairs approximately 2 months ago and has had no relief with [id number] pain medication. Is requesting a Tylenol#3. Denies any loss of consciousness, dysuria, hematuria, abnormal vaginal discharge itching or odor. No associated fever, joint swelling, rash, neck pain or neurologic deficits. Is not any blood thinners. No history of IV drug use. States she takes clonidine for her anxi ety. Review of Systems: Review of Systems: Constitutional: Denies fever or chills Eyes: Denies change in visual acuity HENT: Denies nasal congestion or sore throat Respiratory: Denies cough or shortness of breath Cardiovascular: Denies chest pain or edema GI: Denies nausea or vomiting : Denies dysuria or hematuria Musculoskeletal: Denies back pain or flank pain Integument: Denies rash or diaphoresis Neurologic: Denies headache, focal weakness or sensory changes Psychiatric: Denies depression or anxiety Current Medications: Current Meds: Current Medications Medications (Trade) Dose Ordered Sig/Thang Start Time Stop Time Status Last Admin Dose Admin Orphenadrine Citrate (Norflex) 60 mg 1X ONCE 03/15/21 08:15 03/15/21 08:22 DC 03/15/21 08:31 60 MG Allergies: Allergies: Allergies Coded Allergies Type Severity Reaction Last Updated Verified Penicillins Allergy Unknown 03/15/21 Yes ibuprofen Allergy Unknown 03/15/21 Yes tramadol Allergy Unknown 03/15/21 Yes hydrocodone Adverse Reaction Unknown 03/15/21 Yes Physical Exam: PE: Constitutional: Well developed, well nourished, no acute distress, non-toxic appearance. HENT: Normocephalic, atraumatic, Eyes: EOMI, conjunctiva normal, no discharge. Neck: Normal range of motion, supple, Cardiovascular: S1/2 present, regular rhythm Lungs & Thorax: Speaking in full sentences, bilateral equal chest rise, no tachypnea or increased work of breathing Abdomen: soft, no tenderness, Skin: Warm, dry, no erythema, no rash, cap refill less than 1 second Back: No tenderness, no CVA tenderness, Extremities: No reproducible tenderness, no cyanosis, no lower extremity edema, patient with full range of motion of both shoulders and both k [id number]-[id number] joints, median/radial/ulnar/axillary nerve sensation intact, equal muscle strength bilaterally, bends knee w/o distress-no hot or warm joints Neurologic: Alert and oriented X 3, normal motor function, normal sensory function, no focal deficits noted. [] Psychologic: Affect normal, judgement normal, mood normal. [] Current Patient Data: Vital Signs: Vital Signs Date Time Temp Pulse Resp B/P (MAP) Pulse Ox O2 Delivery O2 Flow Rate FiO2 03/15/21 08:00 97.7 52 16 114/83 (93) 100 EKG: EKG: [] Radiology/Procedures: Radiology/Procedures: IMAGING REPORT Signed PATIENT: CIRA SINGH: [id number] : 1980 LOCATION: ER AGE: 40 SEX: F EXAM STATUS: REG ER ORD. PHYSICIAN: SARAH WHITTINGTON DO REASON: pain PROCEDURE: SHOULDER 2+V LEFT Examination: 2 views of the left shoulder HISTORY: History of left shoulder pain COMPARISON: None available FINDINGS: The humerus head is within the glenoid. There is no acute fracture or dislocatio n identified. IMPRESSION: No acute osseous findings. Electronically signed by: Walker Andre MD (03/15/2021 9:21 AM) [id number] DICTATED AND SIGNED BY: WALKER ANDRE MD DATE: 03/15/21917 CC: SARAH CHAU; SARAH WHITTINGTON DO ~MTH0 0 IMAGING REPORT Signed PATIENT: CIRA SINGH: [id number] : 1980 LOCATION: ER AGE: 40 SEX: F EXAM STATUS: REG ER ORD. PHYSICIAN: VOHS,SARAH M DO REASON: pain PROCEDURE: KNEE RIGHT 3V EXAM: Right knee, 3 views. HISTORY: Pain. COMPARISON: None. FINDINGS: 3 views of the right knee are obtained. There is mild medial compartment spurring. There is a moderate right knee effusion. There is no fracture, dislocation or subluxation. IMPRESSION: 1. Moderate right knee effusion. 2. Mild medial compartment osteoarthritis of the right knee. Electronically signed by: Sameera Aquino MD (03/15/2021 9:18 AM) [id number] DICTATED AND SIGNED BY: SAMEERA AQUINO MD DATE: 03/15/21916 CC: SARAH CHAU; SARAH WHITTINGTON DO ~MTH0 0 Heart Score: C/O Chest Pain: No Risk Factors: Risk Factors: DM, Current or recent (<one month) smoker, HTN, HLP, family history of CAD, obesity. Risk Scores: Score 0 - 3: 2.5% MACE over next 6 weeks - Discharge Home Score 4 - 6: 20.3% MACE over next 6 weeks - Admit for Clinical Observation Score 7 - 10: 72.7% MACE over next 6 weeks - Early Invasive Strategies Course & Med Decision Making: Course & Med Decision Making Pertinent Labs and Imaging studies reviewed. (See chart for details) Concern for left shoulder and right knee pain with no obvious trauma on physical exam. Patient is well-known to this emergency department for drug-seeking behavior. I do not suspect any traumatic injury, septic knee joint or life- threatening process. Will discharge home with strict ED return precautions were given for severe pain, neurologic deficits, repeat injury, joint swelling or warmth. Encouraged urgent outpatient follow-up with PMD and orthopedic surgery for definitive management. Life-threatening processes were considered but are low suspicion at this time, given history, physical exam and ED workup. Pt was educated on all prescription medications and adverse effects. All patient's questions were answered and pt was stable at time of discharge. Life/limb-threatening differential includes but is not limited to, avascular necrosis, septic arthritis, malignancy, compartment syndrome, fracture/ligamentous injury/overuse, decompression sickness, seronegative spondyloarthropathies, trauma including dislocation/fracture, Lyme disease, lupus, arthritis differentials, gout/pseudogout or decompression sickness. I have spoken with the patient and/or caregivers. I explained the patient's condition, diagnoses and treatment plan based on the information available to me at this time. I have answered the patient and/or caregiver's questions and addressed any concerns. The patient and/or caregivers have a good understanding of patient's diagnosis, condition and treatment plan as can be expected at this point. Vital signs have been stable. Patient's condition is stable and appropriate for discharge from the emergency department. Patient will pursue further outpatient evaluation with primary care physician or other designated or consulting physician as outlined in the discharge instructions. The patient and/or caregivers are agreeable to this plan of care and follow-up instructions have been explained in detail. The patient and/or caregivers have received these instructions in written form and have expressed an understanding of the discharge instructions. The patient and/or caregivers are aware that any significant change of condition or worsening of symptoms should prompt immediate return to this or the closest emergency department or call to 055. Og Disclaimer: Og Disclaimer: This electronic medical record was generated, in whole or in part, using a voice recognition dictation system. Departure Departure: Impression: Primary Impression: Left shoulder pain Additional Impressions: Osteoarthritis of right knee Knee effusion, right Disposition: 01 HOME / SELF CARE / HOMELESS Condition: STABLE Referrals: SARAH CHAU (PCP) Follow up with your pcp in 1-2 days or [facility] [phone] OR [facility] [phone] Patient Instructions: Knee Effusion, Knee Sprain, Osteoarthritis Additional Instructions: FOLLOW UP WITH ORTHOPEDICS: [facility] [address] [facility], [address] [address] EMERGENCY DEPARTMENT GENERAL DISCHARGE INSTRUCTIONS Thank you for coming to [facility] (ED) today and trusting us with you care. We trust that you had a positivie experience in our Emergency Department. If you wish to speak to the department management, you may call the director at [phone]. YOUR FOLLOW UP INSTRUCTIONS ARE FOLLOWS: 1. Do you have a private Doctor? If you do not have a private doctor, please ask for a resource list of physicians or clinics that may be able to assist you with follow up care. 2. The Emergency Physician has interpreted your x-rays. The X-Ray specialist will also review them. If there is a change in the findings, you will be notified in 48 hours when at all possible. 3. A lab test or culture has been done, your results will be reviewed and you will be notified if you need a change in treatment. ADDITIONAL INSTRUCTIONS AND INFORMATION: 1. Your care today has been supervised by a physician who is specially trained in emergency care. Many problems require more than one evaluation for a complete diagnosis and treatment. We recommend that you schedule your follow up appointment as recommended to ensure complete treatment of you illness or injury. If you are unable to obtain follow up care and continue to have a problem, or if your condition worsens, we recommend that you return to the ED. 2. We are not able to safely determine your condition over the phone nor are we able to give sound medical advice over the phone. For these safety reasons, if you call for medical advice we will ask you to come to the ED for further evaluation. 3. If you have any questions regarding these discharge instructions please call the ED at [phone]. SAFETY INFORMATION: In the interest of safety, wellness, and injury prevention; we encourage you to wear your sealbelt, if you smoke; quite smoking, and we encourage family to use a protective helmet for bicycling and other sporting events that present an increased risk for head injury. IF YOUR SYMPTOMS WORSEN OR NEW SYMPTOMS DEVELOP, OR YOU HAVE CONCERNS ABOUT YOUR CONDITION; OR IF YOUR CONDITION WORSENS WHILE YOU ARE WAITING FOR YOUR FOLLOW UP APPOINTMENT; EITHER CONTACT YOUR PRIMARY CARE DOCTOR, THE PHYSICIAN WHOSE NAME AND NUMBER YOU WERE GIVEN, OR RETURN TO THE ED IMMEDIATELY. Scripts Methocarbamol (METHOCARBAMOL) 750 Mg Tablet 750 MG PO TID for pain, #15 TAB Prov: SARAH WHITTINGTON DO 03/15/21 SARAH WHITTINGTON DO Mar 15, 2021 09:09
--- NOTE | 2021-03-15 09:20 | RAD ---
EXAM: Right knee, 3 views. HISTORY: Pain. COMPARISON: None. FINDINGS: 3 views of the right knee are obtained. There is mild medial compartment spurring. There is a moderate right knee effusion. There is no fracture, dislocation or subluxation. IMPRESSION: 1. Moderate right knee effusion. 2. Mild medial compartment osteoarthritis of the right knee. Electronically signed by: Sameera Solis MD (03/15/2021 9:18 AM) [id number]
--- NOTE | 2021-03-15 09:23 | RAD ---
Examination: 2 views of the left shoulder HISTORY: History of left shoulder pain COMPARISON: None available FINDINGS: The humerus head is within the glenoid. There is no acute fracture or dislocation identified. IMPRESSION: No acute osseous findings. Electronically signed by: Walker Andre MD (03/15/2021 9:21 AM) [id number]
== END 2021-03-15 10:30 | disposition home or self-care (01) ==
LOC: ER 07:50
DX: M25.512 Pain in left shoulder (principal); M17.11 Unilateral primary osteoarthritis, right knee; F17.210 Nicotine dependence, cigarettes, uncomplicated; F12.10 Cannabis abuse, uncomplicated; I10 Essential (primary) hypertension; Z90.710 Acquired absence of both cervix and uterus
CPT/HCPCS: 73030; 73562; 96372; 99284; J2360

== ENCOUNTER 2021-03-20 09:06 | Emergency (ER) | payer OTHER ==
[~2021-03-20] VITALS: Ht 157.5 cm; Wt 59.2 kg
[~2021-03-20 09:06] MED LIST changes: +METH-560 PO
--- NOTE | 2021-03-20 09:13 | PHYS DOC ---
Past History Past Medical History: Hypertension Additional Past Medical Histor: drug-seeking behavior; hypoglycemia,"seizures", ulcers Past Surgical History: , Hysterectomy, Other Additional Past Surgical Histo: D&C Smoking: Cigarettes, Less than 1pk/day Alcohol Use: None Drug Use: Marijuana Adult General Chief Complaint Chief Complaint: SEIZURE HPI HPI Patient is a 40-year-old female presenting via EMS for seizures. This is an acute on chronic issue. She has history of seizures of varying etiology, typica lly at due to abusing other individuals prescription medications. It was reported that she had a witnessed tonic-clonic seizure that lasted less than 1 minute in length at 0715 hrs. this morning. She was postictal and subsequently suffered another seizure 1 hour later of similar duration that self resolved but given to experienced seizures, family contacted EMS for transfer to our facility. On arrival, patient was found to be hemodynamically stable, nonseizing and appeared postictal. She had no immediate complaints, denies any known tongue trauma or losing control of bladder or bowels. On arrival, patient continues to have no immediate complaints. She admits history of seizure and denies any ongoing prophylactic medications. She has never seen a neurologist in the outpatient setting Review of Systems Review of Systems Fourteen body systems of review of systems have been reviewed. See HPI for pertinent positives and negative responses, other blood all other systems are ne gative, non-pertinent or non-contributory Allergies Allergies Allergies Coded Allergies Type Severity Reaction Last Updated Verified Penicillins Allergy Unknown 03/15/21 Yes ibuprofen Allergy Unknown 03/15/21 Yes tramadol Allergy Unknown 03/15/21 Yes hydrocodone Adverse Reaction Unknown 03/15/21 Yes Physical Exam Physical Exam Constitutional: Well developed, well nourished, no acute distress, non-toxic appearance. Smells of cigarettes HENT: Normocephalic, atraumatic, bilateral external ears normal, oropharynx moist with grossly poor dentition globally, no oropharyngeal or tongue trauma, no oral exudates, nose normal. Eyes: PERRLA, EOMI, conjunctiva normal, no discharge. Neck: Normal range of motion, no tenderness, supple, no stridor. Cardiovascular: Heart rate regular, sinus rhythm, no murmurs rubs or gallops Lungs & Thorax: Bilateral breath sounds clear to auscultation Abdomen: Bowel sounds normal, soft, no tenderness, no masses, no pulsatile masses. Nonsurgical abdomen, no peritoneal signs Skin: Warm, dry, no erythema, no rash. Back: No tenderness, no CVA tenderness. Extremities: No tenderness, no cyanosis, no clubbing, ROM intact, no edema. Neurologic: Alert and oriented X 3, cranial nerves II through XII intact, normal motor & sensory function, no focal deficits noted. Psychologic: Affect normal, judgement normal, mood normal. Current Patient Data Vital Signs Vital Signs Date Time Temp Pulse Resp B/P (MAP) Pulse Ox O2 Delivery O2 Flow Rate FiO2 03/20/21 09:09 99.0 100 18 117/92 (100) 92 Vital Signs Date Time Temp Pulse Resp B/P (MAP) Pulse Ox O2 Delivery O2 Flow Rate FiO2 03/20/21 09:09 99.0 100 18 117/92 (100) 92 Lab Results Laboratory Tests Test 03/20/21 09:27 White Blood Count 9.0 x10^3/uL Red Blood Count 4.73 x10^6/uL Hemoglobin 15.4 g/dL Hematocrit 46.2 % Mean Corpuscular Volume 98 fL Mean Corpuscular Hemoglobin 33 pg Mean Corpuscular Hemoglobin Concent 33 g/dL Red Cell Distribution Width 13.2 % Platelet Count 323 x10^3/uL Neutrophils (%) (Auto) 87 % Lymphocytes (%) (Auto) 8 % Monocytes (%) (Auto) 4 % Eosinophils (%) (Auto) 0 % Basophils (%) (Auto) 1 % Neutrophils # (Auto) 7.8 x10^3uL Lymphocytes # (Auto) 0.7 x10^3/uL Monocytes # (Auto) 0.4 x10^3/uL Eosinophils # (Auto) 0.0 x10^3/uL Basophils # (Auto) 0.1 x10^3/uL Sodium Level 138 mmol/L Potassium Level 4.5 mmol/L Chloride Level 104 mmol/L Carbon Dioxide Level 21 mmol/L Anion Gap 13 Blood Urea Nitrogen 7 mg/dL Creatinine 1.0 mg/dL Estimated GFR (Cockcroft-Gault) 73.9 BUN/Creatinine Ratio 7 Glucose Level 102 mg/dL Calcium Level 9.7 mg/dL Magnesium Level 2.8 mg/dL Total Bilirubin 0.2 mg/dL Aspartate Amino Transf (AST/SGOT) 15 U/L Alanine Aminotransferase (ALT/SGPT) 22 U/L Alkaline Phosphatase 107 U/L Troponin I Quantitative < 0.017 ng/mL Total Protein 8.8 g/dL Albumin 4.4 g/dL Albumin/Globulin Ratio 1.0 Ethyl Alcohol Level < 10 mg/dL Current Medications Medications (Trade) Dose Ordered Sig/Thang Route PRN Reason Start Time Stop Time Status Last Admin Dose Admin Sodium Chloride 1,000 ml @ 1,000 mls/hr 1X ONCE IV 03/20/21 09:30 03/20/21 10:29 03/20/21 09:53 Sodium Chloride 1,000 ml @ 1,000 mls/hr 1X ONCE IV 03/20/21 09:30 03/20/21 10:29 EKG EKG EKG ordered and interpreted by myself at 0923 hrs. is sinus rhythm at 93 bpm, unremarkable intervals, no axis deviation, no obvious ischemic findings, no STEMI Radiology/Procedures Radiology/Procedures [] Heart Score C/O Chest Pain: No HEART Score for Chest Pain: HEART Score for Chest Pain Response (Comments) Value History Slighlty/Non-Suspicious 0 ECG Normal 0 Age < 45 0 Risk Factors 1 or 2 Risk Factors 1 Troponin < Normal Limit 0 Total 1 Risk Factors: Risk Factors: DM, Current or recent (<one month) smoker, HTN, HLP, family history of CAD, obesity. Risk Scores: Risk Factors: DM, Current or recent (<one month) smoker, HTN, HLP, family hist ory of CAD, obesity. Course & Med Decision Making Course & Med Decision Making ABCs unremarkable HPI physical exam and comprehensive ER work-up nonconcerning for any emergent or surgical issues Patient unwilling to give urine sample to evaluate for infection and/or drug abuse for which she has history of. I suspect potential seizure today was due t o this? I disclosed all findings fully with patient. I also contacted on-call neurologist attending and reviewed case. He recommends starting Keppra 500 mg twice daily, advising her to complete work-up as indicated in ER with close outpatient follow-up I have updated patient on all findings in ER that were nonemergent in nature. I disclosed discussion with neurologist. Patient still unwilling to give urine sample. Joint decision made since patient is at baseline AAO x3 ambulatory without any concerns to discharge home with Keppra 500mg twice daily Strict return precautions discussed with good understanding by patient, all questions and concerns addressed prior to ER departure Og Disclaimer Og Disclaimer This electronic medical record was generated, in whole or in part, using a voice recognition dictation system. Departure Departure: Impression: Primary Impression: Seizure Disposition: HOME / SELF CARE / HOMELESS Condition: STABLE Referrals: SARAH CHAU (PCP) BROOKE ANTHONY MD Patient Instructions: Seizure, Adult Additional Instructions: It is unclear what caused your seizure. You should follow up with your primary care physician and also neurology given your longstanding history of seizures with poor control. Make sure to take your medications as prescribed. Return to the ED if you develop increased seizures, more than one seizure in a row without returning to normal, seizure longer than 5 minutes, or any other new or concerning symptoms. You should not drive or operate machinery until you are cleared by a neurologist or your medicine doctor. Scripts Levetiracetam (KEPPRA) 500 Mg Tablet 1 TAB PO BID for seizures for 30 Days, #60 TAB 0 Refills Prov: JO MERCADO DO 03/20/21 JO MERCADO DO Mar 20, 2021 09:13
[2021-03-20] MEDS ORDERED: IV NORMAL SALINE 1,000ML 1,000 ML IV ONE ×2 (09:30)
[2021-03-20 09:45] LABS: BASO # 0.1 x10^3/uL (0.0-0.2); BASO % 1 % (0-3); EOS % 0 % (0-3); HEMATOCRIT 46.2 % (36.0-47.0); HEMOGLOBIN 15.4 g/dL (12.0-15.5); LYMPH # 0.7 x10^3/uL (1.0-4.8); LYMPH % 8 % (24-48); MEAN CORPUSCULAR HEMOGLOBIN 33 pg (25-35); MEAN CORPUSCULAR HGB CONC 33 g/dL (31-37); MEAN CORPUSCULAR VOLUME 98 fL (79-100); MONO # 0.4 x10^3/uL (0.0-1.1); MONO % 4 % (0-9); NEUT # 7.8 x10^3uL (1.8-7.7); NEUT % 87 % (31-73); PLATELET COUNT 323 x10^3/uL (140-400); RED BLOOD COUNT 4.73 x10^6/uL (3.50-5.40); RED CELL DISTRIBUTION WIDTH 13.2 % (11.5-14.5)
[2021-03-20 09:56] LABS: CALCIUM 9.7 mg/dL (8.5-10.1); GFR 73.9; POTASSIUM 4.5 mmol/L (3.5-5.1)
[2021-03-20 10:02] LABS: ALBUMIN 4.4 g/dL (3.4-5.0); MAGNESIUM 2.8 mg/dL (1.8-2.4); TOTAL BILIRUBIN 0.2 mg/dL (0.2-1.0); TOTAL PROTEIN 8.8 g/dL (6.4-8.2)
[2021-03-20] MEDS ORDERED: LEVE500T56 PO (10:18)
[2021-03-20] MEDS ORDERED: levETIRAcetam 500 MG TABLET PO SCH (11:00)
[2021-03-20 12:00] VITALS: BP 139/88
--- NOTE | 2021-03-21 01:07 | EKG ---
[address] [address] Test Date: 2021-03-20 Test Time: 09:17:35 Pat Name: DIANNE SINGH Department: Room: Gender: F Academic Physician: ANDREA : [id number] Requested By: JO MERCADO Order Number: [id number] Reading MD: Measurements Intervals [place] Rate: 93 P: 1 IA: 138 QRS: 56 QRSD: 78 T: 27 QT: 372 QTc: 465 Interpretive Statements SINUS RHYTHM LOW LIMB LEAD VOLTAGE QRS(T) CONTOUR ABNORMALITY CONSIDER ANTEROSEPTAL MYOCARDIAL DAMAGE POSSIBLY ABNORMAL ECG RI6.02 No previous ECG available for comparison
== END 2021-03-20 12:00 | disposition home or self-care (01) ==
LOC: ER 09:06
DX: R56.9 Unspecified convulsions (principal)
CPT/HCPCS: 36415; 80053; 83605; 83735; 84484; 85025; 93005; 96360; 96361; 99284; G0480; J7030

== ENCOUNTER 2021-04-09 10:57 | Emergency (ER) | payer OTHER ==
[~2021-04-09] VITALS: Ht 154.9 cm; Wt 56.8 kg
[~2021-04-09 10:57] MED LIST changes: +LEVE500T56 PO
[2021-04-09 12:06] VITALS: BP 102/69
--- NOTE | 2021-04-09 12:12 | PHYS DOC ---
Past History Past Medical History: Hypertension Additional Past Medical Histor: drug-seeking behavior; hypoglycemia, ulcers Past Surgical History: Hysterectomy Additional Past Surgical Histo: D&C Smoking: Cigarettes, Less than 1pk/day Alcohol Use: None Drug Use: Marijuana Adult General Chief Complaint Chief Complaint: ANXIETY/PANIC ATTACK HPI HPI Patient is a 41-year-old female with a history of anxiety who presents with a chief complaint of anxiety/panic attack. States that she has a couple of days monthly and usually takes Klonopin for this but is out of her Klonopin and does not have an appointment with the [facility] for 2 more weeks. Denies any recent traumas, travels, illnesses, fevers, chest pain, shortness of breath, abdominal pain, nausea, vomiting. States that her panic attack has resolved but she is worried she can have another one. Review of Systems Review of Systems Review of systems otherwise unremarkable except noted in HPI Allergies Allergies Allergies Coded Allergies Type Severity Reaction Last Updated Verified Penicillins Allergy Unknown 03/15/21 Yes ibuprofen Allergy Unknown 03/15/21 Yes tramadol Allergy Unknown 03/15/21 Yes hydrocodone Adverse Reaction Unknown 03/15/21 Yes Physical Exam Physical Exam Constitutional: Well developed, well nourished, no acute distress, non-toxic appearance. [] HENT: Normocephalic, atraumatic, bilateral external ears normal, oropharynx moist, no oral exudates, nose normal. [] Eyes: conjunctiva normal, no discharge. [] Neck: Normal range of motion, no tenderness, supple, no stridor. [] Cardiovascular:Heart rate regular rhythm, no murmur [] Lungs & Thorax: Bilateral breath sounds clear to auscultation [] Skin: Warm, dry, no erythema, no rash. [] Extremities: No tenderness, no cyanosis, no clubbing, ROM intact, no edema. [] Neurologic: Alert and oriented X 3, normal motor function, normal sensory function, able to sit, stand and walk without issue, no focal deficits noted. [] Psychologic: Affect normal, judgement normal, mood normal. [] Current Patient Data Vital Signs Vital Signs Date Time Temp Pulse Resp B/P (MAP) Pulse Ox O2 Delivery O2 Flow Rate FiO2 04/09/21 12:06 98.2 71 16 102/69 (80) 100 Room Air 0 EKG EKG [] Radiology/Procedures Radiology/Procedures [] Heart Score C/O Chest Pain: No Risk Factors: Risk Factors: DM, Current or recent (<one month) smoker, HTN, HLP, family history of CAD, obesity. Risk Scores: Risk Factors: DM, Current or recent (<one month) smoker, HTN, HLP, family history of CAD, obesity. Course & Med Decision Making Course & Med Decision Making Patient is a 41-year-old female with a history of anxiety and panic attacks who presents post panic attack Vital signs not concerning. Physical exam noted above. Started on diazepam in the ED. Discussed all findings with patient. Given diazepam dose for home as rescue. Advised to call the [facility] as soon as she leaves the emergency department to update on ED visit and request a post ER follow-up visit as soon as possible to discuss anxiety and panic attack management. Gave return precautions to the ED. Patient grateful, verbalized understanding and agreed with plan of discharge. [] Dragon Disclaimer Dragon Disclaimer This electronic medical record was generated, in whole or in part, using a voice recognition dictation system. Departure Departure: Impression: Primary Impression: Panic attack Disposition: 01 HOME / SELF CARE / HOMELESS Condition: GOOD Referrals: SARAH CHAU (PCP) Patient Instructions: Anxiety and Panic Attacks Additional Instructions: Thank you for coming into the emergency department today and allowing us to take care of you. Please read the attached information carefully to go over things we discussed. You are given a diazepam for your anxiety here in the emergency department and sent home with one for rescue. Please use that as we discussed as needed. It is very important that you call both your primary care physician and the [facility] as soon as you leave the emergency department to update on your ED visit see if you can get a follow-up appointment as soon as possible to discuss management of anxiety and panic attacks at home. Please come back with new or concerning symptoms as discussed. ZANE ALEJANDRO MD Apr 09, 2021 12:12
[2021-04-09] MEDS ORDERED: diazePAM 5 MG TABLET. PO ONE (12:30)
== END 2021-04-09 12:43 | disposition home or self-care (01) ==
LOC: ER 10:57
DX: F41.0 Panic disorder [episodic paroxysmal anxiety] (principal); I10 Essential (primary) hypertension; F17.210 Nicotine dependence, cigarettes, uncomplicated; Z88.0 Allergy status to penicillin; Z88.6 Allergy status to analgesic agent; Z90.710 Acquired absence of both cervix and uterus
CPT/HCPCS: 99283-25

== ENCOUNTER 2021-04-18 13:58 | Emergency (ER) | payer OTHER ==
[~2021-04-18] VITALS: Ht 154.9 cm; Wt 56.8 kg
[2021-04-18 14:14] VITALS: BP 118/85
--- NOTE | 2021-04-18 14:32 | PHYS DOC ---
Past History Past Medical History: Anxiety, Hypertension Additional Past Medical Histor: drug-seeking behavior; hypoglycemia, ulcers (ANTONIA DOMINGO Rebeca PROCUREMENT OFFICER) Past Surgical History: Hysterectomy Additional Past Surgical Histo: D&C (ANTONIA DOMINGO Rebeca PROCUREMENT OFFICER) Smoking: Cigarettes, Less than 1pk/day Alcohol Use: None Drug Use: Marijuana (ANTONIA DOMINGO Rebeca PROCUREMENT OFFICER) Adult General Chief Complaint Chief Complaint: ANXIETY/PANIC ATTACK HPI HPI Patient is a 41-year-old female patient presented to the ED today complaining of an anxiety attack. Patient states she woke up this morning with anxiety symptoms. Denies any suicidal or homicidal ideations. She states she usually takes clonazepam 1 mg twice a day for her symptoms. She states she ran out of the medicine in March and did not think she will need it until today. (ANTONIA DOMINGO Rebeca PROCUREMENT OFFICER) Review of Systems Review of Systems Constitutional: Denies fever or chills [] Eyes: Denies change in visual acuity, redness, or eye pain [] HENT: Denies nasal congestion or sore throat [] Respiratory: Denies cough or shortness of breath [] Cardiovascular: No additional information not addressed in HPI [] GI: Denies abdominal pain, nausea, vomiting, bloody stools or diarrhea [] : Denies dysuria or hematuria [] Musculoskeletal: Denies back pain or joint pain [] Integument: Denies rash or skin lesions [] Neurologic: Denies headache, focal weakness or sensory changes [] Psych: Reports anxiety attack All other systems were reviewed and found to be within normal limits, except as documented in this note. (JOSE LANTONIA PROCUREMENT OFFICER) Allergies Allergies Allergies Coded Allergies Type Severity Reaction Last Updated Verified Penicillins Allergy Unknown 04/09/21 Yes ibuprofen Allergy Unknown 03/15/21 Yes tramadol Allergy Unknown 03/15/21 Yes hydrocodone Adverse Reaction Unknown 03/15/21 Yes (RDANTONIA Hallman PROCUREMENT OFFICER) Physical Exam Physical Exam Constitutional: Well developed, well nourished, no acute distress, non-toxic appearance. [] HENT: Normocephalic, atraumatic, bilateral external ears normal, oropharynx moist, no oral exudates, nose normal. [] Eyes: PERRLA, EOMI, conjunctiva normal, no discharge. [] Neck: Normal range of motion, no tenderness, supple, no stridor. [] Cardiovascular:Heart rate regular rhythm, no murmur [] Lungs & Thorax: Bilateral breath sounds clear to auscultation [] Abdomen: Bowel sounds normal, soft, no tenderness, no masses, no pulsatile masses. [] Skin: Warm, dry, no erythema, no rash. [] Back: No tenderness, no CVA tenderness. [] Extremities: No tenderness, no cyanosis, no clubbing, ROM intact, no edema. [] Neurologic: Alert and oriented X 3, normal motor function, normal sensory function, no focal deficits noted. [] Psychologic: Affect normal, judgement normal, mood normal. [] (ANTONIA DOMINGO APRN) Current Patient Data Vital Signs Vital Signs Date Time Temp Pulse Resp B/P (MAP) Pulse Ox O2 Delivery O2 Flow Rate FiO2 04/18/21 14:14 97 18 118/85 (96) 96 (ANTONIA DOMINGO APRN) EKG EKG [] (ANTONIA DOMINGO APRN) Radiology/Procedures Radiology/Procedures [] (ANTONIA DOMINGO APRN) Heart Score C/O Chest Pain: N/A Risk Factors: Risk Factors: DM, Current or recent (<one month) smoker, HTN, HLP, family hist ory of CAD, obesity. Risk Scores: Risk Factors: DM, Current or recent (<one month) smoker, HTN, HLP, family history of CAD, obesity. (ANTONIA DOMINGO APRN) Course & Med Decision Making Course & Med Decision Making Pertinent Labs and Imaging studies reviewed. (See chart for details) This is a 41-year-old female patient presenting to the ED today complaining of anxiety attack that occurred this morning. Currently calm. She states she uses clonazepam 1 mg twice a day for anxiety. She ran out of the medicine in March and states she did not think she will need it until today. Patient is not suicidal or homicidal. I talked to her about the importance of getting clonazepam from her PCP as compared to getting it from the ED. I gave her a short-term supply of clonazepam. Recommended getting therapy for anxiety as we ll through [facility] (ANTONIA DOMINGO APRN) Course & Med Decision Making I was the Attending physician on the above date of service of this patient. This patient was evaluated, examined, treated, and dispositioned from the emergency department by the mid-level practitioner. Although I was working at the time , no assistance was requested. Electronically signed, Jo Mercado DO (JO MERCADO DO) Og Disclaimer Og Disclaimer This electronic medical record was generated, in whole or in part, using a voice recognition dictation system. (ANTONIA DOMINGO APRN) Departure Departure: Impression: Primary Impression: Encounter for medication refill Additional Impression: Anxiety and depression Disposition: HOME / SELF CARE / HOMELESS Condition: STABLE Referrals: SARAH NEGRON (PCP) Follow-up on Tuesday Patient Instructions: Anxiety and Panic Attacks, [id number] Additional Instructions: You were evaluated in the emergency room for anxiety. We highly recommend you follow-up with the [facility] for therapy as well as your primary care doctor. Scripts Clonazepam (KLONOPIN) 1 Mg Tablet 1 TAB PO BID, #14 TAB 1 Refill Prov: ANTONIA DOMINGO APRN 04/18/21 Problem Qualifiers ANTONIA DOMINGO APRN Apr 18, 2021 14:32 JO MERCADO DO Apr 19, 2021 06:56
[2021-04-18] MEDS ORDERED: CLON1TAB PO (14:35)
== END 2021-04-18 14:44 | disposition home or self-care (01) ==
LOC: ER 13:58
DX: F41.9 Anxiety disorder, unspecified (principal); Z76.0 Encounter for issue of repeat prescription; I10 Essential (primary) hypertension; F17.210 Nicotine dependence, cigarettes, uncomplicated; Z88.0 Allergy status to penicillin; Z88.5 Allergy status to narcotic agent; Z88.8 Allergy status to other drugs, medicaments and biological substances
CPT/HCPCS: 99281

== ENCOUNTER 2021-04-28 11:42 | Emergency (ER) | payer OTHER ==
[~2021-04-28] VITALS: Ht 154.9 cm; Wt 56.8 kg
[~2021-04-28 11:42] MED LIST changes: +CLON1TAB PO
[2021-04-28 11:49] VITALS: BP 109/86
[2021-04-28] MEDS ORDERED: KETOROLAC 60 MG/2 ML VIAL. IM ONE (12:15)
--- NOTE | 2021-04-28 12:44 | PHYS DOC ---
Past History Past Medical History: Anxiety, Hypertension Additional Past Medical Histor: drug-seeking behavior; hypoglycemia, ulcers (MARTIR ADEN) Past Surgical History: Hysterectomy Additional Past Surgical Histo: D&C (MARTIR ADEN) Smoking: Cigarettes, Less than 1pk/day Alcohol Use: None Drug Use: Benzodiazepine, Marijuana (MARTIR ADEN) General Adult EDM: Chief Complaint: HEADACHE HPI: HPI: Patient is a 41 year old female well-known to the department who presents with complaints of headache since yesterday. Patient was seen at [facility] urgent care today, who recommended that she visit the emergency department. She reports her pain is in her central forehead and has not changed since onset. She also states "my ovaries hurt." She does report a history of ovarian cysts. Patient has additional complaint of anxiety, for which she requests clonazepam. Patient denies fever, chills, weakness, vision changes, lateralization of pain, photophobia, phonophobia, abdominal pain, NVD, dysuria, hematuria. (MARTIR ADEN) Review of Systems: Review of Systems: ROS negative except as mentioned in HPI. (MARTIR ADEN) Current Medications: Current Meds: Current Medications Medications (Trade) Dose Ordered Sig/Thang Start Time Stop Time Status Last Admin Dose Admin Ketorolac Tromethamine (Toradol Im) 60 mg 1X ONCE 04/28/21 12:15 04/28/21 12:16 UNV (MARTIR ADEN) Allergies: Allergies: Allergies Coded Allergies Type Severity Reaction Last Updated Verified Penicillins Allergy Unknown 04/09/21 Yes ibuprofen Allergy Unknown 03/15/21 Yes tramadol Allergy Unknown 03/15/21 Yes hydrocodone Adverse Reaction Unknown 03/15/21 Yes (MARTIR ADEN) Physical Exam: PE: Constitutional: Well developed, well nourished, no acute distress, non-toxic appearance. HENT: Normocephalic, atraumatic, bilateral external ears normal, oropharynx moist, missing several dentition, nose normal. Eyes: PERRLA, EOMI, conjunctiva normal, no discharge. Neck: Normal range of motion, no tenderness, supple, no stridor. Cardiovascular: Heart rate regular rhythm, no murmur. Lungs & Thorax: Bilateral breath sounds clear to auscultation. Neurologic: Alert and oriented x4, no focal deficits noted. (MARTIR ADEN) Current Patient Data: Vital Signs: Vital Signs Date Time Temp Pulse Resp B/P (MAP) Pulse Ox O2 Delivery O2 Flow Rate FiO2 04/28/21 11:49 98.2 76 16 109/86 (94) 100 Room Air (MARTIR ADEN) Heart Score: C/O Chest Pain: No (MARTIR ADEN) Course & Med Decision Making: Course & Med Decision Making Pertinent Labs and Imaging studies reviewed. (See chart for details) Patient provided with IM ketorolac for headache and ovarian pain. Discussed with patient that because the medication is not administered orally, she will not have gastric ulcer exacerbation from IM ketorolac. Patient understands and is agreeable to treatment plan. She will be discharged home with strict instruction to follow with [facility] for further [facility] care, and valuate need for anxiolytic medication. Patient understands and is agreeable to discharge plan. (MARTIR ADEN) Dragon Disclaimer: Dragon Disclaimer: This electronic medical record was generated, in whole or in part, using a voice recognition dictation system. (MARTIR ADEN) Departure Departure: Impression: Primary Impression: Headache Qualified Codes: R51.9 - Headache, unspecified Disposition: 01 HOME / SELF CARE / HOMELESS Condition: STABLE Referrals: SARAH NEGRON (PCP) Patient Instructions: Anxiety and Panic Attacks, [id number], General Headache Without Cause, [id number] Additional Instructions: Please visit the guidance center immediately after leaving the department for evaluation of your anxiety and possible anxiolytic prescription. As discussed, benzodiazepines should be used for short term and sporadic anxiety breakthrough. You should obtain consistent follow up for therapy and/or daily medication. Attending Signature Attending Signature I have reviewed the PA/SCHOOL PATROL's note and plan of care. I was available for consultation as needed during the patient's visit in the emergency department. I agree with the clinical impression, plan, and disposition. (MICKY JESUS DO) MARTIR ADEN Apr 28, 2021 12:44 MICKY JESUS DO Apr 28, 2021 13:55
== END 2021-04-28 12:46 | disposition home or self-care (01) ==
LOC: ER 11:42
DX: R51.9 Headache, unspecified (principal); F41.9 Anxiety disorder, unspecified; I10 Essential (primary) hypertension; F17.210 Nicotine dependence, cigarettes, uncomplicated; Z88.0 Allergy status to penicillin; Z88.6 Allergy status to analgesic agent; Z88.5 Allergy status to narcotic agent
CPT/HCPCS: 96372; 99283; J1885

== ENCOUNTER 2021-04-28 15:41 | Emergency (ER) | payer OTHER ==
[~2021-04-28] VITALS: Ht 154.9 cm; Wt 56.8 kg
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
[2021-04-28] MEDS ORDERED: hydrOXYzine HCL 25 MG TABLET PO PRN (16:30)
[2021-04-28 17:20] VITALS: BP 103/68
== END 2021-04-28 17:20 | disposition home or self-care (01) ==
LOC: ER 15:41
DX: F41.9 Anxiety disorder, unspecified (principal); I10 Essential (primary) hypertension; F17.210 Nicotine dependence, cigarettes, uncomplicated; Z88.0 Allergy status to penicillin; Z88.6 Allergy status to analgesic agent; Z88.5 Allergy status to narcotic agent
CPT/HCPCS: 99283

== ENCOUNTER 2021-06-08 13:12 | Emergency (ER) | payer OTHER ==
[~2021-06-08] VITALS: Ht 154.9 cm; Wt 56.8 kg
[2021-06-08] MEDS ORDERED: clonazePAM 1 MG TABLET PO ONE (14:30)
--- NOTE | 2021-06-08 14:38 | PHYS DOC ---
Past History Past Medical History: Anxiety, Hypertension Additional Past Medical Histor: drug-seeking behavior; hypoglycemia, ulcers Past Surgical History: Hysterectomy Additional Past Surgical Histo: D&C Smoking: Cigarettes, Less than 1pk/day Alcohol Use: None Drug Use: Benzodiazepine, Marijuana General Adult EDM: Chief Complaint: ANXIETY/PANIC ATTACK HPI: HPI: Patient is a 41-year-old female who presents to the emergency department for "panic attack". Patient reports that she started thinking about her family members dying and started having a panic attack. She took 0.5 mg of Xanax 4 hours ago to treat this. She follows up with the [facility] outpatient. She states she took her last Xanax today. She denies any suicidal or homicidal ideation. Review of Systems: Review of Systems: 14 body systems of the review of systems have been reviewed. See HPI for per tinent positive and negative responses, otherwise all other systems are negative, nonpertinent or noncontributory Current Medications: Current Meds: Current Medications Medications (Trade) Dose Ordered Sig/Thang Start Time Stop Time Status Last Admin Dose Admin Clonazepam (KlonoPIN) 1 mg 1X ONCE 06/08/21 14:30 06/08/21 14:33 DC Allergies: Allergies: Allergies Coded Allergies Type Severity Reaction Last Updated Verified Penicillins Allergy Unknown 06/08/21 Yes ibuprofen Allergy Unknown 06/08/21 Yes tramadol Allergy Unknown 06/08/21 Yes hydrocodone Adverse Reaction Unknown 06/08/21 Yes Physical Exam: PE: Constitutional: Well developed, well nourished, no acute distress, non-toxic appearance. [] HENT: Normocephalic, atraumatic, bilateral external ears normal, oropharynx moist, no oral exudates, nose normal. [] Eyes: PERRLA, EOMI, conjunctiva normal, no discharge. [] Neck: Normal range of motion, no tenderness, supple, no stridor. [] Cardiovascular:Heart rate regular rhythm, no murmur [] Lungs & Thorax: Bilateral breath sounds clear to auscultation [] Abdomen: Bowel sounds normal, soft, no tenderness, no masses, no pulsatile masses. [] Skin: Warm, dry, no erythema, no rash. [] Back: No tenderness, no CVA tenderness. [] Extremities: No tenderness, no cyanosis, no clubbing, ROM intact, no edema. [] Neurologic: Alert and oriented X 3, normal motor function, normal sensory function, no focal deficits noted. [] Psychologic: Affect normal, judgement normal, mood normal. [] EKG: EKG: [] Radiology/Procedures: Radiology/Procedures: [] Heart Score: C/O Chest Pain: N/A Risk Factors: Risk Factors: DM, Current or recent (<one month) smoker, HTN, HLP, family history of CAD, obesity. Risk Scores: Score 0 - 3: 2.5% MACE over next 6 weeks - Discharge Home Score 4 - 6: 20.3% MACE over next 6 weeks - Admit for Clinical Observation Score 7 - 10: 72.7% MACE over next 6 weeks - Early Invasive Strategies Course & Med Decision Making: Course & Med Decision Making Pertinent Labs and Imaging studies reviewed. (See chart for details) [] Patient presents to the emergency department for panic attacks that started today. She states that she took 0.5 mg of Xanax 4 hours ago and that was her last tablet. According to her K tracks, it appears that she was only taking clonazepam for her anxiety. Patient last filled clonazepam on April 24 and had a 7-day supply. Patient was given her dose of clonazepam in the emergency department and she is advised to follow-up with the guidance Center as she normally does. I discussed with patient all findings and diagnostic testing as well as the need to follow-up with PCP for further evaluation and treatment or return to the ER if any new or worsening symptoms. Strict return precautions were also discussed at length. Patient voiced understanding and agreement with the plan. Patient is hemodynamically stable at the time of disposition. Og Disclaimer: Og Disclaimer: This electronic medical record was generated, in whole or in part, using a voice recognition dictation system. Departure Departure: Impression: Primary Impression: Panic attack Disposition: HOME / SELF CARE / HOMELESS Condition: GOOD Referrals: SARAH NEGRON (PCP) Patient Instructions: Anxiety and Panic Attacks Additional Instructions: You were seen in the emergency department today for anxiety. You were treated with clonazepam. These follow-up with the guidance Center if you require any additional medication for your anxiety. Return to the emergency department if y ou develop worsening of your symptoms, suicidal or homicidal ideation. LOUISE LYNN MUSIC CATALOGUER Jun 08, 2021 14:38
[2021-06-08 14:53] VITALS: BP 104/78
== END 2021-06-08 14:50 | disposition home or self-care (01) ==
LOC: ER 13:12
DX: F41.0 Panic disorder [episodic paroxysmal anxiety] (principal); I10 Essential (primary) hypertension; F17.210 Nicotine dependence, cigarettes, uncomplicated; Z88.0 Allergy status to penicillin; Z88.6 Allergy status to analgesic agent; Z88.5 Allergy status to narcotic agent
CPT/HCPCS: 99283

== ENCOUNTER 2021-06-21 15:44 | Emergency (ER) | payer OTHER ==
[~2021-06-21] VITALS: Ht 154.9 cm; Wt 56.8 kg
[2021-06-21 16:40] VITALS: BP 106/70
--- NOTE | 2021-06-21 16:55 | PHYS DOC ---
Past History Past Medical History: Anxiety, Hypertension Additional Past Medical Histor: HYPOGLYCEMIA, ULCERS (LOUISE LYNN APRN) Past Surgical History: , Hysterectomy, Other Additional Past Surgical Histo: D&C (LOUISE LYNN APRN) Smoking: Cigarettes, Less than 1pk/day Alcohol Use: None Drug Use: Benzodiazepine, Marijuana (LOUISE LYNN APRN) General Adult EDM: Chief Complaint: ANXIETY/PANIC ATTACK HPI: HPI: Patient is a 41-year-old female who presents to the emergency department for a panic attack that has been intermittent all day today. Patient reports that she has had a recent in her family and has had increased stress. She was seen in this emergency department on June 08 and was given a dose of Xanax and told to follow-up with the [facility] for her anxiety medication. She reports that she has followed up with the [facility] and they gave her prescriptions for depression medication but nothing for her anxiety. Patient denies suicidal/homicidal ideation, nausea, vomiting, cough, fevers, shortness of breath. (LOUISE LYNN APRN) Review of Systems: Review of Systems: Constitutional: negative unless reported in HPI Eyes: negative unless reported in HPI HENT: negative unless reported in HPI Respiratory: negative unless reported in HPI Cardiovascular: negative unless reported in HPI GI: negative unless reported in HPI : negative unless reported in HPI Musculoskeletal: negative unless reported in HPI Integument: negative unless reported in HPI Neurologic: negative unless reported in HPI Endocrine: negative unless reported in HPI Lymphatic: negative unless reported in HPI Psychiatric: negative unless reported in HPI (LOUISE LYNN APRN) Current Medications: Current Meds: Current Medications Medications (Trade) Dose Ordered Sig/Thang Start Time Stop Time Status Last Admin Dose Admin Clonazepam (KlonoPIN) 1 mg 1X PRN 06/21/21 17:00 (LOUISE LYNN APRN) Allergies: Allergies: Allergies Coded Allergies Type Severity Reaction Last Updated Verified Penicillins Allergy Unknown 06/08/21 Yes ibuprofen Allergy Unknown 06/08/21 Yes tramadol Allergy Unknown 06/08/21 Yes hydrocodone Adverse Reaction Unknown 06/08/21 Yes (LOUISE LYNN APRN) Physical Exam: PE: Constitutional: Well developed, well nourished, no acute distress, non-toxic appearance. [] HENT: Normocephalic, atraumatic, bilateral external ears normal, oropharynx moist, no oral exudates, nose normal. [] Eyes: PERRL, EOMI, conjunctiva normal, no discharge. [] Neck: Normal range of motion, no stridor Cardiovascular:Heart rate regular rhythm, no murmur [] Lungs & Thorax: Bilateral breath sounds clear to auscultation [] Abdomen: Bowel sounds normal, soft, no tenderness, no masses, no pulsatile masses. [] Skin: Warm, dry, no erythema, no rash. [] Back normal range of motion Extremities: No tenderness, no cyanosis, no clubbing, ROM intact, no edema. [] Neurologic: Alert and oriented X 3, normal motor function, normal sensory function, no focal deficits noted. [] Psychologic: Affect normal, judgement normal, mood normal. [] (LOUISE LYNN APRN) EKG: EKG: [] (LOUISE LYNN APRN) Radiology/Procedures: Radiology/Procedures: [] (LOUISE LYNN APRN) Heart Score: C/O Chest Pain: N/A Risk Factors: Risk Factors: DM, Current or recent (<one month) smoker, HTN, HLP, family history of CAD, obesity. Risk Scores: Score 0 - 3: 2.5% MACE over next 6 weeks - Discharge Home Score 4 - 6: 20.3% MACE over next 6 weeks - Admit for Clinical Observation Score 7 - 10: 72.7% MACE over next 6 weeks - Early Invasive Strategies (LOUISE LYNN APRN) Course & Med Decision Making: Course & Med Decision Making Pertinent Labs and Imaging studies reviewed. (See chart for details) [] Patient presents to the emergency department today for panic attack. Patient reports that she usually takes 1 mg of clonazepam but did not receive a prescription for her anxiety medication from the [facility]. Patient was given a dose of clonazepam in the emergency department and urged to follow-up with her primary care provider at the [facility] for any additional medication management for her anxiety. I discussed with patient all findings and diagnostic testing as well as the need to follow-up with PCP for further evaluation and treatment or return to the ER if any new or worsening symptoms. Strict return precautions were also discussed at length. Patient voiced understanding and agreement with the plan. Patient is hemodynamically stable at the time of disposition. (LOUISE LYNN APRN) Course & Med Decision Making Did not see or evaluate patient. Did not discuss patient with BOOK JOGGER. Agree with BOOK JOGGER's work-up and disposition per note. (ZANE ALEJANDRO MD) Dragon Disclaimer: Dragon Disclaimer: This electronic medical record was generated, in whole or in part, using a voice recognition dictation system. (LOUISE LYNN APRN) Departure Departure: Impression: Primary Impression: Panic attack Disposition: HOME / SELF CARE / HOMELESS Condition: GOOD Referrals: PCP,NO (PCP) Patient Instructions: Anxiety and Panic Attacks Additional Instructions: You were seen in the emergency department today for panic attack. You were given a dose of your clonazepam in the emergency department. If you require any additional anxiety medication management you need to follow-up with your [facility] care provider or the guidance Center. Return to the emergency department if you develop suicidal or homicidal ideation or any new or worsening concerns. LOUISE LYNN APRN Jun 21, 2021 16:54 ZANE ALEJANDRO MD Jun 21, 2021 17:54
[2021-06-21] MEDS ORDERED: clonazePAM 1 MG TABLET PO PRN (17:00)
== END 2021-06-21 17:10 | disposition home or self-care (01) ==
LOC: ER 15:44
DX: F41.0 Panic disorder [episodic paroxysmal anxiety] (principal); I10 Essential (primary) hypertension; F17.210 Nicotine dependence, cigarettes, uncomplicated; Z88.0 Allergy status to penicillin; Z88.6 Allergy status to analgesic agent; Z88.5 Allergy status to narcotic agent
CPT/HCPCS: 99283

== ENCOUNTER 2021-07-01 14:59 | Emergency (ER) | payer OTHER ==
[~2021-07-01] VITALS: Ht 154.9 cm; Wt 59.1 kg
[2021-07-01 15:32] VITALS: BP 136/95
--- NOTE | 2021-07-01 15:56 | PHYS DOC ---
Past History Past Medical History: Anxiety, Hypertension Additional Past Medical Histor: HYPOGLYCEMIA, ULCERS Past Surgical History: , Hysterectomy, Other Additional Past Surgical Histo: D&C Smoking: Cigarettes, Less than 1pk/day Alcohol Use: None Drug Use: Benzodiazepine, Marijuana Adult General Chief Complaint Chief Complaint: ANXIETY/PANIC ATTACK HPI HPI Patient is a 41-year-old female presenting for anxiety and panic attack. States this is a chronic issue and has been going on for years. She has not es tablished in an outpatient setting with a behavioral health provider. Cites increased social stressors but admits she is safe at home without any suicidal ideation and/or homicidal ideation. Reports she has taken clonazepam in the past but has been out of this for several years requesting refill today Review of Systems Review of Systems Fourteen body systems of review of systems have been reviewed. See HPI for pertinent positives and negative responses, other blood all other systems are negative, non-pertinent or non-contributory Allergies Allergies Allergies Coded Allergies Type Severity Reaction Last Updated Verified Penicillins Allergy Unknown 06/08/21 Yes ibuprofen Allergy Unknown 06/08/21 Yes tramadol Allergy Unknown 06/08/21 Yes hydrocodone Adverse Reaction Unknown 06/08/21 Yes Physical Exam Physical Exam Constitutional: Well developed, well nourished, appears older than stated age, no acute distress, non-toxic appearance. HENT: Normocephalic, atraumatic, bilateral external ears normal, oropharynx moist, no oral exudates, nose normal. Eyes: PERRLA, EOMI, conjunctiva normal, no discharge. Neck: Normal range of motion, no tenderness, supple, no stridor. Cardiovascular: Heart rate regular, sinus rhythm, no murmurs rubs or gallops Lungs & Thorax: Bilateral breath sounds clear to auscultation Abdomen: Bowel sounds normal, soft, no tenderness, no masses, no pulsatile masses. Nonsurgical abdomen, no peritoneal signs Skin: Warm, dry, no erythema, no rash. Back: No tenderness, no CVA tenderness. Extremities: No tenderness, no cyanosis, no clubbing, ROM intact, no edema. Neurologic: Alert and oriented X 3, grossly normal motor & sensory function, no focal deficits noted. Psychologic: Flat affect and mood Current Patient Data Vital Signs Vital Signs Date Time Temp Pulse Resp B/P (MAP) Pulse Ox O2 Delivery O2 Flow Rate FiO2 07/01/21 15:32 98.3 80 20 136/95 (109) 99 Room Air EKG EKG [] Radiology/Procedures Radiology/Procedures [] Heart Score C/O Chest Pain: No Risk Factors: Risk Factors: DM, Current or recent (<one month) smoker, HTN, HLP, family history of CAD, obesity. Risk Scores: Risk Factors: DM, Current or recent (<one month) smoker, HTN, HLP, family history of CAD, obesity. Course & Med Decision Making Course & Med Decision Making ABCs unremarkable HPI and physical exam nonconcerning for any emergent or surgical issues Patient here requesting clonazepam. There is confusion at first as patient gave fake name to registration, old account found and prior visits reviewed and patient with drug-seeking behavior Reports she has been out of clonazepam for years, KTRA reviewed showing most recent clonazepam prescription late April 2021. During time investigating this patient in hallway in no acute distress texting and talking on phone I discussed with patient little indication for benzodiazepine use given no acute anxiety and/or panic attack and otherwise well-appearing female. I offered hydroxyzine for as needed use in ER and outpatient use until she can be seen by behavioral health provider, she declined stating it never works for her. She continues to request clonazepam while in ER, I denied this request Ultimately, I disclosed no indication for benzodiazepine use and educated patient on importance of avoiding drug-seeking behavior as she lied about her name and prior medical history and attempt to obtain this medication. Patient discharged with behavioral health resources Og Disclaimer Og Disclaimer This electronic medical record was generated, in whole or in part, using a voice recognition dictation system. Departure Departure: Impression: Primary Impression: Encounter for medication refill Additional Impression: Drug-seeking behavior Disposition: HOME / SELF CARE / HOMELESS Condition: STABLE Referrals: PCP,GRACE (PCP) Patient Instructions: Anxiety and Panic Attacks Additional Instructions: You were seen in the ED for evaluation of anxiety. Anxiety is a serious medical condition with unfortunate effects on daily living. You should utilize the Behavior Health resources for further management of your symptoms. Problem Qualifiers JO MERCADO Jul 01, 2021 15:56
== END 2021-07-01 16:09 | disposition home or self-care (01) ==
LOC: ER 14:59
DX: Z76.5 Malingerer [conscious simulation] (principal); Z76.0 Encounter for issue of repeat prescription; F41.9 Anxiety disorder, unspecified; I10 Essential (primary) hypertension; F17.210 Nicotine dependence, cigarettes, uncomplicated; Z88.0 Allergy status to penicillin; Z88.6 Allergy status to analgesic agent; Z88.5 Allergy status to narcotic agent
CPT/HCPCS: 99281

== ENCOUNTER 2021-07-08 08:24 | Emergency (ER) | payer OTHER ==
[~2021-07-08] VITALS: Ht 154.9 cm; Wt 57.4 kg
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
[2021-07-08] MEDS: clonazePAM 1 MG TABLET PO STA (08:48)
[2021-07-08 09:27] VITALS: BP 109/79
== END 2021-07-08 09:27 | disposition home or self-care (01) ==
LOC: ER 08:24
DX: F41.0 Panic disorder [episodic paroxysmal anxiety] (principal); I10 Essential (primary) hypertension; F17.210 Nicotine dependence, cigarettes, uncomplicated; Z88.0 Allergy status to penicillin; Z88.5 Allergy status to narcotic agent; Z88.6 Allergy status to analgesic agent; Z88.8 Allergy status to other drugs, medicaments and biological substances
CPT/HCPCS: 99283

== ENCOUNTER 2021-07-12 06:17 | Emergency (ER) | payer OTHER ==
[~2021-07-12] VITALS: Ht 154.9 cm; Wt 57.4 kg
[2021-07-12] MEDS ORDERED: clonazePAM 1 MG TABLET PO STA (06:21)
[2021-07-12 06:24] VITALS: BP 111/80
--- NOTE | 2021-07-12 06:39 | PHYS DOC ---
Past History Past Medical History: Anxiety, Hypertension Additional Past Medical Histor: HYPOGLYCEMIA, ULCERS Past Surgical History: , Hysterectomy, Other Additional Past Surgical Histo: D&C Smoking: Cigarettes, Less than 1pk/day Alcohol Use: None Drug Use: Benzodiazepine, Marijuana General Adult EDM: Chief Complaint: ANXIETY/PANIC ATTACK HPI: HPI: 41-year-old female presents via EMS with anxiety and panic attack. The patient was just seen in the emergency room by myself for similar complaint couple of days ago. Patient is usually on clonazepam but has been out of it. She is seen at the [facility] but her next appointment is not for 3 weeks. Patient denies any chest pain or other complaints. This is just her anxiety. Review of Systems: Review of Systems: Constitutional: Denies fever or chills Eyes: Denies change in visual acuity HENT: Denies nasal congestion or sore throat Respiratory: Denies cough or shortness of breath Cardiovascular: Denies chest pain or edema GI: Denies abdominal pain, nausea, vomiting, bloody stools or diarrhea : Denies dysuria Musculoskeletal: Denies back pain or joint pain Integument: Denies rash Neurologic: Denies headache, focal weakness or sensory changes Endocrine: Denies polyuria or polydipsia Lymphatic: Denies swollen glands Psychiatric: anxiety Current Medications: Current Meds: Current Medications Medications (Trade) Dose Ordered Sig/Thang Start Time Stop Time Status Last Admin Dose Admin Clonazepam (KlonoPIN) 1 mg 1X STAT 07/12/21 06:21 07/12/21 06:26 DC 07/12/21 06:29 1 MG Allergies: Allergies: Allergies Coded Allergies Type Severity Reaction Last Updated Verified Penicillins Allergy Unknown 07/08/21 Yes ibuprofen Allergy Unknown 07/08/21 Yes tramadol Allergy Unknown 07/08/21 Yes hydrocodone Adverse Reaction Unknown 07/08/21 Yes Physical Exam: PE: Constitutional: Well developed, well nourished, no acute distress, non-toxic appearance. [] HENT: Normocephalic, atraumatic, bilateral external ears normal, oropharynx moist, no oral exudates, nose normal. [] Eyes: PERRLA, EOMI, conjunctiva normal, no discharge. [] Neck: Normal range of motion, no tenderness, supple, no stridor. [] Cardiovascular: Heart rate regular rhythm, no murmur [] Lungs & Thorax: Bilateral breath sounds clear to auscultation [] Abdomen: Bowel sounds normal, soft, no tenderness, no masses, no pulsatile masses. [] Skin: Warm, dry, no erythema, no rash. [] Back: No tenderness, no CVA tenderness. [] Extremities: No tenderness, no cyanosis, no clubbing, ROM intact, no edema. [] Neurologic: Alert and oriented X 3, normal motor function, normal sensory function, no focal deficits noted. [] Psychologic: Affect normal, judgement normal, mood anxious. [] Current Patient Data: Vital Signs: Vital Signs Date Time Temp Pulse Resp B/P (MAP) Pulse Ox O2 Delivery O2 Flow Rate FiO2 07/12/21 06:24 98.2 90 18 111/80 (90) Room Air EKG: EKG: [] Radiology/Procedures: Radiology/Procedures: [] Heart Score: C/O Chest Pain: N/A Risk Factors: Risk Factors: DM, Current or recent (<one month) smoker, HTN, HLP, family history of CAD, obesity. Risk Scores: Score 0 - 3: 2.5% MACE over next 6 weeks - Discharge Home Score 4 - 6: 20.3% MACE over next 6 weeks - Admit for Clinical Observation Score 7 - 10: 72.7% MACE over next 6 weeks - Early Invasive Strategies Course & Med Decision Making: Course & Med Decision Making Pertinent Labs and Imaging studies reviewed. (See chart for details) The patient came today hoping that we could prescribe her clonazepam for the next month. I explained to her that the emergency room is not able to do this. We will give her a single dose in the emergency room again but stressed to her that she cannot keep coming to the emergency room simply for anxiety. She states verbal understanding. I told her to follow-up with the guidance Center tomorrow and continue to press them for an earlier appointment or at least medication management until then. They are the ones to prescribe her clonazepam and she needs to maintain a single source for these kinds of medications. The patient also needs to establish with a primary care physician. She is stable for discharge at this time. [] Dragon Disclaimer: Dragon Disclaimer: This electronic medical record was generated, in whole or in part, using a voice recognition dictation system. Departure Departure: Impression: Primary Impression: Panic attack Disposition: HOME / SELF CARE / HOMELESS Condition: STABLE Referrals: PCP,NO (PCP) Patient Instructions: Anxiety and Panic Attacks, [id number] STEPHANIA AGUILAR DO Jul 12, 2021 06:39
== END 2021-07-12 06:44 | disposition home or self-care (01) ==
LOC: ER 06:17
DX: F41.0 Panic disorder [episodic paroxysmal anxiety] (principal); I10 Essential (primary) hypertension; F17.210 Nicotine dependence, cigarettes, uncomplicated; Z88.0 Allergy status to penicillin; Z88.6 Allergy status to analgesic agent; Z88.5 Allergy status to narcotic agent
CPT/HCPCS: 99283

== ENCOUNTER 2021-07-14 15:54 | Emergency (ER) | payer OTHER ==
[~2021-07-14] VITALS: Ht 154.9 cm; Wt 57.4 kg
--- NOTE | 2021-07-14 16:45 | PHYS DOC ---
Past History Past Medical History: Anxiety, Hypertension Additional Past Medical Histor: HYPOGLYCEMIA, ULCERS Past Surgical History: , Hysterectomy, Other Additional Past Surgical Histo: D&C Smoking: Cigarettes, Less than 1pk/day Alcohol Use: None Drug Use: Benzodiazepine, Marijuana Adult General Chief Complaint Chief Complaint: ANXIETY/PANIC ATTACK HPI HPI Patient is a 41-year-old female presenting for anxiety. Initially states to nurse on arrival that she is here " needing help with medication refill". She is well-known to our facility and has been here twice in the past week for similar complaints. She is requesting clonazepam refill as she reports this is a chronic medication for her. Denies any SI/HI today Review of Systems Review of Systems Fourteen body systems of review of systems have been reviewed. See HPI for pertinent positives and negative responses, other blood all other systems are negative, non-pertinent or non-contributory Allergies Allergies Allergies Coded Allergies Type Severity Reaction Last Updated Verified Penicillins Allergy Unknown 07/08/21 Yes ibuprofen Allergy Unknown 07/08/21 Yes tramadol Allergy Unknown 07/08/21 Yes hydrocodone Adverse Reaction Unknown 07/08/21 Yes Physical Exam Physical Exam Constitutional: Well developed, well nourished, no acute distress, non-toxic appearance. HENT: Normocephalic, atraumatic, bilateral external ears normal, oropharynx moist, no oral exudates, poor dentition, nose normal. Eyes: PERRLA, EOMI, conjunctiva normal, no discharge. Neck: Normal range of motion, no tenderness, supple, no stridor. Cardiovascular: Heart rate regular, sinus rhythm, no murmurs rubs or gallops Lungs & Thorax: Bilateral breath sounds clear to auscultation Abdomen: Bowel sounds normal, soft, no tenderness, no masses, no pulsatile masses. Nonsurgical abdomen, no peritoneal signs Skin: Warm, dry, no erythema, no rash. Back: No tenderness, no CVA tenderness. Extremities: No tenderness, no cyanosis, no clubbing, ROM intact, no edema. Neurologic: Alert and oriented X 3, grossly normal motor & sensory function, no focal deficits noted. Psychologic: Flat affect and mood Current Patient Data Vital Signs Vital Signs Date Time Temp Pulse Resp B/P (MAP) Pulse Ox O2 Delivery O2 Flow Rate FiO2 07/14/21 16:54 98.2 75 16 99/76 (84) 98 Room Air Vital Signs Date Time Temp Pulse Resp B/P (MAP) Pulse Ox O2 Delivery O2 Flow Rate FiO2 07/14/21 16:54 98.2 75 16 99/76 (84) 98 Room Air EKG EKG [] Radiology/Procedures Radiology/Procedures [] Heart Score C/O Chest Pain: No Risk Factors: Risk Factors: DM, Current or recent (<one month) smoker, HTN, HLP, family history of CAD, obesity. Risk Scores: Risk Factors: DM, Current or recent (<one month) smoker, HTN, HLP, family history of CAD, obesity. Course & Med Decision Making Course & Med Decision Making ABCs unremarkable HPI consistent with numerous repeat ER visits requesting clonazepam refill. Physical exam nonconcerning. [facility] reviewed, last formal prescription was April 2021. States she gets this chronically but that is not the case Appears patient got one-time doses of clonazepam at last 2 visits. Patient in no acute distress today. I feel she is pain seeking/exhibiting drug-seeking behavior. I had extensive conversation with her last time I personally saw her several weeks ago about importance of following up with outpatient behavioral health provider, she has yet to do this I also educated her extensively that clonazepam/benzodiazepines are not the gold standard for panic/anxiety. She is fixated on getting prescription today which I declined. Patient subsequently eloped prior to repeat evaluation and discussion Og Disclaimer Og Disclaimer This electronic medical record was generated, in whole or in part, using a voice recognition dictation system. Departure Departure: Impression: Primary Impression: Drug-seeking behavior Additional Impression: Anxiety Disposition: 07 LEFT AWOL/ELOPED Condition: STABLE Referrals: PCP,NO (PCP) Additional Instructions: You were seen in the ED for evaluation of anxiety. Anxiety is a serious medical condition with unfortunate effects on daily living. You should utilize the Behavior Health resources for further management of your symptoms. You need to follow-up and/or seek care at local guidance/guidance Center as ER is not the place to come in for chronic care Problem Qualifiers JO MERCADO DO Jul 14, 2021 16:45
[2021-07-14 16:54] VITALS: BP 99/76
== END 2021-07-14 16:58 | disposition home or self-care (01) ==
LOC: ER 15:54
DX: F41.9 Anxiety disorder, unspecified (principal); Z76.5 Malingerer [conscious simulation]; I10 Essential (primary) hypertension; F17.210 Nicotine dependence, cigarettes, uncomplicated; Z88.0 Allergy status to penicillin; Z88.5 Allergy status to narcotic agent; Z88.6 Allergy status to analgesic agent
CPT/HCPCS: 99281

== ENCOUNTER 2021-07-18 20:56 | Emergency (ER) | payer OTHER ==
[~2021-07-18] VITALS: Ht 152.4 cm; Wt 56.3 kg
[2021-07-18 21:01] VITALS: BP 109/75
--- NOTE | 2021-07-18 21:07 | PHYS DOC ---
Past History Past Medical History: Anxiety, Hypertension Additional Past Medical Histor: HYPOGLYCEMIA, ULCERS (JETHRO MAGDALENO APRN) Past Surgical History: , Hysterectomy, Other Additional Past Surgical Histo: D&C (JETHRO MAGDALENO APRN) Smoking: Cigarettes, Greater than 1 pack/day Alcohol Use: Occasionally Drug Use: Benzodiazepine, Marijuana (JETHRO MAGDALENO APRN) General Adult EDM: Chief Complaint: ANXIETY/PANIC ATTACK HPI: HPI: Is a 41-year-old female that presents today with anxiety. Patient states she has had issues with anxiety for over 20 years and she has seen a counselor in the past but has not helped she currently denies any medications that she is taking for her anxiety. Patient states that she has had alcohol this evening she said she has had 2 beers, she denies any drug use she does state that she smokes on a regular basis. Patient denies suicidal homicidal thoughts to myself to nursing staff, and to EMS staff. Patient states that she does not have chest pain she does have some shortness of air she denies fever or chills, or cough. Patient states that she has had both of her COVID vaccines approximately 3 months ago and she had an influenza vaccine as well. (JETHRO MAGDALENO APRN) Review of Systems: Review of Systems: Constitutional: Denies fever or chills Eyes: Denies change in visual acuity HENT: Denies nasal congestion or sore throat Respiratory: Shortness of air denies cough Cardiovascular: Denies chest pain or edema GI: Denies abdominal pain, nausea, vomiting, bloody stools or diarrhea : Denies dysuria Musculoskeletal: Denies back pain or joint pain Integument: Denies rash Neurologic: Denies headache, focal weakness or sensory changes Endocrine: Denies polyuria or polydipsia Lymphatic: Denies swollen glands Psychiatric: Anxiety denies anxiety (JETHRO MAGDALENO APRN) Allergies: Allergies: Allergies Coded Allergies Type Severity Reaction Last Updated Verified Penicillins Allergy Unknown 07/08/21 Yes ibuprofen Allergy Unknown 07/08/21 Yes tramadol Allergy Unknown 07/08/21 Yes hydrocodone Adverse Reaction Unknown 07/08/21 Yes (JETHRO MAGDALENO APRN) Physical Exam: PE: Constitutional: Somnolent well developed, well nourished, no acute distress, non-toxic appearance. [] HENT: Normocephalic, atraumatic, bilateral external ears normal, oropharynx moist, no oral exudates, nose normal. [] Eyes: PERRLA, EOMI, conjunctiva normal, no discharge. [] Neck: Normal range of motion, no tenderness, supple, no stridor. [] Cardiovascular:Heart rate regular rhythm, no murmur [] Lungs & Thorax: Bilateral breath sounds clear to auscultation [] Abdomen: Bowel sounds normal, soft, no tenderness, no masses, no pulsatile masses. [] Skin: Warm, dry, no erythema, no rash. [] Back: No tenderness, no CVA tenderness. [] Extremities: No tenderness, no cyanosis, no clubbing, ROM intact, no edema. [] Neurologic: Alert and oriented X 3, normal motor function, normal sensory function, no focal deficits noted. [] Psychologic: Affect depressed, judgement normal, mood normal. [] (JETHRO MAGDALENO APRN) Current Patient Data: Labs: Laboratory Tests Test 07/18/21 21:10 07/18/21 21:20 Glucose (Fingerstick) 97 mg/dL White Blood Count 6.6 x10^3/uL Red Blood Count 4.30 x10^6/uL Hemoglobin 14.3 g/dL Hematocrit 42.2 % Mean Corpuscular Volume 98 fL Mean Corpuscular Hemoglobin 33 pg Mean Corpuscular Hemoglobin Concent 34 g/dL Red Cell Distribution Width 14.4 % Platelet Count 364 x10^3/uL Neutrophils (%) (Auto) 41 % Lymphocytes (%) (Auto) 47 % Monocytes (%) (Auto) 10 % Eosinophils (%) (Auto) 2 % Basophils (%) (Auto) 1 % Neutrophils # (Auto) 2.7 x10^3uL Lymphocytes # (Auto) 3.1 x10^3/uL Monocytes # (Auto) 0.6 x10^3/uL Eosinophils # (Auto) 0.1 x10^3/uL Basophils # (Auto) 0.1 x10^3/uL Sodium Level 142 mmol/L Potassium Level 3.9 mmol/L Chloride Level 103 mmol/L Carbon Dioxide Level 27 mmol/L Anion Gap 12 Blood Urea Nitrogen 6 mg/dL Creatinine 0.7 mg/dL Estimated GFR (Cockcroft-Gault) 111.0 BUN/Creatinine Ratio 9 Glucose Level 92 mg/dL Calcium Level 9.1 mg/dL Total Bilirubin Pending Aspartate Amino Transf (AST/SGOT) Pending Alanine Aminotransferase (ALT/SGPT) Pending Alkaline Phosphatase Pending Troponin I High Sensitivity 9 ng/L Total Protein Pending Albumin Pending Albumin/Globulin Ratio Pending Salicylates Level 4.0 mg/dL Salicylate Last Dose Date Na Salicylate Last Dose Time Na Acetaminophen Level 6.7 mcg/mL Acetaminophen Last Dose Date Na Acetaminophen Last Dose Time Na Ethyl Alcohol Level 216 mg/dL Current Medications Medications (Trade) Dose Ordered Sig/Thang Route PRN Reason Start Time Stop Time Status Last Admin Dose Admin Sodium Chloride 1,000 ml @ 1,000 mls/hr 1X ONCE IV 07/18/21 21:30 07/18/21 22:29 07/18/21 21:21 Laboratory Tests Test 07/18/21 21:10 07/18/21 21:20 Glucose (Fingerstick) 97 mg/dL White Blood Count 6.6 x10^3/uL Red Blood Count 4.30 x10^6/uL Hemoglobin 14.3 g/dL Hematocrit 42.2 % Mean Corpuscular Volume 98 fL Mean Corpuscular Hemoglobin 33 pg Mean Corpuscular Hemoglobin Concent 34 g/dL Red Cell Distribution Width 14.4 % Platelet Count 364 x10^3/uL Neutrophils (%) (Auto) 41 % Lymphocytes (%) (Auto) 47 % Monocytes (%) (Auto) 10 % Eosinophils (%) (Auto) 2 % Basophils (%) (Auto) 1 % Neutrophils # (Auto) 2.7 x10^3uL Lymphocytes # (Auto) 3.1 x10^3/uL Monocytes # (Auto) 0.6 x10^3/uL Eosinophils # (Auto) 0.1 x10^3/uL Basophils # (Auto) 0.1 x10^3/uL Sodium Level 142 mmol/L Potassium Level 3.9 mmol/L Chloride Level 103 mmol/L Carbon Dioxide Level 27 mmol/L Anion Gap 12 Blood Urea Nitrogen 6 mg/dL Creatinine 0.7 mg/dL Estimated GFR (Cockcroft-Gault) 111.0 BUN/Creatinine Ratio 9 Glucose Level 92 mg/dL Calcium Level 9.1 mg/dL Total Bilirubin Pending Aspartate Amino Transf (AST/SGOT) Pending Alanine Aminotransferase (ALT/SGPT) Pending Alkaline Phosphatase Pending Total Protein Pending Albumin Pending Albumin/Globulin Ratio Pending Salicylates Level 4.0 mg/dL Salicylate Last Dose Date Na Salicylate Last Dose Time Na Acetaminophen Level 6.7 mcg/mL Acetaminophen Last Dose Date Na Acetaminophen Last Dose Time Na Ethyl Alcohol Level 216 mg/dL Current Medications Medications (Trade) Dose Ordered Sig/Thang Route PRN Reason Start Time Stop Time Status Last Admin Dose Admin Sodium Chloride 1,000 ml @ 1,000 mls/hr 1X ONCE IV 07/18/21 21:30 07/18/21 22:29 07/18/21 21:21 Vital Signs: Vital Signs Date Time Temp Pulse Resp B/P (MAP) Pulse Ox O2 Delivery O2 Flow Rate FiO2 07/18/21 21:01 98.7 84 20 109/75 (86) 95 Room Air (JETHRO MAGDALENO ADHESIVE PRIMER) EKG: EKG: EKG done at [address] Alejandro at 2200 shows sinus rhythm at a rate of 75 with a SD interval 146 ms with a QTC of 476 no STEMI [] (JETHRO MAGDALENO ADHESIVE PRIMER) Radiology/Procedures: Radiology/Procedures: [REASON: change in mental status PROCEDURE: CT HEAD WO CONTRAST Exam performed: CT scan of the head without contrast. Date of Service: 07/18/2021. Comparison: CT head without contrast from 06/30/2018. Clinical History: Mental status change. Technique: Helical acquisitions are obtained from the foramen magnum to the vertex without intravenous administration of contrast. Findings: The ventricles are midline without evidence of dilatation. Normal abdullahi-white differentiation is maintained. There is no extra axial fluid collection, intraparenchymal hemorrhage or mass lesion. Stable area of low-attenuation in the right cerebellum redemonstrated perhaps a remote infarct. The visualized portions of the orbits, paranasal sinuses and the mastoid air cells appear clear. The calvarium is intact. Impression: 1. No acute intracranial process detected. Stable chronic change. PQRS Compliance Statement: One or more of the following individualized dose reduction techniques were utilized for this examination: 1. Automated exposure control 2. Adjustment of the mA and/or kV according to patient size 3. Use of iterative reconstruction technique End impression Exam performed: One view chest. Indication: Reason: SOA / Spl. Instructions: / History: Date of Service: 07/18/2021 9:34 PM Comparison: 2 views chest from 11/27/2016. Single AP upright portable view chest findings: Cardiomediastinal silhouette is within limits of normal. Linear bibasilar opacities are seen likely atelectasis. No acute infiltrates, effusion or pneumothorax is detected. The bony structures are normal. Impression: Linear bibasilar opacities likely atelectasis, otherwise unremarkable exam. Electronically signed by: Maria Victoria Rudolph MD (07/18/2021 9:59 PM) [facility]] (JETHRO MAGDALENO APRN) Heart Score: C/O Chest Pain: N/A Risk Factors: Risk Factors: DM, Current or recent (<one month) smoker, HTN, HLP, family history of CAD, obesity. Risk Scores: Score 0 - 3: 2.5% MACE over next 6 weeks - Discharge Home Score 4 - 6: 20.3% MACE over next 6 weeks - Admit for Clinical Observation Score 7 - 10: 72.7% MACE over next 6 weeks - Early Invasive Strategies (JETHRO MAGDALENO APRN) Course & Med Decision Making: Course & Med Decision Making Pertinent Labs and Imaging studies reviewed. (See chart for details) [id number] Alejandro. (JETHRO MAGDALENO APRN) Course & Med Decision Making Did not see or evaluate patient. Did not discuss patient with PERSONNEL CLERKS SUPERVISOR. Agree with PERSONNEL CLERKS SUPERVISOR's work-up and disposition per note. (ZANE ALEJANDRO MD) Dragon Disclaimer: Dragon Disclaimer: This electronic medical record was generated, in whole or in part, using a voice recognition dictation system. (JETHRO MAGDALENO APRN) Departure Departure: Impression: Primary Impression: Panic attack Additional Impression: Alcohol intoxication Qualified Codes: F10.920 - Alcohol use, unspecified with intoxication, uncomplicated Disposition: HOME / SELF CARE / HOMELESS Condition: STABLE Referrals: PCP,NO (PCP) Patient Instructions: Alcohol Intoxication, Anxiety and Panic Attacks Additional Instructions: Stop drinking alcohol and stop smoking. Follow-up with your primary care physician or one of the listed resources in the pamphlet that was given to you for further management of your anxiety. JETHRO MAGDALENO APRN Jul 18, 2021 21:07 ZANE ALEJANDRO MD Jul 18, 2021 22:33
[2021-07-18] MEDS ORDERED: IV NORMAL SALINE 1,000ML 1,000 ML IV ONE (21:30)
[2021-07-18 21:40] LABS: BASO # 0.1 x10^3/uL (0.0-0.2); BASO % 1 % (0-3); EOS # 0.1 x10^3/uL (0.0-0.7); EOS % 2 % (0-3); HEMATOCRIT 42.2 % (36.0-47.0); HEMOGLOBIN 14.3 g/dL (12.0-15.5); LYMPH # 3.1 x10^3/uL (1.0-4.8); LYMPH % 47 % (24-48); MEAN CORPUSCULAR HEMOGLOBIN 33 pg (25-35); MEAN CORPUSCULAR HGB CONC 34 g/dL (31-37); MEAN CORPUSCULAR VOLUME 98 fL (79-100); MONO # 0.6 x10^3/uL (0.0-1.1); MONO % 10 % (0-9); NEUT # 2.7 x10^3uL (1.8-7.7); NEUT % 41 % (31-73); PLATELET COUNT 364 x10^3/uL (140-400); RED CELL DISTRIBUTION WIDTH 14.4 % (11.5-14.5); WHITE BLOOD COUNT 6.6 x10^3/uL (4.0-11.0)
[2021-07-18 21:55] LABS: CALCIUM 9.1 mg/dL (8.5-10.1); CREATININE 0.7 mg/dL (0.6-1.0); POTASSIUM 3.9 mmol/L (3.5-5.1)
[2021-07-18 21:57] LABS: ACETAMIN 6.7 mcg/mL (10-30); ETHANOL 216 mg/dL (0-10)
--- NOTE | 2021-07-18 22:00 | EKG ---
[address] [address] Test Date: 2021-07-18 Test Time: 21:54:32 Pat Name: CIRA SINGH Department: Room: Gender: F Web Design Specialist: : 1980 Requested By: JETHRO MAGDALENO Order Number: [id number] Reading MD: George Waite MD Measurements Intervals [place] Rate: 75 P: 31 [place]: 146 QRS: 50 QRSD: 80 T: 54 QT: 424 QTc: 476 Interpretive Statements SINUS RHYTHM LOW LIMB LEAD VOLTAGE QRS(T) CONTOUR ABNORMALITY CONSISTENT WITH ANTEROSEPTAL INFARCT AGE UNDETERMINED ABNORMAL ECG Electronically Signed On 07-20-2021 8:23:15 PERCOLATOR OPERATOR by George Waite MD
--- NOTE | 2021-07-18 22:01 | RAD ---
Exam performed: CT scan of the head without contrast. Date of Service: 07/18/2021. Comparison: CT head without contrast from 06/30/2018. Clinical History: Mental status change. Technique: Helical acquisitions are obtained from the foramen magnum to the vertex without intravenou s administration of contrast. Findings: The ventricles are midline without evidence of dilatation. Normal abdullahi-white differentiation is maint ained. There is no extra axial fluid collection, intraparenchymal hemorrhage or mass lesion. Stable area of low-attenuation in the right cerebellum redemonstrated perhaps a remote infarct. The visualiz ed portions of the orbits, paranasal sinuses and the mastoid air cells appear clear. The calvarium i s intact. Impression: 1. No acute intracranial process detected. Stable chronic change. PQRS Compliance Statement: One or more of the following individualized dose reduction techniques were utilized for this examinat ion: 1. Automated exposure control 2. Adjustment of the mA and/or kV according to patient size 3. Use of iterative reconstruction technique End impression Exam performed: One view chest. Indication: Reason: SOA / Spl. Instructions: / History: Date of Service: 07/18/2021 9:34 PM Comparison: 2 views chest from 11/27/2016. Single AP upright portable view chest findings: Cardiomediastinal silhouette is within limits of normal. Linear bibasilar opacities are seen likely a telectasis. No acute infiltrates, effusion or pneumothorax is detected. The bony structures are norm al. Impression: Linear bibasilar opacities likely atelectasis, otherwise unremarkable exam. Electronically signed by: Maria Victoria Rudolph MD (07/18/2021 9:59 PM) [facility]
[2021-07-18 22:07] LABS: ALBUMIN 4.3 g/dL (3.4-5.0); ALBUMIN/GLOBULIN RATIO 1.2 (1.0-1.7); TOTAL BILIRUBIN 0.2 mg/dL (0.2-1.0)
== END 2021-07-18 23:41 | disposition home or self-care (01) ==
LOC: ER 20:56
DX: F41.0 Panic disorder [episodic paroxysmal anxiety] (principal); F10.129 Alcohol abuse with intoxication, unspecified; I10 Essential (primary) hypertension; F17.210 Nicotine dependence, cigarettes, uncomplicated; Z88.0 Allergy status to penicillin; Z88.5 Allergy status to narcotic agent; Z88.6 Allergy status to analgesic agent; Y90.7 Blood alcohol level of 200-239 mg/100 ml
CPT/HCPCS: 36415; 70450; 71045; 80053; 80329; 82947; 84484; 85025; 93005; 96360; 96361; 99285; G0480; J7030